=== PATIENT | female | born 1980 | race Caucasian/White ===

== ENCOUNTER 2016-07-28 14:25 | Emergency (ER) | payer OTHER ==
[2016-07-28 14:48] VITALS: BP 120/75; PULSE 76; RESP 16; TEMP 98
--- NOTE | 2016-07-28 15:33 | ED ---
General Adult HPI - General Chief complaint: Skin/Abscess/Foreign Body Stated complaint: ingrown toenail follow up/Pain Time Seen by Provider: 07/28/16 15:14 Source: patient, RN notes reviewed Mode of arrival: ambulatory Limitations: no limitations - History of Present Illness Initial comments: This is a 36-year-old female presents with left great toe pain after having her nail removed yesterday by a multiple launch [employer] crewmember. Patient states every 2-3 years her left great toenail falls off and grows back for no apparent reason. Patient states this is never painful but last week her left great toenail was painful. Patient states the multiple launch rocket [employer] crewmember told her she would not be in any pain after he removed the toenail. Patient is in pain today after getting her toenail removed yesterday. Patient has been taking Tylenol and Motrin for the pain with no relief. Patient is not on any antibiotics. Patient has not noticed any drainage or increased swelling to the area. Patient had x-rays done when she first had the pain one week ago and there is no evidence for fracture. Patient denies any past medical history. Patient denies any recent fever, chills, shortness breath, chest pain, abdominal pain, nausea/vomiting/diarrhea, back pain, numbness, tingling, hematuria, headache, or visual changes, or any other complaints. - Related Data Previous Rx's Medication Instructions Recorded Hydrocodone/Acetaminophen [[place] 1 each PO Q6HR PRN #20 tab 03/27/16 5-325] Cephalexin [Keflex] 500 mg PO Q12HR 7 Days 07/28/16 HYDROcodone/APAP 5-325MG [[place] 1 tab PO Q6HR #12 tab 07/28/16 5-325] Allergies Allergy/AdvReac Type Severity Reaction Status Date / Time codeine Allergy Rash/Hives Verified 07/28/16 14:48 morphine Allergy Nausea & Verified 07/28/16 14:48 Vomiting Review of Systems ROS Statement: Those systems with pertinent positive or pertinent negative responses have been documented in the HPI. ROS Other: All systems not noted in ROS Statement are negative. Past Medical History Additional Past Medical History / Comment(s): common variable immune deficiency , crohns, History of Any Multi-Drug Resistant Organisms: None Reported Additional Past Surgical History / Comment(s): port placement and removal, port replacement left side Past Psychological History: Bipolar Smoking Status: Former smoker Past Alcohol Use History: None Reported Past Drug Use History: None Reported General Exam - General Exam Comments Initial Comments: General: The patient is awake and alert, in no distress, and does not appear acutely ill. Neck: The neck is supple, there is no tenderness or JVD. Cardiovascular: There is a regular rate and rhythm. No murmur, rub or gallop is appreciated. Respiratory: Lungs are clear to auscultation, respirations are non-labored, breath sounds are equal. No wheezes, stridor, rales, or rhonchi. Musculoskeletal: There is tenderness to palpation to the nailbed of the left great toe. There is mild erythema to the nailbed and the nail has been removed. There is no swelling of the left great toe. Patient has no pain to the MTP joint of the left great toe. Patient has full range of motion, strength 5/5 and Sensation intact. Posterior tibial and dorsalis pedis pulses are 2+ bilaterally. Neurological: A&O x 3. CN II-XII intact, There are no obvious motor or sensory deficits. Coordination appears grossly intact. Speech is normal. Skin: See musculoskeletal. Skin is warm and dry and no rashes or lesions are noted. Psychiatric: Normal mood and affect. Limitations: no limitations Course Vital Signs 07/28/16 14:46 Temperature 98.0 F Pulse Rate 76 Respiratory 16 Rate Blood Pressure 120/75 O2 Sat by Pulse 98 Oximetry Medical Decision Making - Medical Decision Making This is a 28-year-old female presents with tenderness after having her left great toenail removed yesterday. On physical exam patient is afebrile in the EC. There is tenderness to palpation to the nailbed of the left great toe. There is mild erythema to the nailbed and the nail has been removed. There is no swelling of the left great toe. Patient has no pain to the MTP joint of the left great toe. Patient has full range of motion, strength 5/5 and Sensation intact. Posterior tibial and dorsalis pedis pulses are 2+ bilaterally. I discussed that patient was put on a course of Keflex and given Ulysses for breakthrough pain. I discussed continuation of Motrin as needed. I discussed the patient can continue to rest, ice, elevate and use Neosporin to the toe keeping it covered. I discussed return parameters. I discussed the patient should follow-up with her primary care physician in one to 2 days or return to the EC for any worsening symptoms or for any further concerns. Patient was receptive to this plan and patient will be discharged home. Disposition Clinical Impression: Pain of left great toe Disposition: HOME SELF-CARE Condition: Good Instructions: Nail Removal (ED) Additional Instructions: Please finish entire course of antibiotics. Please continue Motrin for pain please use Ulysses for breakthrough pain. Please follow-up with her primary care provider in one to 2 days or return to the EC for any worsening symptoms or for any further concerns. Prescriptions: Cephalexin [Keflex] 500 mg PO Q12HR 7 Days HYDROcodone/APAP 5-325MG [[place] 5-325] 1 tab PO Q6HR #12 tab Referrals: Carlos Gipson DO [Primary Care Provider] - 1-2 days Time of Disposition: 15:36
== END 2016-07-28 15:55 | disposition home or self-care (01) ==
LOC: EC 14:25
DX: M79.675 Pain in left toe(s) (principal); L53.9 Erythematous condition, unspecified; Z87.891 Personal history of nicotine dependence; Z88.5 Allergy status to narcotic agent; Z98.890 Other specified postprocedural states
CPT/HCPCS: 99283

== ENCOUNTER 2016-10-16 23:38 | Emergency (ER) | payer OTHER ==
[2016-10-17] MEDS ORDERED: HYDROcodone/APAP 5-325MG 1 EACH TAB PO STA (00:09)
[2016-10-17] MEDS ORDERED: KETOROLAC 60 MG/2 ML VIAL IM STA (00:10)
--- NOTE | 2016-10-17 00:13 | ED ---
Upper Extremity HPI - General Chief Complaint: Extremity Injury, Upper Stated Complaint: hand pain Time Seen by Provider: 10/16/16 23:56 Source: patient, RN notes reviewed Mode of arrival: ambulatory Limitations: no limitations - History of Present Illness Initial Comments: This is a pleasant, [id number] female presents emergency department complaining of left hand pain. Patient states that she is having problems with carpal tunnel syndrome for about the past year in both hands. She states that she had an EMG done about 1-1/2 weeks ago. She states that she had a needle put in her left thenar eminence area. She states that since then she's had increased pain to that area. She states she was using a grasping device at work tonight and basically had a locking sensation of her left thumb she states she is having discomfort in the area which is exacerbated by movement and palpation. She denies any distal paresthesias at this time. She denies any proximal injuries. There was no direct trauma. She denies any chest pain or shortness of breath. No fever or chills. 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 Patient denies any other orthopedic complaints at this time. No skin manifestations. No rashes or lesions.. MD Complaint: Injury to:: left, right, hand - Related Data Previous Rx's Medication Instructions Recorded Hydrocodone/Acetaminophen [[place] 1 each PO Q6HR PRN #20 tab 03/27/16 5-325] Cephalexin [Keflex] 500 mg PO Q12HR 7 Days 07/28/16 HYDROcodone/APAP 5-325MG [[place] 1 tab PO Q6HR #12 tab 07/28/16 5-325] HYDROcodone/APAP 5-325MG [[place] 5] 1 each PO Q4HR PRN #10 tab 10/17/16 Naproxen [Naprosyn] 500 mg PO Q12HR #24 tab 10/17/16 Allergies Allergy/AdvReac Type Severity Reaction Status Date / Time codeine Allergy Rash/Hives Verified 07/28/16 14:48 morphine Allergy Nausea & Verified 07/28/16 14:48 Vomiting Review of Systems ROS Statement: Those systems with pertinent positive or pertinent negative responses have been documented in the HPI. ROS Other: All systems not noted in ROS Statement are negative. Past Medical History Additional Past Medical History / Comment(s): common variable immune deficiency , crohns, History of Any Multi-Drug Resistant Organisms: None Reported Additional Past Surgical History / Comment(s): port placement and removal, port replacement left side Past Psychological History: Bipolar Smoking Status: Former smoker Past Alcohol Use History: None Reported Past Drug Use History: None Reported General Exam Limitations: no limitations General appearance: alert, in no apparent distress Head exam: Present: atraumatic, normocephalic, normal inspection Eye exam: Present: normal appearance, EOMI ENT exam: Present: normal exam Neck exam: Present: normal inspection, full ROM. Absent: tenderness, meningismus, lymphadenopathy Respiratory exam: Present: normal lung sounds bilaterally. Absent: respiratory distress, wheezes, rales, rhonchi, stridor Cardiovascular Exam: Present: regular rate, normal rhythm, normal heart sounds. Absent: systolic murmur, diastolic murmur, rubs, gallop, clicks Extremities exam: Present: normal inspection, tenderness, other (Patient has tenderness to the area of the thenar eminence on the left hand. There is no evidence of erythema or infection. Radial pulses 2+. Distal sensation intact. Capillary refill less than 2 seconds. Range of motion is limited secondary to pain. Patient is able to oppose with a thumb, however, only slightly.). Absent: full ROM Back exam: Present: normal inspection Neurological exam: Present: alert, oriented X3, CN II-XII intact Psychiatric exam: Present: normal affect, normal mood Skin exam: Present: warm, dry, intact, normal color, rash Course Vital Signs 10/16/16 23:48 Temperature 98.2 F Pulse Rate 83 Respiratory 16 Rate Blood Pressure 136/87 O2 Sat by Pulse 100 Oximetry Procedures - Procedures Initial comment: Short arm thumb spica splint applied on the left. Distal neurovascular status intact post-application. OCL splint Medical Decision Making - Medical Decision Making Patient be treated with immobilization. We'll have the patient follow-up with orthopedics. I'm unsure what the patient has this point. It seems like she has some form of neuropathy. X-rays were negative for fracture or any acute pathology. There does not appear to be any type of infection involved. Patient 's sensation is intact. Capillary refill less than 2 seconds. Patient told to follow-up without fail. Patient placed in a thumb spica splint. Disposition Clinical Impression: Neuropathic pain of left hand Disposition: HOME SELF-CARE Condition: Good Instructions: Paresthesia (ED), Splint Care (ED) Additional Instructions: Ensure that you follow-up with the orthopedic physician as directed. Return to the ER at once if the symptoms worsen or problems or difficulties arise. Wear the splint as directed and to follow-up with the orthopedic physician. Prescriptions: HYDROcodone/APAP 5-325MG [[place] 5] 1 each PO Q4HR PRN #10 tab PRN Reason: Pain Naproxen [Naprosyn] 500 mg PO Q12HR #24 tab Referrals: Carlos Gipson DO [Primary Care Provider] - 1-2 days Time of Disposition: 00:24
--- NOTE | 2016-10-17 00:33 | XR ---
EXAM: XR Left Hand Complete, 3 or More Views CLINICAL HISTORY: Reason: Pain TECHNIQUE: Frontal, lateral and oblique views of the left hand. COMPARISON: No relevant prior studies available. FINDINGS: Bones/joints: No evidence of fracture, dislocation or bony erosion. No significant arthritic changes. Soft tissues: No radiopaque foreign bodies identified. IMPRESSION: No significant bone or joint abnormalities.
[2016-10-17 01:02] VITALS: BP 112/54; PULSE 72; RESP 18; TEMP 99.1
== END 2016-10-17 01:03 | disposition home or self-care (01) ==
LOC: EC 23:38
DX: M79.642 Pain in left hand (principal); Z88.5 Allergy status to narcotic agent; Z87.891 Personal history of nicotine dependence
CPT/HCPCS: 99283; 29125; 96372; 73130; J1885

== ENCOUNTER 2016-12-02 22:44 | Emergency (ER) | payer MEDICARE, OTHER ==
[2016-12-02 22:59] VITALS: BP 123/79; PULSE 72; RESP 20; TEMP 99
[2016-12-02] MEDS ORDERED: CEPHALEXIN 500MG STARTER PACK 4 CAP BTL PO STA (23:15)
--- NOTE | 2016-12-02 23:21 | ED ---
General Adult HPI - General Chief complaint: ENT Stated complaint: Neck pain Time Seen by Provider: 12/02/16 23:04 Source: patient, RN notes reviewed Mode of arrival: ambulatory Limitations: no limitations - History of Present Illness Initial comments: Patient is a pleasant 36-year-old female presenting to the emergency department complaining of right-sided neck pain. Onset of symptoms was a few hours ago. Patient recently started hydrochlorothiazide and then increased the dose. Patient questions if this could be related to that. Patient has only been on this for a couple of days. Patient denies swelling of the back of her throat. No swelling. No facial swelling. No difficulty in breathing. No fevers. Patient did notice swollen lymph gland and states it is tender. - Related Data Home Medications Medication Instructions Recorded Confirmed ARIPiprazole [Abilify] 5 mg PO DAILY 12/02/16 12/02/16 Aspirin EC [Ecotrin Low Dose] 81 mg PO DAILY 12/02/16 12/02/16 Calcium Carb/Vitamin D3/Vit K1 1 tab PO DAILY 12/02/16 12/02/16 [Viactiv Soft Chew Tablet] Cyanocobalamin (Vitamin B-12) 1,000 mcg PO DAILY 12/02/16 12/02/16 [Vitamin B-12] Divalproex [Depakote] 250 mg PO BID 12/02/16 12/02/16 FLUoxetine HCL [PROzac] 40 mg PO DAILY 12/02/16 12/02/16 Hydrochlorothiazide [Hydrodiuril] 12.5 mg PO DAILY 12/02/16 12/02/16 Pyridoxine [Vitamin B-6] 50 mg PO DAILY 12/02/16 12/02/16 Previous Rx's Medication Instructions Recorded Cephalexin [Keflex] 500 mg PO QID #40 cap 12/02/16 Allergies Allergy/AdvReac Type Severity Reaction Status Date / Time codeine Allergy Rash/Hives Verified 12/02/16 22:59 morphine Allergy Rash/Hives Verified 12/02/16 23:15 Review of Systems ROS Statement: Those systems with pertinent positive or pertinent negative responses have been documented in the HPI. ROS Other: All systems not noted in ROS Statement are negative. Constitutional: Denies: fever Eyes: Denies: eye pain ENT: Denies: ear pain, throat pain Respiratory: Denies: cough Cardiovascular: Denies: chest pain Endocrine: Denies: fatigue Gastrointestinal: Denies: abdominal pain Genitourinary: Denies: urgency Musculoskeletal: Denies: back pain Skin: Denies: rash Neurological: Denies: headache Past Medical History Additional Past Medical History / Comment(s): common variable immune deficiency , crohns, History of Any Multi-Drug Resistant Organisms: None Reported Additional Past Surgical History / Comment(s): port placement and removal, port replacement left side Past Psychological History: Bipolar Smoking Status: Former smoker Past Alcohol Use History: None Reported Past Drug Use History: None Reported General Exam Limitations: no limitations General appearance: alert, in no apparent distress Head exam: Present: atraumatic Eye exam: Present: normal appearance, PERRL ENT exam: Present: normal oropharynx, other (No swelling of the posterior pharynx or tongue or lips. No swelling in the submandibular region.) Neck exam: Present: lymphadenopathy (Right-sided with tenderness) Respiratory exam: Present: normal lung sounds bilaterally Cardiovascular Exam: Present: regular rate, normal rhythm GI/Abdominal exam: Present: soft. Absent: tenderness Extremities exam: Absent: tenderness Neurological exam: Present: alert Psychiatric exam: Present: normal affect, normal mood Skin exam: Present: normal color Course Vital Signs 12/02/16 22:55 Temperature 99 F Pulse Rate 72 Respiratory 20 Rate Blood Pressure 123/79 O2 Sat by Pulse 98 Oximetry Medical Decision Making - Medical Decision Making Patient states Keflex is normally what works best for her and requests this with her history of common variable immune deficiency. Disposition Clinical Impression: Acute cervical adenitis Disposition: HOME SELF-CARE Condition: Stable Instructions: Adenitis (ED) Additional Instructions: Please follow-up with your doctor this week. Return for difficulty breathing, increased swelling, throat swelling, rash, worsening symptoms or other concerns. Prescriptions: Cephalexin [Keflex] 500 mg PO QID #40 cap Referrals: Carlos Gipson DO [Primary Care Provider] - 1-2 days Time of Disposition: 23:21
== END 2016-12-02 23:26 | disposition home or self-care (01) ==
LOC: EC 22:44
DX: L04.0 Acute lymphadenitis of face, head and neck (principal); F31.9 Bipolar disorder, unspecified; Z87.891 Personal history of nicotine dependence; Z79.899 Other long term (current) drug therapy; Z79.82 Long term (current) use of aspirin; Z88.5 Allergy status to narcotic agent
CPT/HCPCS: 99283

== ENCOUNTER → 2017-12-08 | Outpatient (CLI) | payer MEDICARE, OTHER ==
[2017-12-08 15:03] LABS: HGB 13.5 gm/dL (11.4-16.0); MCH 30.1 pg (25.0-35.0); MCHC 34.5 g/dL (31.0-37.0); MCV 87.1 fL (80.0-100.0); Mean Platelet Volume 7.4; Platelet Count 218 k/uL (150-450); RBC 4.48 m/uL (3.80-5.40); RDW 12.5 % (11.5-15.5); WBC 6.9 k/uL (3.8-10.6)
[2017-12-08 15:11] LABS: ALT 22 U/L (9-52); AST 21 U/L (14-36); Albumin 4.3 g/dL (3.5-5.0); Alkaline Phosphatase 57 U/L (38-126); Anion Gap 9 mmol/L; Blood Urea Nitrogen 11 mg/dL (7-17); Calcium 9.3 mg/dL (8.4-10.2); Carbon Dioxide 28 mmol/L (22-30); Chloride 102 mmol/L (98-107); Glucose 125 mg/dL (74-99); Potassium 4.7 mmol/L (3.5-5.1); Sodium 139 mmol/L (137-145); Total Bilirubin 0.3 mg/dL (0.2-1.3); Total Protein 6.7 g/dL (6.3-8.2)
[2017-12-08 15:27] LABS: T4, Free (Free Thyroxine) 0.73 ng/dL (0.78-2.19)
[2017-12-08 19:24] LABS: Thyroid Peroxidase Antibodies 189.4 U/mL (0.0-60.0)
[2017-12-08 21:01] LABS: ACTH 11.4 pg/mL (0.00-45.99)
== END | disposition home or self-care (01) ==
LOC: LABWHC1 14:40
PROVIDERS: ATTEND Internal Medicine Endocrinology, Diabetes & Metabolism
DX: R53.83 Other fatigue (principal)
CPT/HCPCS: 36415; 80053; 82024; 82533; 82607; 83001; 83002; 84146; 84439; 84443; 84481; 85027; 86376

== ENCOUNTER → 2018-01-03 | Outpatient (CLI) | payer MEDICARE, OTHER | END | disposition home or self-care (01) | LOC: LABWHC1 14:11 | PROVIDERS: ATTEND Internal Medicine Endocrinology, Diabetes & Metabolism | DX: R53.83 Other fatigue (principal) | CPT/HCPCS: 36415; 84443; 86376 ==

== ENCOUNTER 2018-01-08 19:02 | Emergency (ER) | payer MEDICARE, OTHER ==
[2018-01-08 19:12] VITALS: BP 113/67; PULSE 61; RESP 18; TEMP 98.7
[2018-01-08] MEDS ORDERED: CLINDAMYCIN 150 MG CAP PO STA (19:47)
--- NOTE | 2018-01-08 19:47 | ED ---
ENT HPI - General Chief complaint: Dental/Oral Stated complaint: DENTAL PAIN Time Seen by Provider: 01/08/18 19:18 Source: patient, RN notes reviewed, old records reviewed Mode of arrival: ambulatory Limitations: no limitations - History of Present Illness Initial comments: This Patient is a 37-year-old female presents emergency department today she complains of dental pain. Patient reports that she had a tooth removal by oral surgeon 3 days ago. Patient states that she was then started on amoxicillin after the surgery. She reports she has a history of immune insufficiency. She is concerned with amoxicillin was not working for infection prevention. She reports is having worsening pain. She states that she has worsening swelling over the side of her face and jaw line. She reports the pain seems to be spreading. She reports that they were initially going to close the wound tooth removal of sutures however thethat her tooth had was too large for them to put sutures. Patient has been taking Motrin Tylenol and pain medication with little relief. - Related Data Home Medications Medication Instructions Recorded Confirmed ARIPiprazole [Abilify] 5 mg PO HS 12/02/16 12/02/16 Aspirin EC [Ecotrin Low Dose] 81 mg PO DAILY 12/02/16 12/02/16 Calcium Carb/Vitamin D3/Vit K1 1 tab PO DAILY 12/02/16 12/02/16 [Viactiv Soft Chew Tablet] Cyanocobalamin (Vitamin B-12) 1,000 mcg PO DAILY 12/02/16 12/02/16 [Vitamin B-12] Divalproex [Depakote] 250 mg PO BID 12/02/16 12/02/16 FLUoxetine HCL [PROzac] 40 mg PO DAILY 12/02/16 12/02/16 Hydrochlorothiazide [Hydrodiuril] 12.5 mg PO BID 12/02/16 12/02/16 Pyridoxine [Vitamin B-6] 50 mg PO DAILY 12/02/16 12/02/16 Previous Rx's Medication Instructions Recorded Cephalexin [Keflex] 500 mg PO QID #40 cap 12/02/16 Clindamycin [Cleocin] 450 mg PO TID 7 Days capsule 01/08/18 HYDROcodone/APAP 5-325MG [[place] 1 tab PO Q6HR PRN #10 tab 01/08/18 5-325] Allergies Allergy/AdvReac Type Severity Reaction Status Date / Time codeine Allergy Rash/Hives Verified 01/08/18 19:11 morphine Allergy Rash/Hives Verified 01/08/18 19:11 Review of Systems ROS Statement: Those systems with pertinent positive or pertinent negative responses have been documented in the HPI. ROS Other: All systems not noted in ROS Statement are negative. Past Medical History Past Medical History: No Reported History Additional Past Medical History / Comment(s): common variable immune deficiency , crohns, History of Any Multi-Drug Resistant Organisms: None Reported Additional Past Surgical History / Comment(s): port placement and removal, port replacement left side Past Psychological History: Bipolar Smoking Status: Former smoker Past Alcohol Use History: None Reported Past Drug Use History: None Reported General Exam - General Exam Comments Initial Comments: 37-year-old female. Alert and oriented. No significant distress. Limitations: no limitations General appearance: alert, in no apparent distress Head exam: Present: atraumatic, normocephalic, normal inspection Eye exam: Present: normal appearance, PERRL, EOMI. Absent: scleral icterus, conjunctival injection, periorbital swelling ENT exam: Present: normal exam, mucous membranes moist. Absent: normal oropharynx (Patient has evidence of removed . Evidence would appears to be a dry socket in the area. No large open area. She is very tender to palpation. Swelling noted. Concern for possibility of infection.) Neck exam: Present: normal inspection. Absent: tenderness, meningismus, lymphadenopathy Respiratory exam: Present: normal lung sounds bilaterally. Absent: respiratory distress, wheezes, rales, rhonchi, stridor Cardiovascular Exam: Present: regular rate, normal rhythm, normal heart sounds. Absent: systolic murmur, diastolic murmur, rubs, gallop, clicks Extremities exam: Present: normal inspection, full ROM, normal capillary refill. Absent: tenderness, pedal edema, joint swelling, calf tenderness Back exam: Present: normal inspection Neurological exam: Present: alert Psychiatric exam: Present: normal affect, normal mood Course Vital Signs 01/08/18 19:08 Temperature 98.7 F Pulse Rate 61 Respiratory 18 Rate Blood Pressure 113/67 O2 Sat by Pulse 96 Oximetry Medical Decision Making - Medical Decision Making Patient is a 37-year-old female with significant pain and swelling over her right molars after is removal. Patient has evidence of swelling over the lower jaw. She has what appears to be a dry socket with associated infection around the gum and this time. We'll change the Patient to clindamycin antibiotic. I discussed using Motrin Tylenol. We'll write the Patient for short course of pain medication as well. Discussed return parameters. Patient understands treatment plan plan will comply. Return is stressed that she needs follow-up with her oral surgeon on Wednesday. Disposition Clinical Impression: Dental infection Disposition: HOME SELF-CARE Condition: Good Instructions: Dental Abscess (ED) Additional Instructions: Patient advised follow-up with primary care physician and oral surgeon. Take antibiotics as prescribed. Return to emergency department if any alarming signs or symptoms occur. Prescriptions: Clindamycin [Cleocin] 450 mg PO TID 7 Days capsule HYDROcodone/APAP 5-325MG [[place] 5-325] 1 tab PO Q6HR PRN #10 tab PRN Reason: Pain Is patient prescribed a controlled substance at d/c from ED?: No Referrals: Carlos Gipson DO [Primary Care Provider] - 1-2 days Time of Disposition: 19:42
== END 2018-01-08 20:01 | disposition home or self-care (01) ==
LOC: EC 19:02
DX: K04.7 Periapical abscess without sinus (principal); K08.409 Partial loss of teeth, unspecified cause, unspecified class; F31.9 Bipolar disorder, unspecified; Z87.891 Personal history of nicotine dependence; Z79.82 Long term (current) use of aspirin; Z79.899 Other long term (current) drug therapy; Z88.5 Allergy status to narcotic agent
CPT/HCPCS: 99283

== ENCOUNTER 2018-03-31 17:06 | Inpatient (IN) | payer MEDICARE, OTHER ==
[2018-03-31] MEDS ORDERED: HYDROmorphone 1 MG/ML 1 ML SYRINGE IVP STA (18:18)
[2018-03-31] MEDS ORDERED: SODIUM CHLORIDE 0.9% 1,000 ML IV STA (18:18)
[2018-03-31] MEDS ORDERED: ONDANSETRON 4 MG/2 ML VIAL IVP STA (18:33)
[2018-03-31 18:44] LABS: Basophils % (A) 0 %; Eosinophils # (A) 0.2 k/uL (0-0.7); Eosinophils % (A) 2 %; HCT 39.2 % (34.0-46.0); HGB 13.2 gm/dL (11.4-16.0); Lymphocytes # (A) 1.4 k/uL (1.0-4.8); Lymphocytes % (A) 15 %; MCH 29.2 pg (25.0-35.0); MCHC 33.6 g/dL (31.0-37.0); Mean Platelet Volume 7.1; Monocytes # (A) 0.4 k/uL (0-1.0); Monocytes % (A) 4 %; Neutrophils # (A) 7.3 k/uL (1.3-7.7); Neutrophils % (A) 77 %; Platelet Count 221 k/uL (150-450); RBC 4.51 m/uL (3.80-5.40); RDW 12.4 % (11.5-15.5); WBC 9.5 k/uL (3.8-10.6)
[2018-03-31 18:53] LABS: ALT 14 U/L (9-52); AST 21 U/L (14-36); Albumin 4.1 g/dL (3.5-5.0); Alkaline Phosphatase 60 U/L (38-126); Anion Gap 7 mmol/L; Blood Urea Nitrogen 11 mg/dL (7-17); Calcium 9.5 mg/dL (8.4-10.2); Carbon Dioxide 26 mmol/L (22-30); Chloride 104 mmol/L (98-107); Glucose 115 mg/dL (74-99); Potassium 4.4 mmol/L (3.5-5.1); Sodium 137 mmol/L (137-145); Total Bilirubin 0.3 mg/dL (0.2-1.3); Total Protein 6.6 g/dL (6.3-8.2)
[2018-03-31] MEDS ORDERED: NALOXONE 0.4 MG/ML 1 ML VIAL IV PRN (19:02)
[2018-03-31] MEDS ORDERED: KETOROLAC 30 MG/ML 1 ML VIAL IVP PRN (19:02)
--- NOTE | 2018-03-31 19:02 | ED ---
General Adult HPI <Faustino Marrero - Last Filed: 03/31/18 19:10> - General Source: patient, RN notes reviewed Mode of arrival: ambulatory Limitations: no limitations <Guillermo Anaya - Last Filed: 03/31/18 19:58> - General Chief complaint: Abdominal Pain Stated complaint: Gallbladder issues Time Seen by Provider: 03/31/18 17:22 - History of Present Illness Initial comments: 37-year-old female with a PMH of variable immunodeficiency, Crohn's presents to the emergency department for a chief complaint of upper abdominal pain 3.5 weeks. Patient states she was evaluated by her primary care physician who ordered a CAT scan and gallbladder study. Patient states she got a call from her primary care provider who told her to present to the emergency department immediately. Patient states she is having loose bowel movements which is normal for her as she has Crohn's disease. She denies noticing any blood in the stool. Patient admits to mild nausea but denies vomiting. She states she is passing gas. She states she is eating and drinking without difficulty. Patient has no other complaints at this time including shortness of breath, chest pain, headache, or visual changes. (Guillermo Anaya) - Related Data Home Medications Medication Instructions Recorded Confirmed FLUoxetine HCL [PROzac] 40 mg PO DAILY 12/02/16 03/31/18 Hizentra 10gm 10 gm SQ TH 03/31/18 03/31/18 Levothyroxine Sodium 25 mcg PO DAILY 03/31/18 03/31/18 Multivitamins, Thera [Multivitamin 1 tab PO DAILY 03/31/18 03/31/18 (formulary)] Allergies Allergy/AdvReac Type Severity Reaction Status Date / Time codeine AdvReac Nausea & Verified 03/31/18 17:42 Vomiting morphine AdvReac Nausea & Verified 03/31/18 17:42 Vomiting Review of Systems ROS Other: All systems not noted in ROS Statement are negative. <Faustino Marrero - Last Filed: 03/31/18 19:10> ROS Other: All systems not noted in ROS Statement are negative. <Guillermo Anaya - Last Filed: 03/31/18 19:58> ROS Statement: Those systems with pertinent positive or pertinent negative responses have been documented in the HPI. Past Medical History Past Medical History: No Reported History Additional Past Medical History / Comment(s): common variable immune deficiency , crohns, History of Any Multi-Drug Resistant Organisms: None Reported Additional Past Surgical History / Comment(s): port placement and removal, port replacement B side Past Psychological History: Bipolar Smoking Status: Former smoker Past Alcohol Use History: None Reported Past Drug Use History: None Reported <Guillermo Anaya - Last Filed: 03/31/18 19:58> General Exam Limitations: no limitations General appearance: alert, in no apparent distress Head exam: Present: atraumatic, normocephalic, normal inspection Eye exam: Present: normal appearance, PERRL, EOMI. Absent: scleral icterus, conjunctival injection, periorbital swelling ENT exam: Present: normal exam, mucous membranes moist Neck exam: Present: normal inspection, full ROM. Absent: tenderness, meningismus, lymphadenopathy Respiratory exam: Present: normal lung sounds bilaterally. Absent: respiratory distress, wheezes, rales, rhonchi, stridor Cardiovascular Exam: Present: regular rate, normal rhythm, normal heart sounds. Absent: systolic murmur, diastolic murmur, rubs, gallop, clicks GI/Abdominal exam: Present: soft, tenderness (Tenderness in the left upper and left lower quadrants), rebound (Rebound tenderness noted in the left upper quadrant), normal bowel sounds. Absent: distended, guarding, rigid Neurological exam: Present: alert, oriented X3, CN II-XII intact Psychiatric exam: Present: normal affect, normal mood <Guillermo Anaya P - Last Filed: 03/31/18 19:58> Vital Signs 03/31/18 03/31/18 17:14 19:28 Temperature 98.2 F 98.3 F Pulse Rate 92 75 Respiratory 18 16 Rate Blood Pressure 116/82 116/67 O2 Sat by Pulse 97 97 Oximetry Medical Decision Making - Lab Data Result diagrams: 03/31/18 18:25 03/31/18 18:25 <Faustino Marrero - Last Filed: 03/31/18 19:10> - Lab Data Result diagrams: 03/31/18 18:25 03/31/18 18:25 <Guillermo Anaya - Last Filed: 03/31/18 19:58> - Medical Decision Making Patient was reevaluated by myself, Dr. Marrero. CT report reviewed. Abdomen with moderate tenderness left upper abdomen. Patient updated on results and plan. Case was discussed in detail with Dr. Hurtado, who will admit with IV fluids and IV antibiotics. (Faustino Marrero) 89-year-old female presents to the emergency department after receiving results from a CAT scan outpatient study. Patient states she has been having upper abdominal pain for about 3.5 weeks and thought this was related to gallbladder. CT of the abdomen ordered by primary care shows intussusception of the small bowel in the left upper quadrant with bowel wall thickening that may represent active Crohn's disease or enteritis. There is also adjacent mesenteric edema. Findings are compatible with a small bowel intussusception and surrounding edema. Less than tried as or panniculitis in the differential diagnosis as well according to radiologist. On exam patient does have left upper quadrant rebound tenderness as well as left lower quadrant tenderness. CBC, CMP unremarkable. Lactate 1.4. Dr. Marrero spoke with Dr. Guerrero, surgery who will admit patient. Patient given IV fluids and nothing by mouth. Blood cultures drawn and patient started on Zosyn. (Guillermo Anaya) - Lab Data Lab Results 03/31/18 03/31/18 03/31/18 Range/Units 18:25 18:25 18:25 WBC 9.5 (3.8-10.6) k/uL RBC 4.51 (3.80-5.40) m/uL Hgb 13.2 (11.4-16.0) gm/dL Hct 39.2 (34.0-46.0) % MCV 87.0 (80.0-100.0) fL MCH 29.2 (25.0-35.0) pg MCHC 33.6 (31.0-37.0) g/dL RDW 12.4 (11.5-15.5) % Plt Count 221 (150-450) k/uL Neutrophils % 77 % Lymphocytes % 15 % Monocytes % 4 % Eosinophils % 2 % Basophils % 0 % Neutrophils # 7.3 (1.3-7.7) k/uL Lymphocytes # 1.4 (1.0-4.8) k/uL Monocytes # 0.4 (0-1.0) k/uL Eosinophils # 0.2 (0-0.7) k/uL Basophils # 0.0 (0-0.2) k/uL Sodium 137 (137-145) mmol/L Potassium 4.4 (3.5-5.1) mmol/L Chloride 104 (98-107) mmol/L Carbon Dioxide 26 (22-30) mmol/L Anion Gap 7 mmol/L BUN 11 (7-17) mg/dL Creatinine 0.61 (0.52-1.04) mg/dL Est GFR (CKD-EPI)AfAm >90 (>60 ml/min/1.73 sqM) Est GFR (CKD-EPI)NonAf >90 (>60 ml/min/1.73 sqM) Glucose 115 H (74-99) mg/dL Plasma Lactic Acid Keith 1.4 (0.7-2.0) mmol/L Calcium 9.5 (8.4-10.2) mg/dL Total Bilirubin 0.3 (0.2-1.3) mg/dL AST 21 (14-36) U/L ALT 14 (9-52) U/L Alkaline Phosphatase 60 (38-126) U/L Total Protein 6.6 (6.3-8.2) g/dL Albumin 4.1 (3.5-5.0) g/dL Urine Color Urine Appearance (Clear) Urine pH (5.0-8.0) Ur Specific Benedict (1.001-1.035) Urine Protein (Negative) Urine Glucose (UA) (Negative) Urine Ketones (Negative) Urine Blood (Negative) Urine Nitrite (Negative) Urine Bilirubin (Negative) Urine Urobilinogen (<2.0) mg/dL Ur Leukocyte Esterase (Negative) Urine HCG, Qual (Not Detectd) 03/31/18 03/31/18 Range/Units 18:25 18:25 WBC (3.8-10.6) k/uL RBC (3.80-5.40) m/uL Hgb (11.4-16.0) gm/dL Hct (34.0-46.0) % MCV (80.0-100.0) fL MCH (25.0-35.0) pg MCHC (31.0-37.0) g/dL RDW (11.5-15.5) % Plt Count (150-450) k/uL Neutrophils % % Lymphocytes % % Monocytes % % Eosinophils % % Basophils % % Neutrophils # (1.3-7.7) k/uL Lymphocytes # (1.0-4.8) k/uL Monocytes # (0-1.0) k/uL Eosinophils # (0-0.7) k/uL Basophils # (0-0.2) k/uL Sodium (137-145) mmol/L Potassium (3.5-5.1) mmol/L Chloride (98-107) mmol/L Carbon Dioxide (22-30) mmol/L Anion Gap mmol/L BUN (7-17) mg/dL Creatinine (0.52-1.04) mg/dL Est GFR (CKD-EPI)AfAm (>60 ml/min/1.73 sqM) Est GFR (CKD-EPI)NonAf (>60 ml/min/1.73 sqM) Glucose (74-99) mg/dL Plasma Lactic Acid Keith (0.7-2.0) mmol/L Calcium (8.4-10.2) mg/dL Total Bilirubin (0.2-1.3) mg/dL AST (14-36) U/L ALT (9-52) U/L Alkaline Phosphatase (38-126) U/L Total Protein (6.3-8.2) g/dL Albumin (3.5-5.0) g/dL Urine Color Colorless Urine Appearance Clear (Clear) Urine pH 6.5 (5.0-8.0) Ur Specific Benedict 1.006 (1.001-1.035) Urine Protein Negative (Negative) Urine Glucose (UA) Negative (Negative) Urine Ketones Negative (Negative) Urine Blood Negative (Negative) Urine Nitrite Negative (Negative) Urine Bilirubin Negative (Negative) Urine Urobilinogen <2.0 (<2.0) mg/dL Ur Leukocyte Esterase Negative (Negative) Urine HCG, Qual Not Detected (Not Detectd) Disposition <Faustino Marrero - Last Filed: 03/31/18 19:10> Is patient prescribed a controlled substance at d/c from ED?: No Time of Disposition: 19:02 <Guillermo Anaya - Last Filed: 03/31/18 19:58> Clinical Impression: Intussusception Disposition: ADMITTED IP TO THIS [facility] Condition: Good
[2018-03-31 19:20] LABS: Appearance,Urine Clear (Clear); Bilirubin,Urine Negative (Negative); Blood,Urine Negative (Negative); Color,Urine Colorless; Glucose,Urine (UA) Negative (Negative); Ketones,Urine Negative (Negative); Leukocyte Esterase,Urine Negative (Negative); Nitrite,Urine Negative (Negative); PH, Urine 6.5 (5.0-8.0); Protein,Urine Negative (Negative); Specific Gravity,Urine 1.006 (1.001-1.035); Urobilinogen,Urine <2.0 mg/dL (<2.0)
[2018-03-31] MEDS: PIPERACILLIN-TAZOBACTAM 3.375 GM in SODIUM CHLORIDE 0.9% 100 ML IVPB SCH (20:01)
[2018-03-31] MEDS: SODIUM CHLORIDE 0.9% 1,000 ML IV SCH (20:01)
[2018-03-31] MEDS: HYDROmorphone 1 MG/ML 1 ML SYRINGE IVP PRN (21:27)
[2018-04-01] MEDS: HYDROmorphone 1 MG/ML 1 ML SYRINGE IVP PRN ×8 (00:59→22:56)
[2018-04-01] MEDS: PIPERACILLIN-TAZOBACTAM 3.375 GM in SODIUM CHLORIDE 0.9% 100 ML IVPB SCH ×3 (04:27→20:57)
[2018-04-01] MEDS: SODIUM CHLORIDE 0.9% 1,000 ML IV SCH ×3 (05:27→20:30)
[2018-04-01] MEDS ORDERED: SODIUM CHLORIDE 0.9% 1,000 ML IV ONE (11:41)
[2018-04-01] MEDS: PANTOPRAZOLE 40 MG/10 ML VIAL IVP SCH ×2 (11:52→20:26)
--- NOTE | 2018-04-01 12:02 | P.GSCN ---
History of Present Illness Consult date: 04/01/18 Reason for Consult: Left upper quadrant pain History of present illness: 37-year-old female who presented to be evaluated in the emergency room for left upper quadrant abdominal pain with a nausea sensation poor appetite patient stated it started 3 weeks prior became more symptomatic did notify her PCP who did order a CAT scan of the abdomen with contrast. Reviewing the report appeared to be intussusception of the small bowel in the left upper quadrant. Bowel wall thickening may represent active Crohn's disease in which the patient does have a history of. The PCP review the report and advised the patient given the clinical findings on the CAT scan to come into the emergency room to be evaluated patient continues to report having left upper quadrant abdominal discomfort. Additionally patient did undergo HIDA scan on March 31 reviewing that report hyper contractive state suggested EF percent AST and ALT were not elevated urinalysis negative electrolytes within normal limits white count was 9 Currently patient continues to report having discomfort in the left upper quadrant states has Crohn's disease so has frequent loose stools abdomen currently is soft with positive tenderness in the left upper quadrant Review of Systems Essentially unremarkable except as mentioned in the present illness Past Medical History Past Medical History: No Reported History Additional Past Medical History / Comment(s): common variable immune deficiency , crohns, History of Any Multi-Drug Resistant Organisms: None Reported Additional Past Surgical History / Comment(s): port placement and removal, port replacement B side Past Anesthesia/Blood Transfusion Reactions: No Reported Reaction Past Psychological History: Bipolar Smoking Status: Former smoker Past Alcohol Use History: None Reported Past Drug Use History: None Reported - Past Family History Mother Family Medical History: AFIB, Diabetes Mellitus, Hyperlipidemia, Hypertension, Osteoarthritis (OA) Additional Family Medical History / Comment(s): skin cancer Father Family Medical History: Cancer, Congestive Heart Failure (CHF), Coronary Artery Disease (CAD), Hypertension Additional Family Medical History / Comment(s): lung cancer Medications and Allergies Home Medications Medication Instructions Recorded Confirmed Type FLUoxetine HCL [PROzac] 40 mg PO DAILY 12/02/16 03/31/18 History Hizentra 10gm 10 gm SQ TH 03/31/18 03/31/18 History Levothyroxine Sodium 25 mcg PO DAILY 03/31/18 03/31/18 History Multivitamins, Thera [Multivitamin 1 tab PO DAILY 03/31/18 03/31/18 History (formulary)] Allergies Allergy/AdvReac Type Severity Reaction Status Date / Time codeine AdvReac Nausea & Verified 03/31/18 17:42 Vomiting morphine AdvReac Nausea & Verified 03/31/18 17:42 Vomiting Surgical - Exam Vital Signs Temp Pulse Resp BP Pulse Ox 98.2 F 92 18 116/82 97 03/31/18 17:14 03/31/18 17:14 03/31/18 17:14 03/31/18 17:14 03/31/18 17:14 GENERAL APPEARANCE: 37-year-old female patient is alert, oriented, in no acute distress. Reports pain medication has not been effective for pain control continues to have left upper quadrant abdominal pain VITAL SIGNS: Reviewed HEENT: Head is normocephalic and atraumatic. Pupils are equal and reactive. The nares are patent. Oropharynx is clear without lesions. NECK: Supple without lymphadenopathy. Traches midline. HEART: S1, S2. Regular rate and rhythm. Denying chest pain LUNGS: No crackles or wheezes are heard. On room air no shortness of breath ABDOMEN: Soft, tenderness left upper quadrant and left lower quadrant with positive rebound nondistended few bowel sounds. No peritoneal signs. No palpable organomegaly or masses. EXTREMITIES: Normal skin color and turgor. No cyanosis, rash, ulceration, clubbing or edema. Radial pedal pulses are 2/4 bilaterally. NEUROLOGICAL: No focal deficits. Strength and sensation are grossly intact. Results - Labs 03/31/18 18:25 03/31/18 18:25 Abnormal Lab Results - Last 24 Hours (Table) 03/31/18 Range/Units 18:25 Glucose 115 H (74-99) mg/dL Diabetes panel 03/31/18 Range/Units 18:25 Sodium 137 (137-145) mmol/L Potassium 4.4 (3.5-5.1) mmol/L Chloride 104 (98-107) mmol/L Carbon Dioxide 26 (22-30) mmol/L BUN 11 (7-17) mg/dL Creatinine 0.61 (0.52-1.04) mg/dL Glucose 115 H (74-99) mg/dL Calcium 9.5 (8.4-10.2) mg/dL AST 21 (14-36) U/L ALT 14 (9-52) U/L Alkaline Phosphatase 60 (38-126) U/L Total Protein 6.6 (6.3-8.2) g/dL Albumin 4.1 (3.5-5.0) g/dL Calcium panel 03/31/18 Range/Units 18:25 Calcium 9.5 (8.4-10.2) mg/dL Albumin 4.1 (3.5-5.0) g/dL Pituitary panel 03/31/18 Range/Units 18:25 Sodium 137 (137-145) mmol/L Potassium 4.4 (3.5-5.1) mmol/L Chloride 104 (98-107) mmol/L Carbon Dioxide 26 (22-30) mmol/L BUN 11 (7-17) mg/dL Creatinine 0.61 (0.52-1.04) mg/dL Glucose 115 H (74-99) mg/dL Calcium 9.5 (8.4-10.2) mg/dL Adrenal panel 03/31/18 Range/Units 18:25 Sodium 137 (137-145) mmol/L Potassium 4.4 (3.5-5.1) mmol/L Chloride 104 (98-107) mmol/L Carbon Dioxide 26 (22-30) mmol/L BUN 11 (7-17) mg/dL Creatinine 0.61 (0.52-1.04) mg/dL Glucose 115 H (74-99) mg/dL Calcium 9.5 (8.4-10.2) mg/dL Total Bilirubin 0.3 (0.2-1.3) mg/dL AST 21 (14-36) U/L ALT 14 (9-52) U/L Alkaline Phosphatase 60 (38-126) U/L Total Protein 6.6 (6.3-8.2) g/dL Albumin 4.1 (3.5-5.0) g/dL Assessment and Plan Assessment: Impression Present on admission left upper and lower quadrant abdominal pain suspect due to intuaausception of the small bowel in the left upper quadrant with bowel wall thickening may represent active Crohn's disease History of Crohn's disease HIDA scan showed hyper contractility EF 96% Present on admission a history of poor oral intake due to persistent nausea with dry heaves clinical dehydration Plan IV fluid bolus as ordered Pain control IV Zosyn as ordered DVT and GI prophylaxis Further surgical recommendations pending clinical course IV fluid for hydration The above impression and plan of care have been discussed and directed by signing physician. Marta Parker nurse practitioner acting as scribe for signing physician.
[2018-04-01] MEDS: ONDANSETRON 4 MG/2 ML VIAL IVP PRN ×2 (12:59→20:26)
--- NOTE | 2018-04-01 13:28 | P.CONS ---
History of Present Illness - Reason for Consult Consult date: 04/01/18 Medical management - Chief Complaint Abdominal pain - History of Present Illness Patient is a 37-year-old female with a PMH of variable immunodeficiency, Crohn' s disease, hypothyroidism and bipolar disorder presents to the emergency department for a chief complaint of upper abdominal pain 3.5 weeks. Patient states she was evaluated by her primary care physician who ordered a CAT scan and gallbladder study. Patient states she got a call from her primary care provider who told her to present to the emergency department immediately. Patient states she is having loose bowel movements which is normal for her as she has Crohn's disease. Patient is not on any maintenance medications for Crohn's disease. Patient did have prior exacerbation and was given steroids. Patient does take immunoglobulins subcutaneously every week at home. She denies noticing any blood in the stool. Patient admits to nausea but denies vomiting. She states she is passing gas. She states she is eating and drinking without difficulty. Patient has no other complaints at this time including shortness of breath, chest pain, headache, or visual changes. Hepatobiliary scan showed hypercontractile state suggested. CT of the abdominal pelvis showed a paced to be intussusception of small bowel in the left upper quadrant. Bowel wall thickening may represent active Crohn's disease or enteritis. There is adjacent mesenteric edema. Findings compatible with small bowel intussusception and surrounding edema. Mrs. enteritis are pancolitis in the differential diagnosis. No leukocytosis. Lites within normal limits. Review of Systems Constitutional: Patient denies any fever or chills . No generalized weakness or weight loss. Abdomen: A maher does have nausea. No vomiting. Patient does have abdominal pain. No change in diarrhea. Cardiovascular: Patient denies any chest pain or short of breath no palpitations. Respiratory: patient denied any cough is from production. No shortness of breath Neurologic: Patient denied any numbness or tingling headache. Musculoskeletal: Patient denies any complaints of joint swelling or deformity. Skin: Negative Psychiatric: Negative Endocrine: No heat or cold intolerance. No recent weight gain. Genitourinary: No dysuria or hematuria. All other 14 point ROS negative except the above Past Medical History Past Medical History: No Reported History Additional Past Medical History / Comment(s): common variable immune deficiency , crohns, History of Any Multi-Drug Resistant Organisms: None Reported Additional Past Surgical History / Comment(s): port placement and removal, port replacement B side Past Anesthesia/Blood Transfusion Reactions: No Reported Reaction Past Psychological History: Bipolar Smoking Status: Former smoker Past Alcohol Use History: None Reported Past Drug Use History: None Reported - Past Family History Mother Family Medical History: AFIB, Diabetes Mellitus, Hyperlipidemia, Hypertension, Osteoarthritis (OA) Additional Family Medical History / Comment(s): skin cancer Father Family Medical History: Cancer, Congestive Heart Failure (CHF), Coronary Artery Disease (CAD), Hypertension Additional Family Medical History / Comment(s): lung cancer Medications and Allergies Home Medications Medication Instructions Recorded Confirmed Type FLUoxetine HCL [PROzac] 40 mg PO DAILY 12/02/16 03/31/18 History Hizentra 10gm 10 gm SQ TH 03/31/18 03/31/18 History Levothyroxine Sodium 25 mcg PO DAILY 03/31/18 03/31/18 History Multivitamins, Thera [Multivitamin 1 tab PO DAILY 03/31/18 03/31/18 History (formulary)] Allergies Allergy/AdvReac Type Severity Reaction Status Date / Time codeine AdvReac Nausea & Verified 03/31/18 17:42 Vomiting morphine AdvReac Nausea & Verified 03/31/18 17:42 Vomiting Physical Exam Vitals: Vital Signs Temp Pulse Pulse Resp BP BP Pulse Ox 04/01/18 07:00 97.4 F L 68 16 111/64 95 04/01/18 02:32 98.4 F 59 L 16 90/48 99 03/31/18 19:28 98.3 F 75 16 116/67 97 03/31/18 17:14 98.2 F 92 18 116/82 97 Intake and Output 03/31/18 04/01/18 04/01/18 22:59 06:59 14:59 Intake Total 100 Balance 100 Intake: Intake, IV Titration 100 Amount Piperacillin-Tazobactam 3 100 .375 gm In Sodium Chloride 0.9% 100 ml @ 25 mls/hr IVPB Q8H [facility] Rx#: [id number] Other: Voiding Method Toilet # Voids 2 1 Weight 113.398 kg PHYSICAL EXAMINATION: Patient is lying in the bed comfortably, no acute distress, awake alert and oriented.. HEENT: Normocephalic. Neck is supple. Pupils reactive. Nostrils clear. Oral cavity is moist. Ears reveal no drainage. Neck reveals no JVD, carotid bruits, or thyromegaly. CHEST EXAMINATION: Trachea is central. Symmetrical expansion. Lung romero clear to auscultation and percussion. CARDIAC: Normal S1, S2 with no gallops. No murmurs ABDOMEN: Soft. Upper abdominal tenderness with palpation. No guarding or rigidity. Bowel sounds normal. No organomegaly. No abdominal bruits. Extremities: reveal no edema. No clubbing or cyanosis Neurologically awake, alert, oriented x3 with well-coordinated movements. No focal deficits noted Skin: No rash or skin lesions. Psychiatric: Coperative. Nonsuicidal Musculoskeletal: No joint swelling or deformity. Normal range of motion. Results CBC & Chem 7: 03/31/18 18:25 03/31/18 18:25 Labs: Abnormal Lab Results - Last 24 Hours (Table) 03/31/18 Range/Units 18:25 Glucose 115 H (74-99) mg/dL Assessment and Plan Assessment: Left upper small bowel intussusception Possible enteritis versus acute Crohn's disease exacerbation Crohn's disease Hypothyroidism Common Variable immunodeficiency Obesity DVT prophylaxis Plan: Patient will be kept nothing by mouth. Continue with IV fluids and symptomatic management for pain and nausea. Continue with empiric antibiotics. Continue the current management. Will follow closely and further recommendations based on the clinical course. Thank you for your consult. Time with Patient: Greater than 30
--- NOTE | 2018-04-01 14:30 | P.GSHP ---
History of Present Illness H&P Date: 04/01/18 Chief Complaint: Left upper quadrant pain 37-year-old female who presented to be evaluated in the emergency room for left upper quadrant abdominal pain with a nausea sensation poor appetite patient stated it started 3 weeks prior became more symptomatic did notify her PCP who did order a CAT scan of the abdomen with contrast. Reviewing the report appeared to be intussusception of the small bowel in the left upper quadrant. Bowel wall thickening may represent active Crohn's disease in which the patient does have a history of. The PCP review the report and advised the patient given the clinical findings on the CAT scan to come into the emergency room to be evaluated patient continues to report having left upper quadrant abdominal discomfort. Additionally patient did undergo HIDA scan on March 31 reviewing that report hyper contractive state suggested EF percent AST and ALT were not elevated urinalysis negative electrolytes within normal limits white count was 9 Currently patient continues to report having discomfort in the left upper quadrant states has Crohn's disease so has frequent loose stools abdomen currently is soft with positive tenderness in the left upper quadrant - Review of Systems Comment: Essentially unremarkable except as mentioned in the present illness Past Medical History Past Medical History: No Reported History Additional Past Medical History / Comment(s): common variable immune deficiency , crohns, History of Any Multi-Drug Resistant Organisms: None Reported Additional Past Surgical History / Comment(s): port placement and removal, port replacement B side Past Anesthesia/Blood Transfusion Reactions: No Reported Reaction Past Psychological History: Bipolar Smoking Status: Former smoker Past Alcohol Use History: None Reported Past Drug Use History: None Reported - Past Family History Mother Family Medical History: AFIB, Diabetes Mellitus, Hyperlipidemia, Hypertension, Osteoarthritis (OA) Additional Family Medical History / Comment(s): skin cancer Father Family Medical History: Cancer, Congestive Heart Failure (CHF), Coronary Artery Disease (CAD), Hypertension Additional Family Medical History / Comment(s): lung cancer Medications and Allergies Home Medications Medication Instructions Recorded Confirmed Type FLUoxetine HCL [PROzac] 40 mg PO DAILY 12/02/16 03/31/18 History Hizentra 10gm 10 gm SQ TH 03/31/18 03/31/18 History Levothyroxine Sodium 25 mcg PO DAILY 03/31/18 03/31/18 History Multivitamins, Thera [Multivitamin 1 tab PO DAILY 11/15/18 11/15/18 History (formulary)] Allergies Allergy/AdvReac Type Severity Reaction Status Date / Time codeine AdvReac Nausea & Verified 03/31/18 17:42 Vomiting morphine AdvReac Nausea & Verified 03/31/18 17:42 Vomiting Surgical - Exam Vital Signs Temp Pulse Resp BP Pulse Ox 98.2 F 92 18 116/82 97 03/31/18 17:14 03/31/18 17:14 03/31/18 17:14 03/31/18 17:14 03/31/18 17:14 Surgical exam GENERAL APPEARANCE: 37-year-old female patient is alert, oriented, in no acute distress. Reports pain medication has not been effective for pain control continues to have left upper quadrant abdominal pain VITAL SIGNS: Reviewed HEENT: Head is normocephalic and atraumatic. Pupils are equal and reactive. The nares are patent. Oropharynx is clear without lesions. NECK: Supple without lymphadenopathy. Traches midline. HEART: S1, S2. Regular rate and rhythm. Denying chest pain LUNGS: No crackles or wheezes are heard. On room air no shortness of breath ABDOMEN: Soft, tenderness left upper quadrant and left lower quadrant with positive rebound nondistended few bowel sounds. No peritoneal signs. No palpable organomegaly or masses. EXTREMITIES: Normal skin color and turgor. No cyanosis, rash, ulceration, clubbing or edema. Radial pedal pulses are 2/4 bilaterally. NEUROLOGICAL: No focal deficits. Strength and sensation are grossly intact. Results - Labs 03/31/18 18:25 03/31/18 18:25 Abnormal Lab Results - Last 24 Hours (Table) 03/31/18 Range/Units 18:25 Glucose 115 H (74-99) mg/dL Diabetes panel 03/31/18 Range/Units 18:25 Sodium 137 (137-145) mmol/L Potassium 4.4 (3.5-5.1) mmol/L Chloride 104 (98-107) mmol/L Carbon Dioxide 26 (22-30) mmol/L BUN 11 (7-17) mg/dL Creatinine 0.61 (0.52-1.04) mg/dL Glucose 115 H (74-99) mg/dL Calcium 9.5 (8.4-10.2) mg/dL AST 21 (14-36) U/L ALT 14 (9-52) U/L Alkaline Phosphatase 60 (38-126) U/L Total Protein 6.6 (6.3-8.2) g/dL Albumin 4.1 (3.5-5.0) g/dL Calcium panel 03/31/18 Range/Units 18:25 Calcium 9.5 (8.4-10.2) mg/dL Albumin 4.1 (3.5-5.0) g/dL Pituitary panel 03/31/18 Range/Units 18:25 Sodium 137 (137-145) mmol/L Potassium 4.4 (3.5-5.1) mmol/L Chloride 104 (98-107) mmol/L Carbon Dioxide 26 (22-30) mmol/L BUN 11 (7-17) mg/dL Creatinine 0.61 (0.52-1.04) mg/dL Glucose 115 H (74-99) mg/dL Calcium 9.5 (8.4-10.2) mg/dL Adrenal panel 03/31/18 Range/Units 18:25 Sodium 137 (137-145) mmol/L Potassium 4.4 (3.5-5.1) mmol/L Chloride 104 (98-107) mmol/L Carbon Dioxide 26 (22-30) mmol/L BUN 11 (7-17) mg/dL Creatinine 0.61 (0.52-1.04) mg/dL Glucose 115 H (74-99) mg/dL Calcium 9.5 (8.4-10.2) mg/dL Total Bilirubin 0.3 (0.2-1.3) mg/dL AST 21 (14-36) U/L ALT 14 (9-52) U/L Alkaline Phosphatase 60 (38-126) U/L Total Protein 6.6 (6.3-8.2) g/dL Albumin 4.1 (3.5-5.0) g/dL Assessment and Plan Assessment: Impression Present on admission left upper and lower quadrant abdominal pain suspect due to intuaausception of the small bowel in the left upper quadrant with bowel wall thickening may represent active Crohn's disease History of Crohn's disease HIDA scan showed hyper contractility EF 96% Present on admission a history of poor oral intake due to persistent nausea with dry heaves clinical dehydration Plan IV fluid bolus as ordered Pain control IV Zosyn as ordered DVT and GI prophylaxis Further surgical recommendations pending clinical course IV fluid for hydration The above impression and plan of care have been discussed and directed by signing physician. Marta Parker nurse practitioner acting as scribe for signing physician.
[2018-04-01] MEDS: IOPAMIDOL-300 CONTRAST 30 ML VIAL (ORAL USE) PO PRN ×2 (15:16→16:13)
--- NOTE | 2018-04-01 18:21 | CT ---
EXAMINATION TYPE: CT abdomen pelvis w con DATE OF EXAM: 04/01/2018 COMPARISON: Yesterday HISTORY: hx crohns/ab pain CT DLP: 1577 mGycm Automated exposure control for dose reduction was used. TECHNIQUE: Helical acquisition of images was performed from the lung bases through the pelvis. CONTRAST: Performed without Oral Contrast and with IV Contrast, patient injected with 100 mL of Isovue 300. FINDINGS: Multiple axial sections were obtained from the diaphragm to the floor the pelvis with oral and intrav enous contrast. Lung bases show some minimal subpleural nodular infiltrate posteriorly. There is no pleural effusion. There is no pericardial effusion. Liver spleen pancreas gallbladder appear normal. Bile ducts are not dilated. Gallbladder is upper hess it of normal size and measures 4.7 cm. There is no adrenal mass. Kidneys show satisfactory contrast opacification. There is no hydronephrosi s. Ureters are not dilated. There is small amount of free fluid in the pelvis. Bladder distends milagros hly. There is no inguinal hernia. There is mild small bowel mesenteric edema. There is no evidence of a bowel obstruction. Appendix emily ears normal. I see no evidence of a abscess or free air. There is borderline mild thickening of the p roximal jejunum wall. I see no sign of intussusception. IMPRESSION: THERE IS EVIDENCE OF A SMALL JEJUNAL INTUSSUSCEPTION IN THE LEFT UPPER QUADRANT ON EXAM YESTERDAY CHAIM T IS NOT PRESENT ON TODAY'S EXAM. THERE IS MILD SMALL BOWEL MESENTERIC EDEMA. THIS IS CONSISTENT WITH SOME NONSPECIFIC INFLAMMATORY PROCESS OF THE SMALL BOWEL. I SEE NO EVIDENCE OF A BOWEL OBSTRUCTION. NORMAL APPENDIX. MINIMAL THICKENING OF THE WALL OF THE PROXIMAL JEJUNUM.
[2018-04-01 23:13] LABS: Glucose,Whole Blood 75 mg/dL (75-99)
[2018-04-02] MEDS: HYDROmorphone 1 MG/ML 1 ML SYRINGE IVP PRN ×4 (03:29→13:14)
[2018-04-02] MEDS: ONDANSETRON 4 MG/2 ML VIAL IVP PRN ×2 (04:45→14:42)
[2018-04-02] MEDS: PIPERACILLIN-TAZOBACTAM 3.375 GM in SODIUM CHLORIDE 0.9% 100 ML IVPB SCH ×3 (04:45→21:44)
[2018-04-02] MEDS: PANTOPRAZOLE 40 MG/10 ML VIAL IVP SCH ×2 (07:35→21:44)
[2018-04-02 11:28] LABS: Glucose,Whole Blood 77 mg/dL (75-99)
[2018-04-02 14:13] LABS: Basophils % (A) 0 %; Eosinophils # (A) 0.1 k/uL (0-0.7); Eosinophils % (A) 2 %; HGB 11.6 gm/dL (11.4-16.0); Lymphocytes # (A) 1.3 k/uL (1.0-4.8); Lymphocytes % (A) 23 %; MCH 29.8 pg (25.0-35.0); MCHC 34.2 g/dL (31.0-37.0); MCV 87.2 fL (80.0-100.0); Mean Platelet Volume 6.8; Monocytes # (A) 0.2 k/uL (0-1.0); Monocytes % (A) 4 %; Neutrophils % (A) 69 %; Platelet Count 183 k/uL (150-450); RDW 12.3 % (11.5-15.5); WBC 5.8 k/uL (3.8-10.6)
[2018-04-02 14:28] LABS: Anion Gap 5 mmol/L; Blood Urea Nitrogen 8 mg/dL (7-17); Calcium 8.7 mg/dL (8.4-10.2); Carbon Dioxide 25 mmol/L (22-30); Chloride 108 mmol/L (98-107); Glucose 77 mg/dL (74-99); Potassium 4.1 mmol/L (3.5-5.1); Sodium 138 mmol/L (137-145)
[2018-04-02] MEDS: SODIUM CHLORIDE 0.9% 1,000 ML IV SCH ×2 (15:38→21:45)
[2018-04-02] MEDS ORDERED: ACETAMINOPHEN TAB 325 MG TAB PO PRN (17:01)
[2018-04-02] MEDS ORDERED: MD COMMUNICATION TO PHARMACY 1 EACH MISC PO PRN (17:03)
--- NOTE | 2018-04-02 17:13 | P.PN ---
Subjective Progress Note Date: 04/02/18 CHIEF COMPLAINT: Intussusception HISTORY OF PRESENT ILLNESS: The patient is a 37-year-old female who reports severe epigastric including periumbilical abdominal pain. She was admitted yesterday after developing intussusception as identified on computed tomography scan. She reports chronic illness over 3 weeks where she had underlying gallbladder disorder. She has history of common variable immune deficiency where all of her care is at [facility]. She reports as a result of an abnormal computed tomography scan at [facility], she was advised to go to the emergency room immediately for an abnormal finding. She is overall discontent with her hospital care. 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 She reports hunger. She is thirsty. She is concerned about her immunodeficiency as she receives regular IV therapy and treatment at [facility]. Her family is at bedside. PHYSICAL EXAM: GENERAL: Well-developed in mild distress. HEENT: No sclera icterus. Extraocular movements grossly intact. Moist buccal mucosa. Head is atraumatic, normocephalic. Hears conversational speech. No nasal drainage. NECK: Supple without lymphadenopathy. CHEST: Non-labored respirations and equal bilateral excursions. CARDIOVASCULAR: Regular rate with regular rhythm. ABDOMEN: Obese, soft, mild distention. Moderate tenderness along the epigastrium and left lower quadrant. MUSCULOSKELETAL: No clubbing, cyanosis or edema. NEUROLOGIC: No focal or lateralizing signs. Cranial nerves II through XII grossly intact. PSYCH: Alert and oriented to person, place and time. SKIN: Well perfused. Good skin turgor. LABS: Reviewed ASSESSMENT: 1. Intussusception 2. Immunodeficiency 3. Gallbladder disorder PLAN: 1. For further concerns of her immunodeficiency, infectious disease consultation is obtained for management. 2. IV fluid hydration. 3. Results of her repeat computed tomography scan demonstrates resolution of intussusception however with bowel edema 4. May start liquid diet. 5. For the severity of her abdominal pain, recommend continued hospitalization. 6. Adjustment of pain medications from Dilaudid to anti-inflammatories advised Objective - Vital Signs Vital signs: Vital Signs Temp 98 F 04/02/18 14:19 Pulse 57 L 04/02/18 14:19 Resp 16 04/02/18 14:19 BP 113/67 04/02/18 14:19 Pulse Ox 97 04/02/18 14:19 Intake & Output 04/01/18 04/02/18 04/02/18 18:59 06:59 18:59 Intake Total 1125 1600 Balance 1125 1600 Intake: Intake, IV Titration 1125 1100 Amount Piperacillin-Tazobactam 3 100 .375 gm In Sodium Chloride 0.9% 100 ml @ 25 mls/hr IVPB Q8H [facility] Rx#: [id number] Sodium Chloride 0.9% 1, 1125 1000 000 ml @ 125 mls/hr IV . Q8H [facility] Rx#:[id number] Oral 500 Other: Voiding Method Toilet # Voids 1 1 - Labs CBC & Chem 7: 04/02/18 13:59 04/02/18 13:59 Labs: Abnormal Lab Results - Last 24 Hours (Table) 04/02/18 Range/Units 13:59 Chloride 108 H (98-107) mmol/L Microbiology - Last 24 Hours (Table) 03/31/18 19:00 Blood Culture - Preliminary Blood No Growth after 24 hours - Imaging and Cardiology CT scan - abdomen: report reviewed, image reviewed CT scan - pelvis: report reviewed, image reviewed (No evidence of free air or pneumoperitoneum or free fluid. Intussusception resolved ) Assessment and Plan (1) Gallbladder disorder Current Visit: Yes Status: Acute Code(s): K82.9 - DISEASE OF GALLBLADDER, UNSPECIFIED SNOMED Code(s): 37744468 (2) Common variable immunodeficiency Current Visit: Yes Status: Acute Code(s): D83.9 - COMMON VARIABLE IMMUNODEFICIENCY, UNSPECIFIED SNOMED Code(s): 46827913 (3) Morbid obesity due to excess calories Current Visit: Yes Status: Acute Code(s): E66.01 - MORBID (SEVERE) OBESITY DUE TO EXCESS CALORIES SNOMED Code(s): 585853648 (4) BMI 35.0-35.9,adult Current Visit: Yes Status: Acute Code(s): Z68.35 - BODY MASS INDEX (BMI) 35.0-35.9, ADULT SNOMED Code(s): 558235041 (5) Intussusception Current Visit: Yes Status: Acute Code(s): K56.1 - INTUSSUSCEPTION SNOMED Code(s): 62875983 (6) Depressive disorder Current Visit: Yes Status: Acute Code(s): F32.9 - MAJOR DEPRESSIVE DISORDER , SINGLE EPISODE, UNSPECIFIED SNOMED Code(s): 92139740 (7) Hypothyroidism Current Visit: Yes Status: Acute Code(s): E03.9 - HYPOTHYROIDISM, UNSPECIFIED SNOMED Code(s): 69119241
[2018-04-02] MEDS: DEXAMETHASONE SOD PHOSPHATE 10 MG/ML 1 ML VIAL IV SCH ×2 (17:40→23:32)
[2018-04-02] MEDS: KETOROLAC 30 MG/ML 1 ML VIAL IVP SCH ×2 (17:41→23:32)
[2018-04-02] MEDS: ACETAMINOPHEN TAB 325 MG TAB PO SCH ×3 (17:41→23:32)
--- NOTE | 2018-04-02 22:50 | P.CONS ---
History of Present Illness - Reason for Consult Consult date: 04/02/18 - Chief Complaint Abdominal pain - History of Present Illness 57-year-old female presents to Hospital from home with a several week history of progressive abdominal pain and not feeling well overall. She is extremely complex past medical history is also positive for common variable immune deficiency and follows with immunology at [facility]. She receives subcutaneous in a globulin biweekly basis. She relates that she's been on this therapy there is no improvement of her status and is not having as many infections as she used to. 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 Does have a history of Crohn's disease and has been somewhat quiet as of late until the significant onset of her worsening abdominal pain and in the absence of nausea and emesis. His as occurred she stopped having her frequent loose stools but had increasing abdominal pain. Imaging studies were performed revealing evidence of the intersusseption which is now improving bilateral follow-up computed tomography scan. Infectious diseases consultation regarding plan of her immunoglobulin therapy. Review of Systems Patient feeling better but still has abdominal pain, denies fevers or chills. Was having chills at admission HEENT:Denies headache or acute visual change. Denies sinus or mouth discomforts. Denies neck stiffness or pain. Denies significant oral cavity pain. Denies difficulty on swallowing. Lungs: Denies significant shortness of breath, cough, sputum production, or hemoptysis. Cardiovascular: Denies significant shortness of breath, chest pain, chest wall pain, orthopnea, dyspnea on exertion, syncope Gastrointestinal: Admission had nausea with emesis does have ongoing abdominal pain. Stools are not occurring at this time with the acute abdominal process. No hematemesis melena or hematochezia have occurred. Musculoskeletal: denies significant myalgias or arthralgias. No new joint swelling. Denies new back pain. Skin: Denies new rash or lesions. No new ulcers or wounds are related.. Neuro: Denies headache or visual change. Denies any new onset weakness or difficulty with ambulation. Denies falls or seizures. Psychiatric:Denies anxiety or depression. Endocrine: Chronic fatigue weight fluctuates Past Medical History Past Medical History: No Reported History Additional Past Medical History / Comment(s): common variable immune deficiency , crohns, History of Any Multi-Drug Resistant Organisms: None Reported Additional Past Surgical History / Comment(s): port placement and removal, port replacement B side Past Anesthesia/Blood Transfusion Reactions: No Reported Reaction Past Psychological History: Bipolar Additional Psychological History / Comment(s): . Disabled. History of tobacco use. No experience. No recent international travel. Stepchild present on a visiting basis. No animals related in the home Smoking Status: Former smoker Past Alcohol Use History: None Reported Past Drug Use History: None Reported - Past Family History Mother Family Medical History: AFIB, Diabetes Mellitus, Hyperlipidemia, Hypertension, Osteoarthritis (OA) Additional Family Medical History / Comment(s): skin cancer Father Family Medical History: Cancer, Congestive Heart Failure (CHF), Coronary Artery Disease (CAD), Hypertension Additional Family Medical History / Comment(s): lung cancer Medications and Allergies Home Medications and Allergies Comment(s): Current Medications Acetaminophen (Tylenol Tab) 650 mg PO Q6HR [facility] Last Admin: 04/02/18 18:38 Dose: 650 mg Dexamethasone Sodium Phosphate (Decadron) 4 mg IV Q6HR [facility] Last Admin: 04/02/18 17:40 Dose: 4 mg Fluoxetine HCl (Prozac) 40 mg PO DAILY [facility] Hydromorphone HCl (Dilaudid) 0.5 mg IVP Q4H PRN PRN Reason: Moderate Pain Last Admin: 04/01/18 08:31 Dose: 0.5 mg Hydromorphone HCl (Dilaudid) 1 mg IVP Q2H PRN PRN Reason: Severe Pain Last Admin: 04/02/18 13:14 Dose: 1 mg Piperacillin Sod/Tazobactam (Sod 3.375 gm/ Sodium Chloride) 100 mls @ 25 mls/ hr IVPB Q8H [facility] Last Admin: 04/02/18 21:44 Dose: 25 mls/hr Sodium Chloride (Saline 0.9%) 1,000 mls @ 125 mls/hr IV .Q8H [facility] Last Admin: 04/02/18 21:45 Dose: 125 mls/hr Ketorolac Tromethamine (Toradol) 30 mg IVP Q6HR [facility] Stop: 04/07/18 18:01 Last Admin: 04/02/18 17:41 Dose: 30 mg Levothyroxine Sodium (Synthroid) 25 mcg PO DAILY@0630 [facility] Naloxone HCl (Narcan) 0.2 mg IV Q2M PRN PRN Reason: Opioid Reversal Non-Formulary Medication (Hizentra 10gm) 10 gm SQ TH [facility] Ondansetron HCl (Zofran) 4 mg IVP Q8HR PRN PRN Reason: Nausea And Vomiting Last Admin: 04/02/18 14:42 Dose: 4 mg Pantoprazole Sodium (Protonix) 40 mg IVP BID [facility] Last Admin: 04/02/18 21:44 Dose: 40 mg Home Medications Medication Instructions Recorded Confirmed Type FLUoxetine HCL [PROzac] 40 mg PO DAILY 12/02/16 03/31/18 History Hizentra 10gm 10 gm SQ TH 03/31/18 03/31/18 History Levothyroxine Sodium 25 mcg PO DAILY 03/31/18 03/31/18 History Multivitamins, Thera [Multivitamin 1 tab PO DAILY 03/31/18 03/31/18 History (formulary)] Allergies Allergy/AdvReac Type Severity Reaction Status Date / Time codeine AdvReac Nausea & Verified 03/31/18 17:42 Vomiting morphine AdvReac Nausea & Verified 03/31/18 17:42 Vomiting Physical Exam Vitals: Vital Signs Temp Pulse Pulse Resp BP Pulse Ox 04/02/18 14:19 98 F 57 L 16 113/67 97 04/02/18 07:00 98.3 F 68 16 106/68 94 L 04/02/18 01:13 98.0 F 94 72 16 123/75 Intake and Output 04/02/18 04/02/18 04/02/18 06:59 14:59 22:59 Intake Total 750 1600 Balance 750 1600 Intake: Intake, IV Titration 750 1100 Amount Piperacillin-Tazobactam 3 100 .375 gm In Sodium Chloride 0.9% 100 ml @ 25 mls/hr IVPB Q8H [facility] Rx#: [id number] Sodium Chloride 0.9% 1, 750 1000 000 ml @ 125 mls/hr IV . Q8H [facility] Rx#:[id number] Oral 500 Other: # Voids 1 37-year-old woman who suffers from obesity and appears somewhat chronically ill HEENT: Anicteric conjunctiva are pink and moist nasal mucosa grossly intact without significant lesions, there is no thrush. Neck: The neck is supple without significant lymphadenopathy or thyromegaly. Lungs: Symmetrical air entry is noted. Expiratory wheezes are heard. No bronchial sounds with dullness or egophony Heart: Regular rate and rhythm with an audible S1-S2, no S3 no S4. There is no significant murmur click or rub, PMI was nondisplaced. Abdomen: Mildly distended. Diffuse tenderness is noted but is most severe in the left lower quadrant. There is no guarding or rebound. No palpable organomegaly is noted. Extremities: The upper extremities have excellent pulses they are symmetric, no significant petechiae or telangiectasia. No splinter hemorrhages were noted. Lower extremities reveal evidence of the bilateral lower extremity edema there is also edema of her hands. No open ulcerations are seen Neuro: Awake alert oriented to person place and time. There are no acute new gross focal sensory motor deficits. Patient has difficulties with chronic anxiety. Results CBC & Chem 7: 04/02/18 13:59 04/02/18 13:59 Labs: Abnormal Lab Results - Last 24 Hours (Table) 04/02/18 Range/Units 13:59 Chloride 108 H (98-107) mmol/L Microbiology - Last 24 Hours (Table) 03/31/18 19:00 Blood Culture - Preliminary Blood No Growth after 48 hours Laboratory Results WBC 5.8 k/uL (3.8-10.6) 04/02/18 13:59 RBC 3.90 m/uL (3.80-5.40) 04/02/18 13:59 Hgb 11.6 gm/dL (11.4-16.0) 04/02/18 13:59 Hct 34.0 % (34.0-46.0) 04/02/18 13:59 MCV 87.2 fL (80.0-100.0) 04/02/18 13:59 MCH 29.8 pg (25.0-35.0) 04/02/18 13:59 MCHC 34.2 g/dL (31.0-37.0) 04/02/18 13:59 RDW 12.3 % (11.5-15.5) 04/02/18 13:59 Plt Count 183 k/uL (150-450) 04/02/18 13:59 Neutrophils % 69 % 04/02/18 13:59 Lymphocytes % 23 % 04/02/18 13:59 Monocytes % 4 % 04/02/18 13:59 Eosinophils % 2 % 04/02/18 13:59 Basophils % 0 % 04/02/18 13:59 Neutrophils # 4.0 k/uL (1.3-7.7) 04/02/18 13:59 Lymphocytes # 1.3 k/uL (1.0-4.8) 04/02/18 13:59 Monocytes # 0.2 k/uL (0-1.0) 04/02/18 13:59 Eosinophils # 0.1 k/uL (0-0.7) 04/02/18 13:59 Basophils # 0.0 k/uL (0-0.2) 04/02/18 13:59 Sodium 138 mmol/L (137-145) 04/02/18 13:59 Potassium 4.1 mmol/L (3.5-5.1) 04/02/18 13:59 Chloride 108 mmol/L (98-107) H 04/02/18 13:59 Carbon Dioxide 25 mmol/L (22-30) 04/02/18 13:59 Anion Gap 5 mmol/L 04/02/18 13:59 BUN 8 mg/dL (7-17) 04/02/18 13:59 Creatinine 0.69 mg/dL (0.52-1.04) 04/02/18 13:59 Est GFR (CKD-EPI)AfAm >90 (>60 ml/min/1.73 sqM) 04/02/18 13:59 Est GFR (CKD-EPI)NonAf >90 (>60 ml/min/1.73 sqM) 04/02/18 13:59 Glucose 77 mg/dL (74-99) 04/02/18 13:59 POC Glucose (mg/dL) 77 mg/dL (75-99) 04/02/18 11:16 POC Glu Shot Peen Operator ID 04/02/18 11:16 Plasma Lactic Acid Keith 1.4 mmol/L (0.7-2.0) 03/31/18 18:25 Calcium 8.7 mg/dL (8.4-10.2) 04/02/18 13:59 Total Bilirubin 0.3 mg/dL (0.2-1.3) 03/31/18 18:25 AST 21 U/L (14-36) 03/31/18 18:25 ALT 14 U/L (9-52) 03/31/18 18: Alkaline Phosphatase 60 U/L (38-126) 03/31/18 18: Total Protein 6.6 g/dL (6.3-8.2) 03/31/18 18: Albumin 4.1 g/dL (3.5-5.0) 03/31/18: Urine Color Colorless 03/31/18: Urine Appearance Clear (Clear) 03/31/18: Urine pH 6.5 (5.0-8.0) 03/31/18 18: Ur Specific [place] 1.006 (1.001-1.035) 03/31/18 18: Urine Protein Negative (Negative) 03/31/18: Urine Glucose (UA) Negative (Negative) 03/31/18 Urine Ketones Negative (Negative) 03/31/18 Urine Blood Negative (Negative) 03/31/18: Urine Nitrite Negative (Negative) 03/31/18: Urine Bilirubin Negative (Negative) 03/31/18: Urine Urobilinogen <2.0 mg/dL (<2.0) 03/31/18: Ur Leukocyte Esterase Negative (Negative) 03/31/18: Urine HCG, Qual Not Detected (Not Detectd) 03/31/18: Microbiology 03/31/18 19:00 Blood Blood Culture - Preliminary No Growth after 48 hours Assessment and Plan (1) Common variable immunodeficiency Narrative/Plan: 37-year-old female who has multiple medical troubles including Crohn' s disease and common variable immunodeficiency presents to Hospital with a several week history of progressive abdominal symptoms. Eventually her abdominal pain increases she's having nausea and emesis in counseling presents to hospital with evidence of dehydration and worsening abdominal pain. Computed tomography scan performed shows evidence of the introsusception and she 's been on bowel rest and is showing marked improvement. Follow-up computed tomography scan shows evidence of resolution of the acute difficulty and cath which she's been allowed to . Anti-inflammatories will be added to help with the swelling of the bowel into improve her symptoms. Nausea control as per the general surgeon. She has been initiated antibiotic therapy with Zosyn which is appropriate this point in time pending any culture results. The patient utilizes subcutaneous immunoglobulin on a weekly basis. Her will bring in the medication from home. Pharmacy will verify it. She will bring her kit for the infusion of the 3 sites. And hopefuuly this can be given tomorrow. Current Visit: Yes Status: Acute Code(s): D83.9 - COMMON VARIABLE IMMUNODEFICIENCY, UNSPECIFIED SNOMED Code(s): 45180119 (2) Obesity (BMI 30.0-34.9) Current Visit: Yes Status: Acute Code(s): E66.9 - OBESITY, UNSPECIFIED SNOMED Code(s): 157482391723245 (3) Intussusception Current Visit: Yes Status: Acute Code(s): K56.1 - INTUSSUSCEPTION SNOMED Code(s): 29952402
[2018-04-03] MEDS: ACETAMINOPHEN TAB 325 MG TAB PO SCH ×4 (05:55→23:21)
[2018-04-03] MEDS: PIPERACILLIN-TAZOBACTAM 3.375 GM in SODIUM CHLORIDE 0.9% 100 ML IVPB SCH ×3 (05:55→20:48)
[2018-04-03] MEDS: LEVOTHYROXINE 25 MCG TAB PO SCH (05:55)
[2018-04-03] MEDS: DEXAMETHASONE SOD PHOSPHATE 10 MG/ML 1 ML VIAL IV SCH ×4 (05:57→23:22)
[2018-04-03] MEDS: KETOROLAC 30 MG/ML 1 ML VIAL IVP SCH ×4 (05:57→23:22)
[2018-04-03] MEDS: PANTOPRAZOLE 40 MG/10 ML VIAL IVP SCH ×2 (09:00→20:45)
[2018-04-03] MEDS: FLUoxetine HCL 20 MG CAP PO SCH (09:00)
[2018-04-03] MEDS: HYDROmorphone 1 MG/ML 1 ML SYRINGE IVP PRN ×4 (09:57→20:46)
--- NOTE | 2018-04-03 13:35 | P.PN ---
Subjective Progress Note Date: 04/03/18 CHIEF COMPLAINT: Intussusception HISTORY OF PRESENT ILLNESS: The patient is a 37-year-old female who reports severe epigastric including periumbilical abdominal pain at the time of her admission. She was admitted for intussusception as identified on computed tomography scan. She reports chronic illness over 3 weeks where she has underlying gallbladder disorder. She has history of common variable immune deficiency where all of her care is at [facility]. Yesterday she had moderate generalized pain including multiple complaints. Consultation to infectious disease with Dr. Jackson was obtained. Her medications including for her chronic immunodeficiency was reviewed and resumed. She is feeling much better today. Her pain is better controlled with regards to the abdomen. "I feel so much better." She is tolerating diet. She still reports chronic gallbladder symptoms which is pre-existing prior to admission. PHYSICAL EXAM: GENERAL: Well-developed in no acute distress HEENT: No sclera icterus. Extraocular movements grossly intact. Moist buccal mucosa. Head is atraumatic, normocephalic. Hears conversational speech. No nasal drainage. NECK: Supple without lymphadenopathy. CHEST: Non-labored respirations and equal bilateral excursions. CARDIOVASCULAR: Regular rate with regular rhythm. ABDOMEN: Obese, soft, no peritonitis. Minimal epigastric tenderness. Abdominal tenderness moderately improved from yesterday. MUSCULOSKELETAL: No clubbing, cyanosis or edema. NEUROLOGIC: No focal or lateralizing signs. Cranial nerves II through XII grossly intact. PSYCH: Alert and oriented to person, place and time. SKIN: Well perfused. Good skin turgor. LABS: Reviewed ASSESSMENT: 1. Intussusception 2. Immunodeficiency 3. Gallbladder disorder PLAN: 1. Clinically she is doing much better. 2. IV infusions for her common variable immune deficiency 3. No surgical intervention needed for intussusception 4. Continue IV fluid hydration 5. Continue liquid diet Objective - Vital Signs Vital signs: Vital Signs Temp 98.3 F 04/03/18 00:48 Pulse 67 04/03/18 07:00 Resp 20 04/03/18 07:00 BP 112/70 04/03/18 07:00 Pulse Ox 99 04/03/18 07:00 Intake & Output 04/02/18 04/03/18 04/03/18 18:59 06:59 18:59 Intake Total 1600 2820 650 Balance 1600 2820 650 Intake: Intake, IV Titration 1100 1300 Amount Piperacillin-Tazobactam 3 100 100 .375 gm In Sodium Chloride 0.9% 100 ml @ 25 mls/hr IVPB Q8H [facility] Rx#: [id number] Sodium Chloride 0.9% 1, 1000 1200 000 ml @ 125 mls/hr IV . Q8H [facility] Rx#:[id number] Oral 500 1520 650 Other: Voiding Method Toilet # Voids 1 2 - Labs CBC & Chem 7: 04/02/18 13:59 04/02/18 13:59 Labs: Abnormal Lab Results - Last 24 Hours (Table) 04/02/18 Range/Units 13:59 Chloride 108 H (98-107) mmol/L Microbiology - Last 24 Hours (Table) 03/31/18 19:00 Blood Culture - Preliminary Blood No Growth after 48 hours - Imaging and Cardiology CT scan - abdomen: report reviewed, image reviewed CT scan - pelvis: report reviewed, image reviewed (Result intussusception with bowel edema) Assessment and Plan (1) Gallbladder disorder Current Visit: Yes Status: Acute Code(s): K82.9 - DISEASE OF GALLBLADDER, UNSPECIFIED SNOMED Code(s): 61125950 (2) Common variable immunodeficiency Current Visit: Yes Status: Acute Code(s): D83.9 - COMMON VARIABLE IMMUNODEFICIENCY, UNSPECIFIED SNOMED Code(s): 16192769 (3) Morbid obesity due to excess calories Current Visit: Yes Status: Acute Code(s): E66.01 - MORBID (SEVERE) OBESITY DUE TO EXCESS CALORIES SNOMED Code(s): 827056674 (4) BMI 35.0-35.9,adult Current Visit: Yes Status: Acute Code(s): Z68.35 - BODY MASS INDEX (BMI) 35.0-35.9, ADULT SNOMED Code(s): 111087862 (5) Intussusception Current Visit: Yes Status: Acute Code(s): K56.1 - INTUSSUSCEPTION SNOMED Code(s): 75559967 (6) Depressive disorder Current Visit: Yes Status: Acute Code(s): F32.9 - MAJOR DEPRESSIVE DISORDER , SINGLE EPISODE, UNSPECIFIED SNOMED Code(s): 06931438 (7) Hypothyroidism Current Visit: Yes Status: Acute Code(s): E03.9 - HYPOTHYROIDISM, UNSPECIFIED SNOMED Code(s): 41106245
--- NOTE | 2018-04-03 13:36 | P.PN ---
Subjective Progress Note Date: 04/03/18 57-year-old female presents to Hospital from home with a several week history of progressive abdominal pain and not feeling well overall. She is extremely complex past medical history is also positive for common variable immune deficiency and follows with immunology at [facility]. She receives subcutaneous in a globulin biweekly basis. She relates that she's been on this therapy there is no improvement of her status and is not having as many infections as she used to. 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 Does have a history of Crohn's disease and has been somewhat quiet as of late until the significant onset of her worsening abdominal pain and in the absence of nausea and emesis. His as occurred she stopped having her frequent loose stools but had increasing abdominal pain. Imaging studies were performed revealing evidence of the intersusseption which is now improving bilateral follow-up computed tomography scan. Infectious diseases consultation regarding plan of her immunoglobulin therapy. 04/03/2018 patient is feeling somewhat better today. Abdominal pain has improved is not localized just to the left upper quadrant lateral area. She is tolerating clear liquids without difficulty. Objective - Vital Signs Vital signs: Vital Signs Temp 98.3 F 04/03/18 00:48 Pulse 67 04/03/18 07:00 Resp 20 04/03/18 07:00 BP 112/70 04/03/18 07:00 Pulse Ox 99 04/03/18 07:00 Intake & Output 04/02/18 04/03/18 04/03/18 18:59 06:59 18:59 Intake Total 1600 2820 650 Balance 1600 2820 650 Intake: Intake, IV Titration 1100 1300 Amount Piperacillin-Tazobactam 3 100 100 .375 gm In Sodium Chloride 0.9% 100 ml @ 25 mls/hr IVPB Q8H [facility] Rx#: [id number] Sodium Chloride 0.9% 1, 1000 1200 000 ml @ 125 mls/hr IV . Q8H [facility] Rx#:[id number] Oral 500 1520 650 Other: Voiding Method Toilet # Voids 1 2 - Exam 37-year-old woman who suffers from obesity and appears somewhat chronically ill HEENT: Anicteric conjunctiva are pink and moist nasal mucosa grossly intact without significant lesions, there is no thrush. Neck: The neck is supple without significant lymphadenopathy or thyromegaly. Lungs: Symmetrical air entry is noted. Expiratory wheezes are heard. No bronchial sounds with dullness or egophony Heart: Regular rate and rhythm with an audible S1-S2, no S3 no S4. There is no significant murmur click or rub, PMI was nondisplaced. Abdomen: Mildly distended. Abdominal tenderness is improved is now localized to just the left lateral upper quadrant. There is no guarding or rebound. No palpable organomegaly is noted. Extremities: The upper extremities have excellent pulses they are symmetric, no significant petechiae or telangiectasia. No splinter hemorrhages were noted. Lower extremities reveal evidence of the bilateral lower extremity edema there is also edema of her hands. No open ulcerations are seen Neuro: Awake alert oriented to person place and time. There are no acute new gross focal sensory motor deficits. Patient has difficulties with chronic anxiety. - Labs CBC & Chem 7: 04/02/18 13:59 04/02/18 13:59 Labs: Abnormal Lab Results - Last 24 Hours (Table) 04/02/18 Range/Units 13:59 Chloride 108 H (98-107) mmol/L Microbiology - Last 24 Hours (Table) 03/31/18 19:00 Blood Culture - Preliminary Blood No Growth after 48 hours Laboratory Results WBC 5.8 k/uL (3.8-10.6) 04/02/18 13:59 RBC 3.90 m/uL (3.80-5.40) 04/02/18 13:59 Hgb 11.6 gm/dL (11.4-16.0) 04/02/18 13:59 Hct 34.0 % (34.0-46.0) 04/02/18 13:59 MCV 87.2 fL (80.0-100.0) 04/02/18 13:59 MCH 29.8 pg (25.0-35.0) 04/02/18 13:59 MCHC 34.2 g/dL (31.0-37.0) 04/02/18 13:59 RDW 12.3 % (11.5-15.5) 04/02/18 13:59 Plt Count 183 k/uL (150-450) 04/02/18 13:59 Neutrophils % 69 % 04/02/18 13:59 Lymphocytes % 23 % 04/02/18 13:59 Monocytes % 4 % 04/02/18 13:59 Eosinophils % 2 % 04/02/18 13:59 Basophils % 0 % 04/02/18 13:59 Neutrophils # 4.0 k/uL (1.3-7.7) 04/02/18 13:59 Lymphocytes # 1.3 k/uL (1.0-4.8) 04/02/18 13:59 Monocytes # 0.2 k/uL (0-1.0) 04/02/18 13:59 Eosinophils # 0.1 k/uL (0-0.7) 04/02/18 13:59 Basophils # 0.0 k/uL (0-0.2) 04/02/18 13:59 Sodium 138 mmol/L (137-145) 04/02/18 13:59 Potassium 4.1 mmol/L (3.5-5.1) 04/02/18 13:59 Chloride 108 mmol/L (98-107) H 04/02/18 13:59 Carbon Dioxide 25 mmol/L (22-30) 04/02/18 13:59 Anion Gap 5 mmol/L 04/02/18 13:59 BUN 8 mg/dL (7-17) 04/02/18 13:59 Creatinine 0.69 mg/dL (0.52-1.04) 04/02/18 13:59 Est GFR (CKD-EPI)AfAm >90 (>60 ml/min/1.73 sqM) 04/02/18 13:59 Est GFR (CKD-EPI)NonAf >90 (>60 ml/min/1.73 sqM) 04/02/18 13:59 Glucose 77 mg/dL (74-99) 04/02/18 13:59 POC Glucose (mg/dL) 77 mg/dL (75-99) 04/02/18 11:16 POC Glu Health Care Manager ID 04/02/18 11:16 Plasma Lactic Acid Keith 1.4 mmol/L (0.7-2.0) 03/31/18 18:25 Calcium 8.7 mg/dL (8.4-10.2) 04/02/18 13:59 Total Bilirubin 0.3 mg/dL (0.2-1.3) 03/31/18 18:25 AST 21 U/L (14-36) 03/31/18 18:25 ALT 14 U/L (9-52) 03/31/18 18:25 Alkaline Phosphatase 60 U/L (38-126) 03/31/18 18: Total Protein 6.6 g/dL (6.3-8.2) 03/31/18 18: Albumin 4.1 g/dL (3.5-5.0) 03/31/18 18: Urine Color Colorless 03/31/18: Urine Appearance Clear (Clear) 03/31/18: Urine pH 6.5 (5.0-8.0) 03/31/18: Ur Specific [place] 1.006 (1.001-1.035) 03/31/18: Urine Protein Negative (Negative) 03/31/18 Urine Glucose (UA) Negative (Negative) 03/31/18 Urine Ketones Negative (Negative) 03/31/18: Urine Blood Negative (Negative) 03/31/18 Urine Nitrite Negative (Negative) 03/31/18 Urine Bilirubin Negative (Negative) 03/31/18: Urine Urobilinogen <2.0 mg/dL (<2.0) 03/31/18 18: Ur Leukocyte Esterase Negative (Negative) 03/31/18 Urine HCG, Qual Not Detected (Not Detectd) 03/31/18: Microbiology 03/31/18 19:00 Blood Blood Culture - Preliminary No Growth after 48 hours Assessment and Plan (1) Common variable immunodeficiency Narrative/Plan: 37-year-old female who has multiple medical troubles including Crohn' s disease and common variable immunodeficiency presents to Hospital with a several week history of progressive abdominal symptoms. Eventually her abdominal pain increases she's having nausea and emesis in counseling presents to hospital with evidence of dehydration and worsening abdominal pain. Computed tomography scan performed shows evidence of the introsusception and she 's been on bowel rest and is showing marked improvement. Follow-up computed tomography scan shows evidence of resolution of the acute intersusepction. Anti -inflammatories will be added to help with the swelling of the bowel into improve her symptoms. Nausea control as per the general surgeon. She has been initiated antibiotic therapy with Zosyn which is appropriate this point in time pending any culture results. The patient utilizes subcutaneous immunoglobulin on a weekly basis. Her will bring in the medication from home. Pharmacy will verify it. She will bring her kit for the infusion of the 3 sites. And hopefuuly this can be given tomorrow. 04/03/2018 patient is improving today. The patient's is bringing her subcutaneous immunoglobulin in which there are still some the pharmacy so was verified and then they can be given through the 3 injection sites per her protocol. Her nausea is definitely improved. She has no other new acute complaints. Current Visit: Yes Status: Acute Code(s): D83.9 - COMMON VARIABLE IMMUNODEFICIENCY, UNSPECIFIED SNOMED Code(s): 51134649 (2) Obesity (BMI 30.0-34.9) Current Visit: Yes Status: Acute Code(s): E66.9 - OBESITY, UNSPECIFIED SNOMED Code(s): 288948878961835 (3) Intussusception Current Visit: Yes Status: Acute Code(s): K56.1 - INTUSSUSCEPTION SNOMED Code(s): 87869914
[2018-04-03] MEDS: SODIUM CHLORIDE 0.9% 1,000 ML IV SCH ×3 (14:17→20:52)
[2018-04-03] MEDS ORDERED: HIZENTRA SQ SCH (15:00)
[2018-04-03] MEDS: ONDANSETRON 4 MG/2 ML VIAL IVP PRN (20:46)
--- NOTE | 2018-04-04 00:54 | P.PN ---
Subjective Progress Note Date: 04/02/18 Principal diagnosis: Intussusception resolved now Patient is a 37-year-old female with a PMH of variable immunodeficiency, Crohn' s disease, hypothyroidism and bipolar disorder presents to the emergency department for a chief complaint of upper abdominal pain 3.5 weeks. Patient states she was evaluated by her primary care physician who ordered a CAT scan and gallbladder study. Patient states she got a call from her primary care provider who told her to present to the emergency department immediately. Patient states she is having loose bowel movements which is normal for her as she has Crohn's disease. Patient is not on any maintenance medications for Crohn's disease. Patient did have prior exacerbation and was given steroids. Patient does take immunoglobulins subcutaneously every week at home. She denies noticing any blood in the stool. Patient admits to nausea but denies vomiting. She states she is passing gas. She states she is eating and drinking without difficulty. Patient has no other complaints at this time including shortness of breath, chest pain, headache, or visual changes. Hepatobiliary scan showed hypercontractile state suggested. CT of the abdominal pelvis showed a paced to be intussusception of small bowel in the left upper quadrant. Bowel wall thickening may represent active Crohn's disease or enteritis. There is adjacent mesenteric edema. Findings compatible with small bowel intussusception and surrounding edema. Mrs. enteritis are pancolitis in the differential diagnosis. No leukocytosis. Lites within normal limits. 04/02/2018 Patient says that her abdominal pain is better. Repeat CT abdomen pelvis showed resolved intussusception. A maher was started on clear liquid diet and advance as tolerated. Otherwise patient is being continued on antibiotics in the form of Zosyn for enteritis. ID is following. Next line current medications reviewed. Objective - Vital Signs Vital signs: Vital Signs Temp 98 F 04/02/18 14:19 Pulse 57 L 04/02/18 14:19 Resp 16 04/02/18 14:19 BP 113/67 04/02/18 14:19 Pulse Ox 97 04/02/18 14:19 Intake & Output 04/01/18 04/02/18 04/02/18 18:59 06:59 18:59 Intake Total 1125 1600 Balance 1125 1600 Intake: Intake, IV Titration 1125 1100 Amount Piperacillin-Tazobactam 3 100 .375 gm In Sodium Chloride 0.9% 100 ml @ 25 mls/hr IVPB Q8H [facility] Rx#: [id number] Sodium Chloride 0.9% 1, 1125 1000 000 ml @ 125 mls/hr IV . Q8H [facility] Rx#:[id number] Oral 500 Other: Voiding Method Toilet # Voids 1 1 - Exam PHYSICAL EXAMINATION: Patient is lying in the bed comfortably, no acute distress, awake alert and oriented.. HEENT: Normocephalic. Neck is supple. Pupils reactive. Nostrils clear. Oral cavity is moist. Ears reveal no drainage. Neck reveals no JVD, carotid bruits, or thyromegaly. CHEST EXAMINATION: Trachea is central. Symmetrical expansion. Lung romero clear to auscultation and percussion. CARDIAC: Normal S1, S2 with no gallops. No murmurs ABDOMEN: Soft. Bowel sounds normal. No organomegaly. No abdominal bruits. Extremities: reveal no edema. No clubbing or cyanosis Neurologically awake, alert, oriented x3 with well-coordinated movements. No focal deficits noted Skin: No rash or skin lesions. Psychiatric: Coperative. Nonsuicidal Musculoskeletal: No joint swelling or deformity. Normal range of motion. - Labs CBC & Chem 7: 04/02/18 13:59 04/02/18 13:59 Labs: Abnormal Lab Results - Last 24 Hours (Table) 04/02/18 Range/Units 13:59 Chloride 108 H (98-107) mmol/L Microbiology - Last 24 Hours (Table) 03/31/18 19:00 Blood Culture - Preliminary Blood No Growth after 24 hours Assessment and Plan Assessment: Left upper small bowel intussusception. Resolved Possible enteritis versus acute Crohn's disease exacerbation Crohn's disease Hypothyroidism Common Variable immunodeficiency Obesity DVT prophylaxis Plan: Patient will be started on clear liquid diet and advance as tolerated.. Continue with IV fluids and symptomatic management for pain and nausea. Continue with empiric antibiotics. IV immunoglobulin subcutaneous weekly. Continue the current management. Will follow closely and further recommendations based on the clinical course. Thank you for your consult. Time with Patient: Greater than 30
--- NOTE | 2018-04-04 00:56 | P.PN ---
Subjective Progress Note Date: 04/03/18 Principal diagnosis: Intussusception resolved now Patient is a 37-year-old female with a PMH of variable immunodeficiency, Crohn' s disease, hypothyroidism and bipolar disorder presents to the emergency department for a chief complaint of upper abdominal pain 3.5 weeks. Patient states she was evaluated by her primary care physician who ordered a CAT scan and gallbladder study. Patient states she got a call from her primary care provider who told her to present to the emergency department immediately. Patient states she is having loose bowel movements which is normal for her as she has Crohn's disease. Patient is not on any maintenance medications for Crohn's disease. Patient did have prior exacerbation and was given steroids. Patient does take immunoglobulins subcutaneously every week at home. She denies noticing any blood in the stool. Patient admits to nausea but denies vomiting. She states she is passing gas. She states she is eating and drinking without difficulty. Patient has no other complaints at this time including shortness of breath, chest pain, headache, or visual changes. Hepatobiliary scan showed hypercontractile state suggested. CT of the abdominal pelvis showed a paced to be intussusception of small bowel in the left upper quadrant. Bowel wall thickening may represent active Crohn's disease or enteritis. There is adjacent mesenteric edema. Findings compatible with small bowel intussusception and surrounding edema. Mrs. enteritis are pancolitis in the differential diagnosis. No leukocytosis. Lites within normal limits. 04/02/2018 Patient says that her abdominal pain is better. Repeat CT abdomen pelvis showed resolved intussusception. Patient was started on clear liquid diet and advance as tolerated. Otherwise patient is being continued on antibiotics in the form of Zosyn for enteritis. ID is following. 04/03/2018 Patient denied any complaints of chest pain or shortness of breath. Complains of on and off right upper quadrant pain and patient does have chronic gallbladder symptoms. Gen. surgery to assess tomorrow regarding cholecystectomy. Otherwise abdominal pain is much better. Patient is getting infusion immunoglobin subcutaneous today. ID is following. Continued on antibiotics in the form of Zosyn. No fever no chills. No nausea vomiting or diarrhea. current medications reviewed. Objective - Vital Signs Vital signs: Vital Signs Temp 97.8 F 04/03/18 14:43 Pulse 68 04/03/18 14:43 Resp 16 04/03/18 14:43 BP 136/74 04/03/18 14:43 Pulse Ox 96 04/03/18 14:43 Intake & Output 04/02/18 04/03/18 04/03/18 18:59 06:59 18:59 Intake Total 1600 2820 1775 Balance 1600 2820 1775 Intake: Intake, IV Titration 1100 1300 1125 Amount Piperacillin-Tazobactam 3 100 100 .375 gm In Sodium Chloride 0.9% 100 ml @ 25 mls/hr IVPB Q8H [facility] Rx#: [id number] Sodium Chloride 0.9% 1, 1000 1200 1125 000 ml @ 125 mls/hr IV . Q8H [facility] Rx#:[id number] Oral 500 1520 650 Other: Voiding Method Toilet # Voids 1 2 2 - Exam PHYSICAL EXAMINATION: Patient is lying in the bed comfortably, no acute distress, awake alert and oriented.. HEENT: Normocephalic. Neck is supple. Pupils reactive. Nostrils clear. Oral cavity is moist. Ears reveal no drainage. Neck reveals no JVD, carotid bruits, or thyromegaly. CHEST EXAMINATION: Trachea is central. Symmetrical expansion. Lung romero clear to auscultation and percussion. CARDIAC: Normal S1, S2 with no gallops. No murmurs ABDOMEN: Soft. Bowel sounds normal. No organomegaly. No abdominal bruits. Extremities: reveal no edema. No clubbing or cyanosis Neurologically awake, alert, oriented x3 with well-coordinated movements. No focal deficits noted Skin: No rash or skin lesions. Psychiatric: Coperative. Nonsuicidal Musculoskeletal: No joint swelling or deformity. Normal range of motion. - Labs CBC & Chem 7: 04/02/18 13:59 04/02/18 13:59 Labs: Microbiology - Last 24 Hours (Table) 03/31/18 19:00 Blood Culture - Preliminary Blood No Growth after 48 hours Assessment and Plan Assessment: Left upper small bowel intussusception. Resolved Possible enteritis versus acute Crohn's disease exacerbation Crohn's disease Hypothyroidism Common Variable immunodeficiency Obesity DVT prophylaxis Plan: Patient will be started on clear liquid diet and advance as tolerated.. Continue with IV fluids and symptomatic management for pain and nausea. Continue with empiric antibiotics. IV immunoglobulin subcutaneous weekly. Continue the current management. Will follow closely and further recommendations based on the clinical course. Thank you for your consult. Time with Patient: Greater than 30
--- NOTE | 2018-04-04 01:59 | P.CONS ---
History of Present Illness - Reason for Consult Consult date: 04/02/18 IBD. - History of Present Illness The patient is a 37-year-old female with a PMH of variable immunodeficiency, Crohn's disease, hypothyroidism and bipolar disorder presents to the emergency department for a chief complaint of upper abdominal pain 3.5 weeks. Patient states she was evaluated by her primary care physician who ordered a CAT scan and gallbladder study. Patient states she got a call from her primary care provider who told her to present to the emergency department immediately. Apparently, CT of the abdomen showed intussusception of small bowel. Patient states she is having loose bowel movements which is normal for her as she has Crohn's disease. Patient is not on any maintenance medications for Crohn's disease. Patient did have prior exacerbation and was given steroids. Patient receives immunoglobulin subcutaneously every week at home. She denies noticing any blood in the stool. Patient admits to nausea but denies vomiting. She states she is passing gas. She states she is eating and drinking without difficulty. Patient has no other complaints at this time including shortness of breath, chest pain, headache, or visual changes. Hepatobiliary scan showed hypercontractile GB. CT of the abdominal pelvis showed intussusception of small bowel in the left upper quadrant. Bowel wall thickening may represent active Crohn's disease or enteritis. There is adjacent mesenteric edema. Findings compatible with small bowel intussusception and surrounding edema. Enteritis or pancolitis in the differential diagnosis. No leukocytosis. Lites within normal limits. Today, she reports her abdominal pain to be better. Repeat CT abdomen pelvis showed resolved intussusception. Patient is still nothing by mouth awaiting surgical repeat evaluation. Patient is being continued on antibiotics in the form of Zosyn for enteritis. Review of Systems Constitutional: Denies fever, chills, sweats, weight gain, or loss. HEENT: Negative for migraines, blurred vision or loss, earaches, drainage, tinnitus, oral mucosal lesions, dysphagia, or odynophagia. CARDIAC: Negative for chest pain, arrhythmias, or palpitation. RESPIRATORY: Denies hemoptysis, cough, or sputum production. GI: See HPI for pertinent findings. : Negative for hematuria, urgency, frequency, polyuria, or dysuria. MUSCULOSKELETAL: Negative for muscle aches, swelling, arthritis, and arthralgias. NEUROLOGIC: Negative for stroke or TIA. ENDOCRINE: Negative for polyuria or polydypsia. SKIN: Negative for rash or itching. PSYCHIATRIC: No history for depression and anxiety. Past Medical History Past Medical History: No Reported History Additional Past Medical History / Comment(s): common variable immune deficiency , crohns, History of Any Multi-Drug Resistant Organisms: None Reported Additional Past Surgical History / Comment(s): port placement and removal, port replacement B side Past Anesthesia/Blood Transfusion Reactions: No Reported Reaction Past Psychological History: Bipolar Smoking Status: Former smoker Past Alcohol Use History: None Reported Past Drug Use History: None Reported - Past Family History Mother Family Medical History: AFIB, Diabetes Mellitus, Hyperlipidemia, Hypertension, Osteoarthritis (OA) Additional Family Medical History / Comment(s): skin cancer Father Family Medical History: Cancer, Congestive Heart Failure (CHF), Coronary Artery Disease (CAD), Hypertension Additional Family Medical History / Comment(s): lung cancer Medications and Allergies Home Medications Medication Instructions Recorded Confirmed Type FLUoxetine HCL [PROzac] 40 mg PO DAILY 12/02/16 03/31/18 History Hizentra 10gm 10 gm SQ TH 03/31/18 03/31/18 History Levothyroxine Sodium 25 mcg PO DAILY 03/31/18 03/31/18 History Multivitamins, Thera [Multivitamin 1 tab PO DAILY 03/31/18 03/31/18 History (formulary)] Allergies Allergy/AdvReac Type Severity Reaction Status Date / Time codeine AdvReac Nausea & Verified 03/31/18 17:42 Vomiting morphine AdvReac Nausea & Verified 03/31/18 17:42 Vomiting Physical Exam Vitals: Vital Signs Temp Pulse Pulse Resp BP Pulse Ox 04/02/18 14:19 98 F 57 L 16 113/67 97 04/02/18 07:00 98.3 F 68 16 106/68 94 L 04/02/18 01:13 98.0 F 94 72 16 123/75 Intake and Output 04/02/18 04/02/18 04/02/18 06:59 14:59 22:59 Intake Total 750 Balance 750 Intake: Intake, IV Titration 750 Amount Sodium Chloride 0.9% 1, 750 000 ml @ 125 mls/hr IV . Q8H [facility] Rx#:[id number] General Appearance: The patient is alert, oriented, in no acute distress. HENT: Head is normocephalic and atraumatic. Pupils are equal and reactive. Oropharynx is clear without lesions. Neck: Supple without lymphadenopathy. Trachea midline. Heart: S1 S2. Regular rate and rhythm. Lungs: No crackles or wheezes are heard. Clear to auscultation. Abdomen: Soft, nontender, nondistended with bowel sounds present. No peritoneal signs. No palpable organomegaly or masses. Extremities: No clubbing, cyanosis or edema. Radial and pedal pulses are 2/4 bilaterally. Neurological: No focal deficits. Strength and sensation are grossly intact. Results CBC & Chem 7: 04/02/18 13:59 04/02/18 13:59 Labs: Abnormal Lab Results - Last 24 Hours (Table) 04/02/18 Range/Units 13:59 Chloride 108 H (98-107) mmol/L Microbiology - Last 24 Hours (Table) 03/31/18 19:00 Blood Culture - Preliminary Blood No Growth after 24 hours Assessment and Plan Assessment: Abdominal pain and history of Crohn's disease that has not required ongoing medical therapy with finding of intussusception on CT of the abdomen, now resolved. Patient expressed interest in having further evaluation is at [facility] where she was treated in the past. Plan: Agree with your current management. Patient can be started on clear liquid diet if okay with surgery. Consideration can be given for endoscopic evaluation to assess the activity of her Crohn's disease and to guide therapy. I will discuss with you and follow with you with interest.
[2018-04-04] MEDS: PIPERACILLIN-TAZOBACTAM 3.375 GM in SODIUM CHLORIDE 0.9% 100 ML IVPB SCH ×3 (03:49→19:57)
[2018-04-04] MEDS: ONDANSETRON 4 MG/2 ML VIAL IVP PRN (04:58)
[2018-04-04] MEDS: HYDROmorphone 1 MG/ML 1 ML SYRINGE IVP PRN ×4 (05:05→19:59)
[2018-04-04] MEDS: ACETAMINOPHEN TAB 325 MG TAB PO SCH ×4 (06:01→23:25)
[2018-04-04] MEDS: LEVOTHYROXINE 25 MCG TAB PO SCH (06:01)
[2018-04-04] MEDS: KETOROLAC 30 MG/ML 1 ML VIAL IVP SCH ×4 (06:02→23:26)
[2018-04-04] MEDS: DEXAMETHASONE SOD PHOSPHATE 10 MG/ML 1 ML VIAL IV SCH ×4 (06:04→23:26)
[2018-04-04] MEDS: PANTOPRAZOLE 40 MG/10 ML VIAL IVP SCH ×2 (09:00→19:56)
[2018-04-04] MEDS: FLUoxetine HCL 20 MG CAP PO SCH (09:01)
--- NOTE | 2018-04-04 11:13 | P.PN ---
Subjective Progress Note Date: 04/04/18 37-year-old female sitting up in bed states had a good day yesterday but woke up at 4 AM having same type pain she was experiencing prior to admission to the hospital. Patient states the pain was severe in the epigastric area radiating to the left anterior abdominal wall felt nauseated. No emesis. States pain medication does help. Patient does have a history of a common variable immune deficiency followed by physician at [facility] also reports having history of Crohn's disease. Which the patient is not on any maintenance medication for Crohn's disease does receiving immunoglobulin injections subcutaneous weekly at home . Patient reports chronic illness and has an underlying gallbladder disorder. Reportedly tolerating clear liquid diet no nausea no vomiting Patient has been seen by GI service reviewed the recommendations start patient on clear liquid diet consider endoscopic eval to assess the activity of the Crohn's disease and to guide therapy Objective - Vital Signs Vital signs: Vital Signs Temp 98.7 F 04/04/18 07:25 Pulse 50 L 04/04/18 07:25 Resp 17 04/04/18 07:25 BP 98/61 04/04/18 07:25 Pulse Ox 98 04/04/18 07:25 Intake & Output 04/03/18 04/04/18 04/04/18 18:59 06:59 18:59 Intake Total 1775 3160 630 Balance 1775 3160 630 Intake: Intake, IV Titration 1125 1700 Amount Piperacillin-Tazobactam 3 200 .375 gm In Sodium Chloride 0.9% 100 ml @ 25 mls/hr IVPB Q8H [facility] Rx#: [id number] Sodium Chloride 0.9% 1, 1125 1500 000 ml @ 125 mls/hr IV . Q8H [facility] Rx#:[id number] Oral 650 1460 630 Other: # Voids 2 2 # Bowel Movements 1 - Exam Physical exam 37-year-old female appears in no acute distress resting in bed Lungs adequate air movement bilaterally no shortness of breath Heart S1-S2 audible regular Abdomen soft reports having an episode of foreign the morning of left anterior quadrant abdominal pain radiating across diffuse tenderness nausea sensation no active emesis no stool Extremities no edema noted Skin posterior thoracic area nonraised dry skin lesions noted denies pain stated the skin lesions developed yesterday afternoon - Labs CBC & Chem 7: 04/02/18 13:59 04/02/18 13:59 Labs: Abnormal Lab Results - Last 24 Hours (Table) 04/02/18 Range/Units 13:59 IgG 533.0 L (700.0-1600.0) mg/dL Microbiology - Last 24 Hours (Table) 03/31/18 19:00 Blood Culture - Preliminary Blood No Growth after 72 hours Assessment and Plan Assessment: Impression Chronic gallbladder symptoms pre-existing prior to admission History of common bearable immune deficiency History of Crohn's disease treated medical management Present on admission left upper and lower quadrant abdominal pain suspect due to intuaausception of the small bowel in the left upper quadrant with bowel wall thickening may represent active Crohn's disease HIDA scan shows hyper contractility EF 96 Repeat CAT scan abdomen and pelvis demonstrates resolution of intussusception done on April 01 Plan: Pain control Continue recommendations by infectious disease Continue recommendations by GI may need endoscopic eval to assess the activity of Crohn's disease and to guide therapy DVT and GI prophylaxis IV Zosyn as ordered per infectious disease recommendations IV fluid for hydration Further surgical recommendations pending The above impression and plan of care have been discussed and directed by signing physician. Marta Parker nurse practitioner acting as scribe for signing physician.
[2018-04-04 14:03] VITALS: BMI 34.8
--- NOTE | 2018-04-04 17:46 | P.PN ---
Subjective Progress Note Date: 04/04/18 Progress note being dictated for Dr. Garcia. Interval history:Patient is a 37-year-old female with a PMH of variable immunodeficiency, Crohn's disease, hypothyroidism and bipolar disorder presents to the emergency department for a chief complaint of upper abdominal pain 3.5 weeks. Patient states she was evaluated by her primary care physician who ordered a CAT scan and gallbladder study. Patient states she got a call from her primary care provider who told her to present to the emergency department immediately. Patient states she is having loose bowel movements which is normal for her as she has Crohn's disease. Patient is not on any maintenance medications for Crohn's disease. Patient did have prior exacerbation and was given steroids. Patient does take immunoglobulins subcutaneously every week at home. She denies noticing any blood in the stool. Patient admits to nausea but denies vomiting. She states she is passing gas. She states she is eating and drinking without difficulty. Patient has no other complaints at this time including shortness of breath, chest pain, headache, or visual changes. Hepatobiliary scan showed hypercontractile state suggested. CT of the abdominal pelvis showed a paced to be intussusception of small bowel in the left upper quadrant. Bowel wall thickening may represent active Crohn's disease or enteritis. There is adjacent mesenteric edema. Findings compatible with small bowel intussusception and surrounding edema. Mrs. enteritis are pancolitis in the differential diagnosis. No leukocytosis. Lites within normal limits. 04/02/2018 Patient says that her abdominal pain is better. Repeat CT abdomen pelvis showed resolved intussusception. Patient was started on clear liquid diet and advance as tolerated. Otherwise patient is being continued on antibiotics in the form of Zosyn for enteritis. ID is following. 04/03/2018 Patient denied any complaints of chest pain or shortness of breath. Complains of on and off right upper quadrant pain and patient does have chronic gallbladder symptoms. Gen. surgery to assess tomorrow regarding cholecystectomy. Otherwise abdominal pain is much better. Patient is getting infusion immunoglobin subcutaneous today. ID is following. Continued on antibiotics in the form of Zosyn. No fever no chills. No nausea vomiting or diarrhea. current medications reviewed. 04/04/2018 maintained on Zosyn. Complains of itchiness on back, few nonpainful reddened, nonraised, nondraining circular areas noted. Complains of abdominal pain bilateral upper quadrant and left lower quadrant. Nausea and vomiting persists, continues on IV fluid hydration. Recent immunoglobulins subcu prior to admission, IgG levels still low, 533. Maintained on IV antibiotics as per infectious disease. Clear liquid diet recommended as per GI. Review of Systems Constitutional: Patient denies any fever or chills . No generalized weakness or weight loss. Abdomen: Positive nausea/ no vomiting. Bilateral upper quadrant and left lower quadrant abdominal pain. No bowel movement Cardiovascular: Patient denies any chest pain or short of breath no palpitations. Respiratory: patient denied any cough is from production. No shortness of breath Neurologic: Patient denied any numbness or tingling headache. Musculoskeletal: Patient denies any complaints of joint swelling or deformity. Skin: Negative Psychiatric: Negative Endocrine: No heat or cold intolerance. No recent weight gain. Genitourinary: No dysuria or hematuria. All other 14 point ROS negative except the above Active Medications Acetaminophen (Tylenol Tab) 650 mg PO Q6HR [facility] Last Admin: 04/04/18 11:31 Dose: 650 mg Dexamethasone Sodium Phosphate (Decadron) 4 mg IV Q6HR [facility] Last Admin: 04/04/18 11:31 Dose: 4 mg Diphenhydramine HCl (Benadryl) 25 mg PO Q6H PRN PRN Reason: Itching Fluoxetine HCl (Prozac) 40 mg PO DAILY [facility] Last Admin: 04/04/18 09:01 Dose: 40 mg Hydromorphone HCl (Dilaudid) 0.5 mg IVP Q4H PRN PRN Reason: Moderate Pain Last Admin: 04/04/18 13:43 Dose: 0.5 mg Hydromorphone HCl (Dilaudid) 1 mg IVP Q2H PRN PRN Reason: Severe Pain Last Admin: 04/04/18 09:00 Dose: 1 mg Piperacillin Sod/Tazobactam (Sod 3.375 gm/ Sodium Chloride) 100 mls @ 25 mls/ hr IVPB Q8H [facility] Last Admin: 04/04/18 11:31 Dose: 25 mls/hr Sodium Chloride (Saline 0.9%) 1,000 mls @ 125 mls/hr IV .Q8H [facility] Last Admin: 04/03/18 20:52 Dose: 125 mls/hr Ketorolac Tromethamine (Toradol) 30 mg IVP Q6HR [facility] Stop: 04/07/18 18:01 Last Admin: 04/04/18 11:30 Dose: 30 mg Levothyroxine Sodium (Synthroid) 25 mcg PO DAILY@0630 [facility] Last Admin: 04/04/18 06:01 Dose: 25 mcg Naloxone HCl (Narcan) 0.2 mg IV Q2M PRN PRN Reason: Opioid Reversal Non-Formulary Drug ( (Hizentra 10gm)) 10 gm SQ TH [facility] Last Admin: 04/03/18 14:16 Dose: 10 gm Ondansetron HCl (Zofran) 4 mg IVP Q8HR PRN PRN Reason: Nausea And Vomiting Last Admin: 04/04/18 04:58 Dose: 4 mg Pantoprazole Sodium (Protonix) 40 mg IVP BID [facility] Last Admin: 04/04/18 09:00 Dose: 40 mg Objective - Vital Signs Vital signs: Vital Signs Temp 98.7 F 04/04/18 07:25 Pulse 50 L 04/04/18 07:25 Resp 17 04/04/18 07:25 BP 98/61 04/04/18 07:25 Pulse Ox 98 04/04/18 07:25 Intake & Output 04/03/18 04/04/18 04/04/18 18:59 06:59 18:59 Intake Total 1775 3160 1480 Balance 1775 3160 1480 Weight 113.398 kg Intake: Intake, IV Titration 1125 1700 Amount Piperacillin-Tazobactam 3 200 .375 gm In Sodium Chloride 0.9% 100 ml @ 25 mls/hr IVPB Q8H [facility] Rx#: [id number] Sodium Chloride 0.9% 1, 1125 1500 000 ml @ 125 mls/hr IV . Q8H [facility] Rx#:[id number] Oral 650 1460 1480 Other: # Voids 2 2 # Bowel Movements 1 - Exam Patient is sitting up in in the bed comfortably, no acute distress, awake alert and oriented.. HEENT: Normocephalic. Neck is supple. Pupils reactive. Nostrils clear. Oral cavity is moist. Neck reveals no JVD, carotid bruits, or thyromegaly. CHEST EXAMINATION: Trachea is central. Symmetrical expansion. Lung romero clear to auscultation and percussion. CARDIAC: Normal S1, S2 with no gallops. No murmurs ABDOMEN: Soft. Distended, diffuse abdominal pain ,Bowel sounds normal. No organomegaly. No abdominal bruits. Extremities: reveal no edema. No clubbing or cyanosis Neurologically awake, alert, oriented x3 with well-coordinated movements. No focal deficits noted Skin: Mild, nonpainful nonraised dry skin lesions noted on posterior thoracic area Musculoskeletal: No joint swelling or deformity. Normal range of motion. - Labs CBC & Chem 7: 04/02/18 13:59 04/02/18 13:59 Labs: Abnormal Lab Results - Last 24 Hours (Table) 04/02/18 Range/Units 13:59 IgG 533.0 L (700.0-1600.0) mg/dL Microbiology - Last 24 Hours (Table) 04/04/18 08:40 Urine Culture - Preliminary Urine,Clean Catch 03/31/18 19:00 Blood Culture - Preliminary Blood No Growth after 72 hours Assessment and Plan Assessment: Left upper small bowel intussusception. Resolved -reported per repeat CT Possible enteritis versus acute Crohn's disease exacerbation Crohn's disease Hypothyroidism Common Variable immunodeficiency Obesity DVT prophylaxis Plan: Continue on current medication regime ,monitoring and symptomatic treatment. Maintain gentle IV fluid hydration, empiric antibiotics. Follow with surgery closely. GI discussing potential endoscopy evaluation of Crohn's disease as patient currently not on Crohn's maintenance medications. Patient follows with public speaking teacher Hortensia Whitaker for immunoglobulin deficiency. Antibiotics as per infectious disease. Pain management. Benadryl added to med regime. The impression and plan of care has been dictated as directed. : I performed a history and examination of this patient, discussed the same with the dictator. I agree with the dictator's note ,documented as a scribe. Any additional findings or plans will be noted.
[2018-04-04] MEDS: SODIUM CHLORIDE 0.9% 1,000 ML IV SCH ×3 (18:49→19:57)
[2018-04-04] MEDS: diphenhydrAMINE 25 MG CAP PO PRN (18:51)
--- NOTE | 2018-04-04 19:44 | XR ---
EXAMINATION TYPE: XR chest 1V portable DATE OF EXAM: 04/04/2018 COMPARISON: NONE HISTORY: Abdominal pain TECHNIQUE: Single frontal view of the chest is obtained. FINDINGS: There is no heart failure nor confluent pneumonic infiltrate. Costophrenic angles are lavern r. Heart size is normal. Bony thorax is intact. IMPRESSION: No active cardiopulmonary disease. Normal heart.
[2018-04-04 21:04] LABS: Basophils % (A) 0 %; Eosinophils % (A) 0 %; HCT 35.9 % (34.0-46.0); HGB 11.7 gm/dL (11.4-16.0); Lymphocytes % (A) 10 %; MCH 28.8 pg (25.0-35.0); MCHC 32.5 g/dL (31.0-37.0); MCV 88.8 fL (80.0-100.0); Mean Platelet Volume 7.5; Monocytes # (A) 0.5 k/uL (0-1.0); Monocytes % (A) 6 %; Neutrophils # (A) 7.8 k/uL (1.3-7.7); Neutrophils % (A) 82 %; Platelet Count 201 k/uL (150-450); RBC 4.04 m/uL (3.80-5.40); RDW 12.4 % (11.5-15.5); WBC 9.4 k/uL (3.8-10.6)
[2018-04-04 21:09] LABS: ALT 33 U/L (9-52); AST 31 U/L (14-36); Albumin 3.3 g/dL (3.5-5.0); Alkaline Phosphatase 50 U/L (38-126); Anion Gap 6 mmol/L; Blood Urea Nitrogen 5 mg/dL (7-17); Calcium 8.4 mg/dL (8.4-10.2); Carbon Dioxide 26 mmol/L (22-30); Chloride 108 mmol/L (98-107); Glucose 202 mg/dL (74-99); Potassium 4.5 mmol/L (3.5-5.1); Sodium 140 mmol/L (137-145); Total Bilirubin 0.2 mg/dL (0.2-1.3); Total Protein 5.7 g/dL (6.3-8.2)
--- NOTE | 2018-04-04 21:23 | P.PN ---
Subjective Progress Note Date: 04/04/18 57-year-old female presents to Hospital from home with a several week history of progressive abdominal pain and not feeling well overall. She is extremely complex past medical history is also positive for common variable immune deficiency and follows with immunology at [facility]. She receives subcutaneous in a globulin biweekly basis. She relates that she's been on this therapy there is no improvement of her status and is not having as many infections as she used to. 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 Does have a history of Crohn's disease and has been somewhat quiet as of late until the significant onset of her worsening abdominal pain and in the absence of nausea and emesis. His as occurred she stopped having her frequent loose stools but had increasing abdominal pain. Imaging studies were performed revealing evidence of the intersusseption which is now improving bilateral follow-up computed tomography scan. Infectious diseases consultation regarding plan of her immunoglobulin therapy. 04/03/2018 patient is feeling somewhat better today. Abdominal pain has improved is not localized just to the left upper quadrant lateral area. She is tolerating clear liquids without difficulty. 04/04/2018 patient is feeling more poorly today than yesterday. Since evaluation yesterday she relates that she's had over the last 12 hours increasing abdominal pain to the left lower quadrant. She had a bout of nausea and emesis and this is not resolved. Her pain is responding to the current mixture of pain medications. She is not having fevers or chills. He subcutaneous in the globulin was given without any difficulties. Objective - Vital Signs Vital signs: Vital Signs Temp 98.7 F 04/04/18 07:25 Pulse 72 04/04/18 15:00 Resp 17 04/04/18 15:30 BP 121/67 04/04/18 15:00 Pulse Ox 99 04/04/18 15:00 Intake & Output 04/04/18 04/04/18 04/05/18 06:59 18:59 06:59 Intake Total 3160 2680 Balance 3160 2680 Weight 113.398 kg Intake: Intake, IV Titration 1700 Amount Piperacillin-Tazobactam 3 200 .375 gm In Sodium Chloride 0.9% 100 ml @ 25 mls/hr IVPB [facility] Rx#: [id number] Sodium Chloride 0.9% 1, 1500 000 ml @ 125 mls/hr IV . [facility] Rx#:[id number] Oral 1460 2680 Other: # Voids 2 2 # Bowel Movements 1 - Exam 37-year-old woman who suffers from obesity and appears somewhat chronically ill HEENT: Anicteric conjunctiva are pink and moist nasal mucosa grossly intact without significant lesions, there is no thrush. Neck: The neck is supple without significant lymphadenopathy or thyromegaly. Lungs: Symmetrical air entry is noted. Expiratory wheezes are heard. No bronchial sounds with dullness or egophony Heart: Regular rate and rhythm with an audible S1-S2, no S3 no S4. There is no significant murmur click or rub, PMI was nondisplaced. Abdomen: Mildly distended. Abdominal tenderness is worsened today and is localized to just the left lateral lower quadrant. There is no guarding or rebound. No palpable organomegaly is noted. Extremities: The upper extremities have excellent pulses they are symmetric, no significant petechiae or telangiectasia. No splinter hemorrhages were noted. Lower extremities reveal evidence of the bilateral lower extremity edema there is also edema of her hands. No open ulcerations are seen Neuro: Awake alert oriented to person place and time. There are no acute new gross focal sensory motor deficits. Patient has difficulties with chronic anxiety. - Labs CBC & Chem 7: 04/04/18 20:29 04/04/18 20:29 Labs: Abnormal Lab Results - Last 24 Hours (Table) 04/02/18 04/04/18 04/04/18 Range/Units 13:59 20:29 20:29 Neutrophils # 7.8 H (1.3-7.7) k/uL Chloride 108 H (98-107) mmol/L BUN 5 L (7-17) mg/dL Glucose 202 H (74-99) mg/dL Total Protein 5.7 L (6.3-8.2) g/dL Albumin 3.3 L (3.5-5.0) g/dL IgG 533.0 L (700.0-1600.0) mg/dL Microbiology - Last 24 Hours (Table) 03/31/18 19:00 Blood Culture - Preliminary Blood No Growth after 96 hours 04/04/18 08:40 Urine Culture - Preliminary Urine,Clean Catch Laboratory Results WBC 9.4 k/uL (3.8-10.6) 04/04/18 20: RBC 4.04 m/uL (3.80-5.40) 04/04/18 20: Hgb 11.7 gm/dL (11.4-16.0) 04/04/18 20: Hct 35.9 % (34.0-46.0) 04/04/18 20: MCV 88.8 fL (80.0-100.0) 04/04/18 20: MCH 28.8 pg (25.0-35.0) 04/04/18 20: MCHC 32.5 g/dL (31.0-37.0) 04/04/18 20: RDW 12.4 % (11.5-15.5) 04/04/18 20: Plt Count 201 k/uL (150-450) 04/04/18 20: Neutrophils % 82 % 04/04/18 20: Lymphocytes % 10 % 04/04/18 20: Monocytes % 6 % 04/04/18 20: Eosinophils % 0 % 04/04/18 20: Basophils % 0 % 04/04/18 20: Neutrophils # 7.8 k/uL (1.3-7.7) H 04/04/18 20: Lymphocytes # 1.0 k/uL (1.0-4.8) 04/04/18 20: Monocytes # 0.5 k/uL (0-1.0) 04/04/18 20: Eosinophils # 0.0 k/uL (0-0.7) 04/04/18 20: Basophils # 0.0 k/uL (0-0.2) 04/04/18 20: Sodium 140 mmol/L (137-145) 04/04/18 20: Potassium 4.5 mmol/L (3.5-5.1) 04/04/18 20: Chloride 108 mmol/L (98-107) H 04/04/18 20: Carbon Dioxide 26 mmol/L (22-30) 04/04/18 20: Anion Gap 6 mmol/L 04/04/18 20: BUN 5 mg/dL (7-17) L 04/04/18 20: Creatinine 0.66 mg/dL (0.52-1.04) 04/04/18 20:29 Est GFR (CKD-EPI)AfAm >90 (>60 ml/min/1.73 sqM) 04/04/18 20:29 Est GFR (CKD-EPI)NonAf >90 (>60 ml/min/1.73 sqM) 04/04/18 20:29 Glucose 202 mg/dL (74-99) H 04/04/18 20:29 POC Glucose (mg/dL) 77 mg/dL (75-99) 04/02/18 11:16 POC Glu Bread Room Hand ID 04/02/18 11:16 Plasma Lactic Acid Keith 1.4 mmol/L (0.7-2.0) 03/31/18 18: Calcium 8.4 mg/dL (8.4-10.2) 04/04/18 20: Total Bilirubin 0.2 mg/dL (0.2-1.3) 04/04/18 20:29 AST 31 U/L (14-36) 04/04/18 20:29 ALT 33 U/L (9-52) 04/04/18 20:29 Alkaline Phosphatase 50 U/L (38-126) 04/04/18 20:29 Total Protein 5.7 g/dL (6.3-8.2) L 04/04/18 20:29 Albumin 3.3 g/dL (3.5-5.0) L 04/04/18 20:29 Urine Color Colorless 03/31/18 18:25 Urine Appearance Clear (Clear) 03/31/18 18: Urine pH 6.5 (5.0-8.0) 03/31/18 18: Ur Specific Rogers 1.006 (1.001-1.035) 03/31/18 18:25 Urine Protein Negative (Negative) 03/31/18 18: Urine Glucose (UA) Negative (Negative) 03/31/18 18: Urine Ketones Negative (Negative) 03/31/18 18: Urine Blood Negative (Negative) 03/31/18 18: Urine Nitrite Negative (Negative) 03/31/18 18: Urine Bilirubin Negative (Negative) 03/31/18 18: Urine Urobilinogen <2.0 mg/dL (<2.0) 03/31/18 18:25 Ur Leukocyte Esterase Negative (Negative) 03/31/18 18:25 Urine HCG, Qual Not Detected (Not Detectd) 03/31/18 18:25 IgG 533.0 mg/dL (700.0-1600.0) L 04/02/18 13:59 Microbiology 03/31/18 19:00 Blood Blood Culture - Preliminary No Growth after 96 hours 04/04/18 08:40 Urine,Clean Catch Urine Culture - Preliminary Assessment and Plan (1) Common variable immunodeficiency Narrative/Plan: 37-year-old female who has multiple medical troubles including Crohn' s disease and common variable immunodeficiency presents to Hospital with a several week history of progressive abdominal symptoms. Eventually her abdominal pain increases she's having nausea and emesis in counseling presents to hospital with evidence of dehydration and worsening abdominal pain. Computed tomography scan performed shows evidence of the introsusception and she 's been on bowel rest and is showing marked improvement. Follow-up computed tomography scan shows evidence of resolution of the acute intersusepction. Anti -inflammatories will be added to help with the swelling of the bowel into improve her symptoms. Nausea control as per the general surgeon. She has been initiated antibiotic therapy with Zosyn which is appropriate this point in time pending any culture results. The patient utilizes subcutaneous immunoglobulin on a weekly basis. Her will bring in the medication from home. Pharmacy will verify it. She will bring her kit for the infusion of the 3 sites. And hopefuuly this can be given tomorrow. 04/03/2018 patient is improving today. The patient's is bringing her subcutaneous immunoglobulin in which there are still some the pharmacy so was verified and then they can be given through the 3 injection sites per her protocol. Her nausea is definitely improved. She has no other new acute complaints. 04/04/2018 patient was feeling better now swelling slowly worse. The patient is evaluated surgeon is present. If she is not improved tomorrow another CAT scan will be performed to further evaluate the concerns of the introsusception. She tolerated the subcutaneous immunoglobulin without difficulties. Of note her level was low despite her ongoing therapy. Current Visit: Yes Status: Acute Code(s): D83.9 - COMMON VARIABLE IMMUNODEFICIENCY, UNSPECIFIED SNOMED Code(s): 93910128 (2) Obesity (BMI 30.0-34.9) Current Visit: Yes Status: Acute Code(s): E66.9 - OBESITY, UNSPECIFIED SNOMED Code(s): 599265215137421 (3) Intussusception Current Visit: Yes Status: Acute Code(s): K56.1 - INTUSSUSCEPTION SNOMED Code(s): 64629496
--- NOTE | 2018-04-04 23:15 | P.PN ---
Subjective Progress Note Date: 04/04/18 Principal diagnosis: Intussusception, history of Crohn's disease Patient seen lying in bed, reporting that her abdominal pain is worse since yesterday. She reports that she was doing well until approximately mid day yesterday with the pain worsened. She reports having a bowel movement yesterday and only passing a small amount of stool today with gas. Objective - Vital Signs Vital signs: Vital Signs Temp 98.7 F 04/04/18 07:25 Pulse 72 04/04/18 15:00 Resp 17 04/04/18 15:30 BP 121/67 04/04/18 15:00 Pulse Ox 99 04/04/18 15:00 Intake & Output 04/04/18 04/04/18 04/05/18 06:59 18:59 06:59 Intake Total 3160 2680 Balance 3160 2680 Weight 113.398 kg Intake: Intake, IV Titration 1700 Amount Piperacillin-Tazobactam 3 200 .375 gm In Sodium Chloride 0.9% 100 ml @ 25 mls/hr IVPB Q8H [facility] Rx#: [id number] Sodium Chloride 0.9% 1, 1500 000 ml @ 125 mls/hr IV . Q8H [facility] Rx#:[id number] Oral 1460 2680 Other: # Voids 2 2 # Bowel Movements 1 - Exam On physical examination, patient appears comfortable in no apparent distress. HEAD: Normocephalic, atraumatic. EYES: No scleral icterus. No conjunctival injection. MOUTH: No lesions, tongue midline. NECK: Trachea midline, no gross abnormalities. CHEST: Clear to auscultation with no wheezing or rhonchi appreciated. HEART: Regular rate and rhythm. ABDOMEN: Soft, obese diffusely tender to palpation. Bowel sounds are positive. No organomegaly. No guarding or rigidity. EXTREMITIES: No pedal edema. SKIN: No rashes, no jaundice. NEUROLOGIC: Alert and oriented x3. No focal deficits. - Labs CBC & Chem 7: 04/04/18 20:29 04/04/18 20:29 Labs: Abnormal Lab Results - Last 24 Hours (Table) 04/02/18 04/04/18 04/04/18 Range/Units 13:59 20:29 20:29 Neutrophils # 7.8 H (1.3-7.7) k/uL Chloride 108 H (98-107) mmol/L BUN 5 L (7-17) mg/dL Glucose 202 H (74-99) mg/dL Total Protein 5.7 L (6.3-8.2) g/dL Albumin 3.3 L (3.5-5.0) g/dL IgG 533.0 L (700.0-1600.0) mg/dL Microbiology - Last 24 Hours (Table) 03/31/18 19:00 Blood Culture - Preliminary Blood No Growth after 96 hours 04/04/18 08:40 Urine Culture - Preliminary Urine,Clean Catch Assessment and Plan (1) Intussusception Narrative/Plan: Presenting with abdominal pain with findings of intussusception on computed tomography scan which were subsequently resolved on follow-up CT. The patient is now complaining of worsening abdominal pain. She is being seen by the surgical service. Plan is for possible repeat CT tomorrow if pain is not improved. Current Visit: Yes Status: Acute Code(s): K56.1 - INTUSSUSCEPTION SNOMED Code(s): 80666108 (2) History of Crohn's disease Narrative/Plan: Patient reports an approximate four-year history of Crohn's disease. She is unsure if this is restricted to the small bowel or if there is large bowel involvement. She denies any long-term medical therapy for her Crohn's disease, she does report dry oral therapy which she was unable to tolerate a now has only been on as needed steroid therapy intermittently and she reports her disease flares. She denies any prior surgeries for her Crohn's disease. Current Visit: Yes Status: Acute Code(s): Z87.19 - PERSONAL HISTORY OF OTHER DISEASES OF THE DIGESTIVE SYSTEM SNOMED Code(s): 031216196664714 Plan: Supportive care Diet per surgery Appreciate surgical recommendations, per reviewed progress Notes, the plan is for possible repeat imaging with computed tomography scan if the patient's pain is not improved. Last computed tomography scan did show resolution of intussusception. Continue antibiotic therapy No plan for endoscopic evaluation at this time We will continue to follow Thank you for allowing us to participate in the care of this patient
[2018-04-05] MEDS: HYDROmorphone 1 MG/ML 1 ML SYRINGE IVP PRN ×5 (01:47→20:32)
[2018-04-05] MEDS: PIPERACILLIN-TAZOBACTAM 3.375 GM in SODIUM CHLORIDE 0.9% 100 ML IVPB SCH ×3 (04:39→20:31)
[2018-04-05] MEDS: ACETAMINOPHEN TAB 325 MG TAB PO SCH ×3 (07:34→19:27)
[2018-04-05] MEDS: KETOROLAC 30 MG/ML 1 ML VIAL IVP SCH ×3 (07:35→19:27)
[2018-04-05] MEDS: LEVOTHYROXINE 25 MCG TAB PO SCH (07:35)
[2018-04-05] MEDS: DEXAMETHASONE SOD PHOSPHATE 10 MG/ML 1 ML VIAL IV SCH (07:37)
[2018-04-05 07:52] LABS: ALT 29 U/L (9-52); AST 25 U/L (14-36); Albumin 3.2 g/dL (3.5-5.0); Alkaline Phosphatase 45 U/L (38-126); Anion Gap 7 mmol/L; Blood Urea Nitrogen 5 mg/dL (7-17); Carbon Dioxide 26 mmol/L (22-30); Chloride 109 mmol/L (98-107); Glucose 165 mg/dL (74-99); Potassium 4.8 mmol/L (3.5-5.1); Sodium 142 mmol/L (137-145); Total Bilirubin 0.2 mg/dL (0.2-1.3); Total Protein 5.6 g/dL (6.3-8.2)
--- NOTE | 2018-04-05 08:33 | P.PN ---
Progress Note - Text Progress Note Date: 04/05/18 Patient still has complaints of left lower quadrant pain. It is slightly improved from last night. However the pain is still significant. On exam vital signs are stable. Her abdomen soft there is marked tenderness left lower quadrant. Patient undergo computed tomography scan of the abdomen and pelvis today.
[2018-04-05] MEDS ORDERED: IOPAMIDOL-300 CONTRAST 30 ML VIAL (ORAL USE) PO PRN (08:34)
[2018-04-05] MEDS: FLUoxetine HCL 20 MG CAP PO SCH (08:58)
[2018-04-05] MEDS: PANTOPRAZOLE 40 MG/10 ML VIAL IVP SCH ×2 (09:00→21:47)
[2018-04-05] MEDS: ONDANSETRON 4 MG/2 ML VIAL IVP PRN (10:43)
--- NOTE | 2018-04-05 10:46 | CT ---
EXAMINATION TYPE: CT abdomen w con DATE OF EXAM: 04/05/2018 HISTORY: Upper abdominal pain rule out abscess CT DLP: 1320.7mGycm Automated Exposure Control for Dose Reduction was Utilized. CONTRAST: CT scan of the abdomen is performed with oral and with IV Contrast, patient injected with 100 mL of I sovue 300. COMPARISON: CT abdomen and pelvis 4 days earlier FINDINGS: LUNG BASES: There are new small right greater than left pleural effusions with developing bibasilar l inear atelectasis. LIVER/GB: Gallbladder is redemonstrated with distended margins, new pericholecystic fluid is seen trey ng superior aspect surrounding gallbladder. PANCREAS: No significant abnormality is seen. SPLEEN: No significant abnormality is seen. ADRENALS: No significant abnormality is seen. KIDNEYS: There is symmetric cortical medullary uptake and excretion from both kidneys without evidenc e of hydronephrosis bilaterally BOWEL: Wall contrast does not reach colonic level making evaluation bowel slightly suboptimal. There is new moderate wall thickening of visualized portion of colon from ileocecal valve to the distal lef t colon. LYMPH NODES: No new greater than 1cm abdominal lymph nodes are appreciated. There is persistent mild mesenteric fat stranding or edema involving the left midabdomen with prominent but subcentimeter lym ph nodes redemonstrated throughout the entire abdomen redemonstrated. OSSEOUS STRUCTURES: No significant abnormality is seen. OTHER: No additional significant findings seen. IMPRESSION: 1. New moderate diffuse colitis, consider pseudomembranous colitis given patient history, among possi ble etiologies. 2. New pericholecystic fluid with mild fat stranding towards the cystic duct and neck, CT findings arroyo ggest possible acute cholecystitis, correlate clinically. 3. Stable mild angel mesentery appearance could reflect mesenteric panniculitis.
[2018-04-05] MEDS: diphenhydrAMINE 25 MG CAP PO PRN ×2 (11:56→21:47)
--- NOTE | 2018-04-05 11:57 | P.PN ---
Subjective Progress Note Date: 04/05/18 Principal diagnosis: abdominal pain 37-year-old female with a history of reported Crohn's admitted with abdominal pain. CT abdomen last week reported small jejunal intussusception in the left upper quadrant repeat CT of the abdomen 4 days ago did not identify intussusception. She was still having abdominal pain yesterday into to today CT of the abdomen was ordered this morning reported new moderate diffuse colitis consider pseudomembranous colitis given patient history with pericholecystic fluid mild fat straining towards the cystic duct did not possible acute cholecystitis. afebrile. No bleeding. No bowel movements. Yesterday white count 9.4. Hemoglobin 11.7. Objective - Vital Signs Vital signs: Vital Signs Temp 97.9 F 04/05/18 07:35 Pulse 52 L 04/05/18 07:35 Resp 17 04/05/18 07:35 BP 127/74 04/05/18 07:35 Pulse Ox 97 04/05/18 07:35 Intake & Output 04/04/18 04/05/18 04/05/18 18:59 06:59 18:59 Intake Total 2680 2445 600 Balance 2680 2445 600 Weight 113.398 kg Intake: Intake, IV Titration 1325 Amount Piperacillin-Tazobactam 3 200 .375 gm In Sodium Chloride 0.9% 100 ml @ 25 mls/hr IVPB Q8H [facility] Rx#: [id number] Sodium Chloride 0.9% 1, 1125 000 ml @ 125 mls/hr IV . Q8H [facility] Rx#:[id number] Oral 2680 1120 600 Other: Voiding Method Toilet # Voids 2 2 - Exam General appearance: The patient is alert, oriented, in no acute distress. HET: Head is normocephalic and atraumatic. Pupils are equal and reactive. Oropharynx is clear without lesions. Neck: Supple without lymphadenopathy. Trachea midline. Heart: S1 S2. Regular rate and rhythm. Lungs: No crackles or wheezes are heard. Abdomen: Soft, left mid left lower quadrant tenderness no tenderness appreciated in the right upper quadrant, nondistended with bowel sounds. No peritoneal signs. No palpable organomegaly or masses. Extremities: Normal skin color and turgor. No cyanosis, rash, ulceration, clubbing, or edema. Radial and pedal pulses are 2/4 bilaterally. Neurological: No focal deficits. Strength and sensation are grossly intact. - Labs CBC & Chem 7: 04/04/18 20:29 04/05/18 06:28 Labs: Abnormal Lab Results - Last 24 Hours (Table) 04/04/18 04/04/18 04/05/18 Range/Units 20:29 20:29 06:28 Neutrophils # 7.8 H (1.3-7.7) k/uL Chloride 108 H 109 H (98-107) mmol/L BUN 5 L 5 L (7-17) mg/dL Glucose 202 H 165 H (74-99) mg/dL Calcium 8.0 L (8.4-10.2) mg/dL Total Protein 5.7 L 5.6 L (6.3-8.2) g/dL Albumin 3.3 L 3.2 L (3.5-5.0) g/dL Microbiology - Last 24 Hours (Table) 03/31/18 19:00 Blood Culture - Preliminary Blood No Growth after 96 hours 04/04/18 08:40 Urine Culture - Preliminary Urine,Clean Catch Assessment and Plan (1) Abdominal pain Narrative/Plan: 37-year-old female with a reported history of Crohn's diseaseadmitted with acute abdominal pain CT imaging reported small bowel intussusception since resolved with repeat imaging. CT of the abdomen and pelvis this morning reports a diffuse colitis possible exacerbation of inflammatory bowel disease possible pseudomembranous membranous colitis. Current Visit: Yes Status: Acute Code(s): R10.9 - UNSPECIFIED ABDOMINAL PAIN SNOMED Code(s): 16934408 (2) History of Crohn's disease Current Visit: Yes Status: Acute Code(s): Z87.19 - PERSONAL HISTORY OF OTHER DISEASES OF THE DIGESTIVE SYSTEM SNOMED Code(s): 760970922204395 Plan: 1. Sed rate CRP now and in a.m. Continue with IV antibiotics and clear liquid diet. C. difficile testing EIA requested. We'll start prednisone 40 mg daily for treatment of colitis possible exacerbation of Crohn's colitis. We'll follow closely with you. CBC in a.m. assessment and plan a care discussed with Dr. Pimentel
[2018-04-05] MEDS: predniSONE 20 MG TAB PO SCH (11:59)
--- NOTE | 2018-04-05 13:58 | P.PN ---
Subjective Progress Note Date: 04/05/18 37-year-old female sitting up in bed patient has been seen by GI service. Computed tomography scan of the abdomen done this morning report reviewed showed new moderate diffuse colitis consider pseudomembranous] given the patient 's history of pericholecystic fluid towards the cystic duct currently patient is stating the abdominal pain is improving continues to have episodes of left upper quadrant abdominal pain did note GI service has started prednisone for treatment of colitis possible exacerbation. Patient states the GI service indicated that the patient be on prednisone for another 24 hours with further steroid recommendations at that time Objective - Vital Signs Vital signs: Vital Signs Temp 97.9 F 04/05/18 07:35 Pulse 52 L 04/05/18 07:35 Resp 17 04/05/18 07:35 BP 127/74 04/05/18 07:35 Pulse Ox 97 04/05/18 07:35 Intake & Output 04/04/18 04/05/18 04/05/18 18:59 06:59 18:59 Intake Total 2680 2445 600 Balance 2680 2445 600 Weight 113.398 kg Intake: Intake, IV Titration 1325 Amount Piperacillin-Tazobactam 3 200 .375 gm In Sodium Chloride 0.9% 100 ml @ 25 mls/hr IVPB Q8H [facility] Rx#: [id number] Sodium Chloride 0.9% 1, 1125 000 ml @ 125 mls/hr IV . Q8H [facility] Rx#:[id number] Oral 2680 1120 600 Other: Voiding Method Toilet # Voids 2 2 - Exam Physical exam 37-year-old female appears in no acute distress resting in bed playing cards states no further episodes of abdominal discomfort Lungs adequate air movement bilaterally no shortness of breath Heart S1-S2 audible regular Abdomen not distended soft mild tenderness to the left lower quadrant states improving not stooling no nausea no vomiting Extremities no edema noted - Labs CBC & Chem 7: 04/04/18 20:29 04/05/18 06:28 Labs: Abnormal Lab Results - Last 24 Hours (Table) 04/04/18 04/04/18 04/05/18 Range/Units 20:29 20:29 06:28 Neutrophils # 7.8 H (1.3-7.7) k/uL Chloride 108 H 109 H (98-107) mmol/L BUN 5 L 5 L (7-17) mg/dL Glucose 202 H 165 H (74-99) mg/dL Calcium 8.0 L (8.4-10.2) mg/dL Total Protein 5.7 L 5.6 L (6.3-8.2) g/dL Albumin 3.3 L 3.2 L (3.5-5.0) g/dL Microbiology - Last 24 Hours (Table) 04/04/18 08:40 Urine Culture - Final Urine,Clean Catch 03/31/18 19:00 Blood Culture - Preliminary Blood No Growth after 96 hours Assessment and Plan Assessment: Impression Chronic gallbladder symptoms pre-existing prior to admission History of common bearable immune deficiency History of Crohn's disease treated medical management Present on admission left upper and lower quadrant abdominal pain suspect due to intuaausception of the small bowel in the left upper quadrant with bowel wall thickening may represent active Crohn's disease HIDA scan shows hyper contractility EF 96 Repeat CAT scan abdomen and pelvis demonstrates resolution of intussusception done on April 01 Plan: Follow-up on pending labs Pain control Continue recommendations by infectious disease DVT and GI prophylaxis IV Zosyn as ordered per infectious disease recommendations IV fluid for hydration Further surgical recommendations pending Per GI service prednisone steroid has been initiated The above impression and plan of care have been discussed and directed by signing physician. Marta Parker nurse practitioner acting as scribe for signing physician.
--- NOTE | 2018-04-05 18:57 | P.PN ---
Subjective Progress Note Date: 04/05/18 Progress note being dictated for Dr. Garcia. Interval history:Patient is a 37-year-old female with a PMH of variable immunodeficiency, Crohn's disease, hypothyroidism and bipolar disorder presents to the emergency department for a chief complaint of upper abdominal pain 3.5 weeks. Patient states she was evaluated by her primary care physician who ordered a CAT scan and gallbladder study. Patient states she got a call from her primary care provider who told her to present to the emergency department immediately. Patient states she is having loose bowel movements which is normal for her as she has Crohn's disease. Patient is not on any maintenance medications for Crohn's disease. Patient did have prior exacerbation and was given steroids. Patient does take immunoglobulins subcutaneously every week at home. She denies noticing any blood in the stool. Patient admits to nausea but denies vomiting. She states she is passing gas. She states she is eating and drinking without difficulty. Patient has no other complaints at this time including shortness of breath, chest pain, headache, or visual changes. Hepatobiliary scan showed hypercontractile state suggested. CT of the abdominal pelvis showed a paced to be intussusception of small bowel in the left upper quadrant. Bowel wall thickening may represent active Crohn's disease or enteritis. There is adjacent mesenteric edema. Findings compatible with small bowel intussusception and surrounding edema. Mrs. enteritis are pancolitis in the differential diagnosis. No leukocytosis. Lites within normal limits. 04/02/2018 Patient says that her abdominal pain is better. Repeat CT abdomen pelvis showed resolved intussusception. Patient was started on clear liquid diet and advance as tolerated. Otherwise patient is being continued on antibiotics in the form of Zosyn for enteritis. ID is following. 04/03/2018 Patient denied any complaints of chest pain or shortness of breath. Complains of on and off right upper quadrant pain and patient does have chronic gallbladder symptoms. Gen. surgery to assess tomorrow regarding cholecystectomy. Otherwise abdominal pain is much better. Patient is getting infusion immunoglobin subcutaneous today. ID is following. Continued on antibiotics in the form of Zosyn. No fever no chills. No nausea vomiting or diarrhea. current medications reviewed. 04/04/2018 maintained on Zosyn. Complains of itchiness on back, few nonpainful reddened, nonraised, nondraining circular areas noted. Complains of abdominal pain bilateral upper quadrant and left lower quadrant. Nausea and vomiting persists, continues on IV fluid hydration. Recent immunoglobulins subcu prior to admission, IgG levels still low, 533. Maintained on IV antibiotics as per infectious disease. Clear liquid diet recommended as per GI. Review of Systems Constitutional: Patient denies any fever or chills . No generalized weakness or weight loss. Abdomen: Positive nausea/ no vomiting. Bilateral upper quadrant and left lower quadrant abdominal pain. No bowel movement Cardiovascular: Patient denies any chest pain or short of breath no palpitations. Respiratory: patient denied any cough is from production. No shortness of breath Neurologic: Patient denied any numbness or tingling headache. Musculoskeletal: Patient denies any complaints of joint swelling or deformity. Skin: Negative Psychiatric: Negative Endocrine: No heat or cold intolerance. No recent weight gain. Genitourinary: No dysuria or hematuria. All other 14 point ROS negative except the above Active Medications Acetaminophen (Tylenol Tab) 650 mg PO Q6HR [facility] Last Admin: 04/04/18 11:31 Dose: 650 mg Dexamethasone Sodium Phosphate (Decadron) 4 mg IV Q6HR [facility] Last Admin: 04/04/18 11:31 Dose: 4 mg Diphenhydramine HCl (Benadryl) 25 mg PO Q6H PRN PRN Reason: Itching Fluoxetine HCl (Prozac) 40 mg PO DAILY [facility] Last Admin: 04/04/18 09:01 Dose: 40 mg Hydromorphone HCl (Dilaudid) 0.5 mg IVP Q4H PRN PRN Reason: Moderate Pain Last Admin: 04/04/18 13:43 Dose: 0.5 mg Hydromorphone HCl (Dilaudid) 1 mg IVP Q2H PRN PRN Reason: Severe Pain Last Admin: 04/04/18 09:00 Dose: 1 mg Piperacillin Sod/Tazobactam (Sod 3.375 gm/ Sodium Chloride) 100 mls @ 25 mls/ hr IVPB Q8H [facility] Last Admin: 04/04/18 11:31 Dose: 25 mls/hr Sodium Chloride (Saline 0.9%) 1,000 mls @ 125 mls/hr IV .Q8H [facility] Last Admin: 04/03/18 20:52 Dose: 125 mls/hr Ketorolac Tromethamine (Toradol) 30 mg IVP Q6HR [facility] Stop: 04/07/18 18:01 Last Admin: 04/04/18 11:30 Dose: 30 mg Levothyroxine Sodium (Synthroid) 25 mcg PO DAILY@0630 [facility] Last Admin: 04/04/18 06:01 Dose: 25 mcg Naloxone HCl (Narcan) 0.2 mg IV Q2M PRN PRN Reason: Opioid Reversal Non-Formulary Drug ( (Hizentra 10gm)) 10 gm SQ TH [facility] Last Admin: 04/03/18 14:16 Dose: 10 gm Ondansetron HCl (Zofran) 4 mg IVP Q8HR PRN PRN Reason: Nausea And Vomiting Last Admin: 04/04/18 04:58 Dose: 4 mg Pantoprazole Sodium (Protonix) 40 mg IVP BID [facility] Last Admin: 04/04/18 09:00 Dose: 40 mg 04/05/2018 reports improving left lower quadrant abdominal pain.CT of abdomen and pelvis performed reporting new moderate diffuse colitis, consider pseudomembranous colitis, new pericholecystic fluid with mild fat stranding, suggestive of possible acute cholecystitis, 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 Afebrile. Diarrhea tested negative for C. difficile colitis. Evaluated by GI, steroids have been initiated. Objective - Vital Signs Vital signs: Vital Signs Temp 98.3 F 04/05/18 15:40 Pulse 52 L 04/05/18 15:40 Resp 17 04/05/18 15:40 BP 129/67 04/05/18 15:40 Pulse Ox 97 04/05/18 15:40 Intake & Output 04/04/18 04/05/18 04/05/18 18:59 06:59 18:59 Intake Total 2680 2445 1423 Balance 2680 2445 1423 Weight 113.398 kg Intake: Intake, IV Titration 1325 Amount Piperacillin-Tazobactam 3 200 .375 gm In Sodium Chloride 0.9% 100 ml @ 25 mls/hr IVPB Q8H [facility] Rx#: [id number] Sodium Chloride 0.9% 1, 1125 000 ml @ 125 mls/hr IV . Q8H [facility] Rx#:[id number] Oral 2680 1120 1423 Other: Voiding Method Toilet # Voids 2 2 3 - Exam Patient is sitting up in in the bed comfortably, no acute distress, awake alert and oriented, playing cards with her at bedside. HEENT: Normocephalic. Neck is supple. Pupils reactive. Nostrils clear. Oral cavity is moist. Neck reveals no JVD, carotid bruits, or thyromegaly. CHEST EXAMINATION: Trachea is central. Symmetrical expansion. Lung romero clear to auscultation and percussion. CARDIAC: Normal S1, S2 with no gallops. No murmurs ABDOMEN: Soft, nondistended, left lower quadrant abdominal pain ,Bowel sounds normal. No organomegaly. No abdominal bruits. Extremities: reveal no edema. No clubbing or cyanosis Neurologically awake, alert, oriented x3 with well-coordinated movements. No focal deficits noted Skin: Mild, nonpainful nonraised dry skin lesions noted on posterior thoracic area Musculoskeletal: No joint swelling or deformity. Normal range of motion. - Labs CBC & Chem 7: 04/04/18 20:29 04/05/18 06:28 Labs: Abnormal Lab Results - Last 24 Hours (Table) 04/04/18 04/04/18 04/05/18 Range/Units 20:29 20:29 06:28 Neutrophils # 7.8 H (1.3-7.7) k/uL Chloride 108 H 109 H (98-107) mmol/L BUN 5 L 5 L (7-17) mg/dL Glucose 202 H 165 H (74-99) mg/dL Calcium 8.0 L (8.4-10.2) mg/dL Total Protein 5.7 L 5.6 L (6.3-8.2) g/dL Albumin 3.3 L 3.2 L (3.5-5.0) g/dL Microbiology - Last 24 Hours (Table) 04/04/18 08:40 Urine Culture - Final Urine,Clean Catch 03/31/18 19:00 Blood Culture - Preliminary Blood No Growth after 96 hours Assessment and Plan Assessment: Left upper small bowel intussusception. Resolved -reported per repeat CT. Colitis, possible Crohn's exacerbation per abdominal CT this morning Crohn's disease Hypothyroidism Common Variable immunodeficiency Obesity DVT prophylaxis Plan: Continue on current medication regime ,monitoring and symptomatic treatment. Maintain gentle IV fluid hydration, IV antibiotics. Steroids initiated by GI. The impression and plan of care has been dictated as directed. : I performed a history and examination of this patient, discussed the same with the dictator. I agree with the dictator's note ,documented as a scribe. Any additional findings or plans will be noted.
[2018-04-05] MEDS: SODIUM CHLORIDE 0.9% 1,000 ML IV SCH ×3 (20:30→21:47)
[2018-04-05] MEDS ORDERED: SODIUM CHLORIDE 0.9% 1,000 ML IV SCH (23:00)
[2018-04-06] MEDS: ACETAMINOPHEN TAB 325 MG TAB PO SCH ×3 (00:49→16:22)
[2018-04-06] MEDS: KETOROLAC 30 MG/ML 1 ML VIAL IVP SCH ×3 (00:49→16:22)
[2018-04-06 01:19] VITALS: RESP 16
[2018-04-06] MEDS: PIPERACILLIN-TAZOBACTAM 3.375 GM in SODIUM CHLORIDE 0.9% 100 ML IVPB SCH ×2 (05:36→16:21)
[2018-04-06] MEDS: FLUoxetine HCL 20 MG CAP PO SCH (08:59)
[2018-04-06] MEDS: LEVOTHYROXINE 25 MCG TAB PO SCH (08:59)
[2018-04-06] MEDS: predniSONE 20 MG TAB PO SCH (08:59)
[2018-04-06] MEDS: PANTOPRAZOLE 40 MG/10 ML VIAL IVP SCH (08:59)
--- NOTE | 2018-04-06 09:37 | P.PN ---
Subjective Progress Note Date: 04/06/18 Principal diagnosis: abdominal pain 37-year-old female with a history of reported Crohn's admitted with abdominal pain. CT abdomen last week reported small jejunal intussusception in the left upper quadrant repeat CT of the abdomen 4 days ago did not identify intussusception. She was still having abdominal pain the other day repeat CT of the abdomen was ordered yesterday reported new moderate diffuse colitis consider pseudomembranous colitis given patient history with pericholecystic fluid mild fat straining towards the cystic duct did not possible acute cholecystitis. She was started on prednisone 40 mg daily and reports an improvement in her abdominal pain. Stool testing negative for Clostridium difficile. Reports shortness of breath wheezing lower leg swelling. ESR CRP within normal limits. afebrile. No bleeding. No diarrhea. Objective - Vital Signs Vital signs: Vital Signs Temp 98.1 F 04/06/18 07:41 Pulse 55 L 04/06/18 07:41 Resp 16 04/06/18 07:41 BP 147/85 04/06/18 07:41 Pulse Ox 95 04/06/18 07:41 Intake & Output 04/05/18 04/06/18 04/06/18 18:59 06:59 18:59 Intake Total 2273 1480 Balance 2273 1480 Intake: Intake, IV Titration 1480 Amount Sodium Chloride 0.9% 1, 1000 000 ml @ 125 mls/hr IV . Q8H [facility] Rx#:[id number] Sodium Chloride 0.9% 1, 480 000 ml @ 60 mls/hr IV . [id number] [facility] Rx#:[id number] Oral 2273 Other: # Voids 3 3 - Exam General appearance: The patient is alert, oriented, in no acute distress. HET: Head is normocephalic and atraumatic. Pupils are equal and reactive. Oropharynx is clear without lesions. Neck: Supple without lymphadenopathy. Trachea midline. Heart: S1 S2. Regular rate and rhythm. Lungs: Expiratory wheezes. Abdomen: Soft, mild mid left lower quadrant tenderness no tenderness appreciated in the right upper quadrant, nondistended with bowel sounds. No peritoneal signs. No palpable organomegaly or masses. Extremities: Normal skin color and turgor. No cyanosis, rash, ulceration, clubbing, or edema. Radial and pedal pulses are 2/4 bilaterally. Neurological: No focal deficits. Strength and sensation are grossly intact. - Labs CBC & Chem 7: 04/04/18 20:29 04/05/18 06:28 Labs: Microbiology - Last 24 Hours (Table) 03/31/18 19:00 Blood Culture - Preliminary Blood No Growth after 120 hours 04/04/18 08:40 Urine Culture - Final Urine,Clean Catch Assessment and Plan (1) Abdominal pain Narrative/Plan: 37-year-old female with a reported history of Crohn's diseaseadmitted with acute abdominal pain CT imaging reported small bowel intussusception since resolved with repeat imaging. CT of the abdomen and pelvis this morning reports a diffuse colitis possible exacerbation of inflammatory bowel disease. Current Visit: Yes Status: Acute Code(s): R10.9 - UNSPECIFIED ABDOMINAL PAIN SNOMED Code(s): 42408589 (2) History of Crohn's disease Current Visit: Yes Status: Acute Code(s): Z87.19 - PERSONAL HISTORY OF OTHER DISEASES OF THE DIGESTIVE SYSTEM SNOMED Code(s): 612139458827281 Plan: 1. Prednisone 40 mg daily taper down by 5 mg every 7 days prescription provided. Return to the office in 2-3 weeks for reevaluation. assessment and plan a care discussed with Dr. Pimentel
[2018-04-06] MEDS ORDERED: ALBUTEROL NEBULIZED 2.5 MG/3 ML INHALATION STA (11:04)
[2018-04-06] MEDS ORDERED: FUROSEMIDE 10 MG/ML 2 ML VIAL IV ONE (14:39)
[2018-04-06 15:13] VITALS: BP 133/77; PULSE 68; TEMP 98.3
--- NOTE | 2018-04-06 19:50 | PN ---
PROGRESS NOTE DATE OF SERVICE: 04/06/2018 This 37-year-old woman who was admitted with intussusception is being closely monitored. The patient improved significantly. No chest pain. No palpitations. No fever. Surgery is planning discharge. PHYSICAL EXAM: Alert and oriented x3. Blood pressure 130/76, respirations 16, temperature 98.2, pulse ox 97% on room air. HEENT: Conjunctivae normal. Oral mucosa moist. Neck is no jugular venous distention. No carotid bruit. No lymph node enlargement. Cardiovascular systems: S1, S2. Respirations: Breath sounds diminished in the bases. No rhonchi. No crackles. Abdomen is soft, nontender. No mass palpable. Legs are no edema, no swelling. Central nervous system: No focal deficits. LABS: CBC within normal limits. BMP noted. ASSESSMENT: 1. Upper abdominal pain with possible intussusception improving. 2. Crohn's disease, acute exacerbation. 3. Hypothyroidism. 4. Common variable immunodeficiency. 5. Obesity. 6. Deep vein thrombosis prophylaxis. RECOMMENDATIONS AND DISCUSSION: Recommend to continue current medications, management and symptomatic treatment. I would recommend resume the home medications. Closely follow with primary physician and glass cutter hand and rest of the recommendations per Surgery. Further recommendations to follow. MMODL / IJN: [id number] /
== END 2018-04-06 16:34 | disposition home or self-care (01) | DRG 386 ==
LOC: SUPCPDRO 17:06 → EC 17:06 → 4SSUR 19:11
PROVIDERS: ADMIT Surgery; ATTEND Surgery
DX: K50.912 Crohn's disease, unspecified, with intestinal obstruction (principal); D83.9 Common variable immunodeficiency, unspecified; K56.1 Intussusception; E03.9 Hypothyroidism, unspecified; E66.01 Morbid (severe) obesity due to excess calories; E86.0 Dehydration; F31.9 Bipolar disorder, unspecified; K82.9 Disease of gallbladder, unspecified; Z68.35 Body mass index [BMI] 35.0-35.9, adult; Z79.899 Other long term (current) drug therapy; Z80.1 Family history of malignant neoplasm of trachea, bronchus and lung; Z80.8 Family history of malignant neoplasm of other organs or systems; Z82.49 Family history of ischemic heart disease and other diseases of the circulatory system; Z83.3 Family history of diabetes mellitus; Z87.891 Personal history of nicotine dependence; Z79.890 Hormone replacement therapy
CPT/HCPCS: 36415; 71045; 74160; 74177; 78227; 80048; 80053; 81003; 81025; 82784; 83605; 85025; 85652; 86140; 87040; 87086; 87324; 94640; 96361; 96374; 96375; 99285

== ENCOUNTER 2018-04-11 12:02 | Emergency (ER) | payer MEDICARE, OTHER ==
[2018-04-11 12:10] VITALS: RESP 18
[2018-04-11] MEDS ORDERED: ONDANSETRON 4 MG/2 ML VIAL IVP STA (12:14)
[2018-04-11] MEDS ORDERED: SODIUM CHLORIDE 0.9% 1,000 ML IV STA (12:14)
--- NOTE | 2018-04-11 12:45 | ED ---
GI Bleed HPI - General Chief complaint: GI Bleed Stated complaint: blood in stool Time Seen by Provider: 04/11/18 12:14 Source: patient, RN notes reviewed, old records reviewed Mode of arrival: ambulatory Limitations: no limitations - History of Present Illness Initial comments: This is a 37-year-old female the ER for eversion of bowel pain. No history of Crohn's disease with recent intussusception and colitis, patient also has underlying gallbladder disease. No recent surgeries, she does have recent inpatient hospitalization, complaint: other -: days(s) (3) Radiation: none Severity scale (1-10): 1 Consistency: constant Improves with: medication Worsens with: eating Context: history of GI bleed Associated Symptoms: abdominal pain, nausea, vomiting Treatments Prior to Arrival: none - Related Data Home Medications Medication Instructions Recorded Confirmed FLUoxetine HCL [PROzac] 40 mg PO DAILY 12/02/16 04/11/18 Hizentra 10gm 10 gm SQ TH 03/31/18 04/11/18 Levothyroxine Sodium 25 mcg PO DAILY 03/31/18 04/11/18 Multivitamins, Thera [Multivitamin 1 tab PO DAILY 03/31/18 04/11/18 (formulary)] predniSONE See Taper PO DAILY 04/11/18 04/11/18 Previous Rx's Medication Instructions Recorded Acetaminophen Tab [Tylenol] 650 mg PO Q6HR tab 04/06/18 Pantoprazole Sodium [Protonix] 40 mg PO DAILY #30 tablet. 04/06/18 Allergies Allergy/AdvReac Type Severity Reaction Status Date / Time codeine AdvReac Nausea & Verified 04/11/18 12:29 Vomiting morphine AdvReac Nausea & Verified 04/11/18 12:29 Vomiting Review of Systems ROS Statement: Those systems with pertinent positive or pertinent negative responses have been documented in the HPI. ROS Other: All systems not noted in ROS Statement are negative. Past Medical History Past Medical History: No Reported History Additional Past Medical History / Comment(s): common variable immune deficiency , crohns, colitis History of Any Multi-Drug Resistant Organisms: None Reported Additional Past Surgical History / Comment(s): port placement and removal, port replacement B side Past Anesthesia/Blood Transfusion Reactions: No Reported Reaction Past Psychological History: Bipolar Smoking Status: Former smoker Past Alcohol Use History: None Reported Past Drug Use History: None Reported - Past Family History Mother Family Medical History: AFIB, Diabetes Mellitus, Hyperlipidemia, Hypertension, Osteoarthritis (OA) Additional Family Medical History / Comment(s): skin cancer Father Family Medical History: Cancer, Congestive Heart Failure (CHF), Coronary Artery Disease (CAD), Hypertension Additional Family Medical History / Comment(s): lung cancer General Exam Limitations: no limitations General appearance: alert, in no apparent distress, obese Head exam: Present: atraumatic, normocephalic, normal inspection Eye exam: Present: normal appearance, PERRL, EOMI. Absent: scleral icterus, conjunctival injection, periorbital swelling ENT exam: Present: normal exam, mucous membranes moist Neck exam: Present: normal inspection. Absent: tenderness, meningismus, lymphadenopathy Respiratory exam: Present: normal lung sounds bilaterally. Absent: respiratory distress, wheezes, rales, rhonchi, stridor Cardiovascular Exam: Present: regular rate, normal rhythm, normal heart sounds. Absent: systolic murmur, diastolic murmur, rubs, gallop, clicks GI/Abdominal exam: Present: soft, tenderness, normal bowel sounds. Absent: distended, guarding, rebound, rigid Extremities exam: Present: normal inspection, full ROM, normal capillary refill. Absent: tenderness, pedal edema, joint swelling, calf tenderness Back exam: Present: normal inspection Neurological exam: Present: alert, oriented X3, CN II-XII intact Psychiatric exam: Present: normal affect, normal mood Skin exam: Present: warm, dry, intact, normal color. Absent: rash Course Vital Signs 04/11/18 04/11/18 04/11/18 12:07 13:00 13:30 Temperature 98.6 F Pulse Rate 60 63 59 L Respiratory 18 Rate Blood Pressure 124/82 124/69 120/67 O2 Sat by Pulse 99 95 96 Oximetry 04/11/18 14:00 Temperature Pulse Rate 61 Respiratory Rate Blood Pressure 114/66 O2 Sat by Pulse 96 Oximetry - Reevaluation(s) Reevaluation #1: 04/11/18 14:41 Medical record and prior hospitalization is reviewed, CT is 3 Reevaluation #2: 04/11/18 14:[address] Hurtado regarding patient, okay to follow up in office tomorrow Reevaluation #3: 04/11/18 14:42 Patient states her pain is adequately controlled currently Medical Decision Making - Medical Decision Making 28 female the ER for evaluation of GI bleed bright red blood per rectum, known history of Crohn's and colitis, patient's hemoglobin is improved from prior, pain is controlled and will be discharged home - Lab Data Result diagrams: 04/11/18 12:29 04/11/18 12:29 Lab Results 04/11/18 04/11/18 04/11/18 Range/Units 12:29 12:29 12:29 WBC 10.3 (3.8-10.6) k/uL RBC 4.30 (3.80-5.40) m/uL Hgb 13.1 (11.4-16.0) gm/dL Hct 37.0 (34.0-46.0) % MCV 86.1 (80.0-100.0) fL MCH 30.4 (25.0-35.0) pg MCHC 35.3 (31.0-37.0) g/dL RDW 12.8 (11.5-15.5) % Plt Count 229 (150-450) k/uL Neutrophils % 82 % Lymphocytes % 15 % Monocytes % 2 % Eosinophils % 0 % Basophils % 0 % Neutrophils # 8.4 H (1.3-7.7) k/uL Lymphocytes # 1.6 (1.0-4.8) k/uL Monocytes # 0.2 (0-1.0) k/uL Eosinophils # 0.0 (0-0.7) k/uL Basophils # 0.0 (0-0.2) k/uL PT (9.0-12.0) sec INR (<1.2) APTT (22.0-30.0) sec Sodium 140 (137-145) mmol/L Potassium 4.5 (3.5-5.1) mmol/L Chloride 104 (98-107) mmol/L Carbon Dioxide 23 (22-30) mmol/L Anion Gap 13 mmol/L BUN 13 (7-17) mg/dL Creatinine 0.67 (0.52-1.04) mg/dL Est GFR (CKD-EPI)AfAm >90 (>60 ml/min/1.73 sqM) Est GFR (CKD-EPI)NonAf >90 (>60 ml/min/1.73 sqM) Glucose 129 H (74-99) mg/dL Calcium 9.7 (8.4-10.2) mg/dL Magnesium 2.2 (1.6-2.3) mg/dL Total Bilirubin 0.4 (0.2-1.3) mg/dL AST 19 (14-36) U/L ALT 15 (9-52) U/L Alkaline Phosphatase 49 (38-126) U/L Total Creatine Kinase 30 (30-135) U/L CK-MB (CK-2) 0.2 (0.0-2.4) ng/mL CK-MB (CK-2) Rel Index 0.7 Troponin I <0.012 (0.000-0.034) ng/mL Total Protein 7.2 (6.3-8.2) g/dL Albumin 4.3 (3.5-5.0) g/dL Lipase 121 (23-300) U/L Blood Type Blood Type Recheck Antibody Screen Spec Expiration Date 04/11/18 04/11/18 Range/Units 12:29 12:29 WBC (3.8-10.6) k/uL RBC (3.80-5.40) m/uL Hgb (11.4-16.0) gm/dL Hct (34.0-46.0) % MCV (80.0-100.0) fL MCH (25.0-35.0) pg MCHC (31.0-37.0) g/dL RDW (11.5-15.5) % Plt Count (150-450) k/uL Neutrophils % % Lymphocytes % % Monocytes % % Eosinophils % % Basophils % % Neutrophils # (1.3-7.7) k/uL Lymphocytes # (1.0-4.8) k/uL Monocytes # (0-1.0) k/uL Eosinophils # (0-0.7) k/uL Basophils # (0-0.2) k/uL PT 10.1 (9.0-12.0) sec INR 1.0 (<1.2) APTT 23.3 (22.0-30.0) sec Sodium (137-145) mmol/L Potassium (3.5-5.1) mmol/L Chloride (98-107) mmol/L Carbon Dioxide (22-30) mmol/L Anion Gap mmol/L BUN (7-17) mg/dL Creatinine (0.52-1.04) mg/dL Est GFR (CKD-EPI)AfAm (>60 ml/min/1.73 sqM) Est GFR (CKD-EPI)NonAf (>60 ml/min/1.73 sqM) Glucose (74-99) mg/dL Calcium (8.4-10.2) mg/dL Magnesium (1.6-2.3) mg/dL Total Bilirubin (0.2-1.3) mg/dL AST (14-36) U/L ALT (9-52) U/L Alkaline Phosphatase (38-126) U/L Total Creatine Kinase (30-135) U/L CK-MB (CK-2) (0.0-2.4) ng/mL CK-MB (CK-2) Rel Index Troponin I (0.000-0.034) ng/mL Total Protein (6.3-8.2) g/dL Albumin (3.5-5.0) g/dL Lipase (23-300) U/L Blood Type A Negative Blood Type Recheck No Antibody Screen NEGATIVE Spec Expiration Date 04/14/2018 - 2328 Disposition Clinical Impression: Abdominal pain, Gastrointestinal hemorrhage, History of Crohn's disease Disposition: HOME SELF-CARE Condition: Good Instructions: Gastrointestinal Bleeding (ED), Abdominal Pain (ED) Is patient prescribed a controlled substance at d/c from ED?: No Referrals: Carlos Gipson DO [Primary Care Provider] - 1-2 days
[2018-04-11 12:59] LABS: Basophils % (A) 0 %; Eosinophils % (A) 0 %; HGB 13.1 gm/dL (11.4-16.0); Lymphocytes # (A) 1.6 k/uL (1.0-4.8); Lymphocytes % (A) 15 %; MCH 30.4 pg (25.0-35.0); MCHC 35.3 g/dL (31.0-37.0); MCV 86.1 fL (80.0-100.0); Mean Platelet Volume 6.9; Monocytes # (A) 0.2 k/uL (0-1.0); Monocytes % (A) 2 %; Neutrophils # (A) 8.4 k/uL (1.3-7.7); Neutrophils % (A) 82 %; Platelet Count 229 k/uL (150-450); RDW 12.8 % (11.5-15.5); WBC 10.3 k/uL (3.8-10.6)
[2018-04-11 13:07] LABS: Partial Thromboplastin Time 23.3 sec (22.0-30.0); Prothrombin Time 10.1 sec (9.0-12.0)
[2018-04-11 13:16] LABS: Creatine Kinase 30 U/L (30-135)
[2018-04-11 13:19] LABS: ALT 15 U/L (9-52); AST 19 U/L (14-36); Albumin 4.3 g/dL (3.5-5.0); Alkaline Phosphatase 49 U/L (38-126); Anion Gap 13 mmol/L; Blood Urea Nitrogen 13 mg/dL (7-17); Calcium 9.7 mg/dL (8.4-10.2); Carbon Dioxide 23 mmol/L (22-30); Chloride 104 mmol/L (98-107); Glucose 129 mg/dL (74-99); Lipase 121 U/L (23-300); Magnesium 2.2 mg/dL (1.6-2.3); Potassium 4.5 mmol/L (3.5-5.1); Sodium 140 mmol/L (137-145); Total Bilirubin 0.4 mg/dL (0.2-1.3); Total Protein 7.2 g/dL (6.3-8.2)
[2018-04-11 13:29] LABS: Creatine Kinase MB 0.2 ng/mL (0.0-2.4); Troponin I <0.012 ng/mL (0.000-0.034)
[2018-04-11] MEDS ORDERED: HYDROmorphone 1 MG/ML 1 ML SYRINGE IVP STA (13:35)
[2018-04-11] MEDS ORDERED: PANTOPRAZOLE 40 MG/10 ML VIAL IVP STA (13:35)
[2018-04-11 15:07] VITALS: BP 122/65; PULSE 56; TEMP 97.5
== END 2018-04-11 15:07 | disposition home or self-care (01) ==
LOC: EC 12:02
DX: K92.2 Gastrointestinal hemorrhage, unspecified (principal); F31.9 Bipolar disorder, unspecified; Z87.19 Personal history of other diseases of the digestive system; Z87.891 Personal history of nicotine dependence; Z79.52 Long term (current) use of systemic steroids; Z79.899 Other long term (current) drug therapy; Z88.5 Allergy status to narcotic agent
CPT/HCPCS: 99285; 96374; 96375 ×2; 96361 ×2; 36415; 86900; 86901; 80053; 82550; 82553; 83690; 83735; 84484; 85025; 85610; 85730; 86850; J2405; J1170; C9113

== ENCOUNTER 2018-04-13 11:01 | Day surgery (SDC) | payer MEDICARE, OTHER ==
[2018-04-13] MEDS ORDERED: LACTATED RINGERS 1,000 ML IV SCH (11:08)
[2018-04-13 11:19] VITALS: RESP 16; TEMP 97.6
[2018-04-13] MEDS ORDERED: LIDOCAINE 1% 20 ML VIAL (10MG/ML) FOR IV START INTRADERMA ONE (11:24)
--- NOTE | 2018-04-13 12:46 | P.GSHP ---
History of Present Illness H&P Date: 04/13/18 Chief Complaint: Abdominal pain, diarrhea, GI bleed This is a 37-year-old female who presents today for EGD colonoscopy. Patient has a history of colitis. She's had some rectal bleeding. Past Medical History Past Medical History: No Reported History Additional Past Medical History / Comment(s): common variable immune deficiency , crohns, colitis History of Any Multi-Drug Resistant Organisms: None Reported Additional Past Surgical History / Comment(s): port placement and removal, port replacement B side Past Anesthesia/Blood Transfusion Reactions: No Reported Reaction Past Psychological History: Bipolar Smoking Status: Former smoker Past Alcohol Use History: None Reported Past Drug Use History: None Reported - Past Family History Mother Family Medical History: AFIB, Diabetes Mellitus, Hyperlipidemia, Hypertension, Osteoarthritis (OA) Additional Family Medical History / Comment(s): skin cancer Father Family Medical History: Cancer, Congestive Heart Failure (CHF), Coronary Artery Disease (CAD), Hypertension Additional Family Medical History / Comment(s): lung cancer Medications and Allergies Home Medications Medication Instructions Recorded Confirmed Type FLUoxetine HCL [PROzac] 40 mg PO DAILY 12/02/16 04/13/18 History Hizentra 10gm 10 gm SQ TH 03/31/18 04/13/18 History Levothyroxine Sodium 25 mcg PO DAILY 03/31/18 04/13/18 History Multivitamins, Thera [Multivitamin 1 tab PO DAILY 03/31/18 04/13/18 History (formulary)] Acetaminophen Tab [Tylenol] 650 mg PO Q6HR tab 04/06/18 04/13/18 Rx Pantoprazole Sodium [Protonix] 40 mg PO DAILY #30 tablet. 04/06/18 04/13/18 Rx predniSONE See Taper PO DAILY 04/11/18 04/13/18 History Allergies Allergy/AdvReac Type Severity Reaction Status Date / Time codeine AdvReac Nausea & Verified 04/11/18 12:29 Vomiting morphine AdvReac Nausea & Verified 04/11/18 12:29 Vomiting Surgical - Exam Vital Signs Temp Pulse Resp BP Pulse Ox 97.6 F 75 16 109/56 97 04/13/18 11:15 04/13/18 11:15 04/13/18 11:15 04/13/18 11:15 04/13/18 11:15 - General well developed - Eyes PERRL - ENT normal pinna - Neck no masses - Respiratory normal expansion - Cardiovascular Rhythm: regular - Abdomen Abdomen: soft, non tender Assessment and Plan Assessment: History of GI bleed. EGD and colonoscopy.
[2018-04-13] MEDS ORDERED: GLUCAGON 1 MG/ML VIAL ONE (12:47)
[2018-04-13] MEDS ORDERED: GLYCOPYRROLATE 0.2 MG/ML 2 ML VIAL ONE (12:47)
[2018-04-13] MEDS ORDERED: MIDAZOLAM 2 MG/2 ML VIAL ONE (12:47)
[2018-04-13] MEDS ORDERED: KETAMINE 10 MG/ML 20 ML VIAL ONE (12:47)
[2018-04-13] MEDS ORDERED: PROPOFOL 10 MG/ML 20 ML VIAL IV ONE (12:47)
[2018-04-13] MEDS ORDERED: LIDOCAINE 1% INJ 10MG/ML (20 ML MDV) ONE (12:47)
--- NOTE | 2018-04-13 13:11 | P.OP ---
Date of Procedure: 04/13/18 Preoperative Diagnosis: GI bleed Diarrhea GERD Postoperative Diagnosis: Antral gastritis Hiatal hernia Mild esophagitis Procedure(s) Performed: EGD Colonoscopy Anesthesia: MAC Surgeon: Denis Guerrero Pathology: other (Antrum, esophagus) Condition: stable Disposition: PACU Description of Procedure: Patient's placed on the endoscopy table in the lateral position. She received IV sedation. The gastro-placed oropharynx passed in the esophagus and stomach. Scope was then placed through the pylorus. The first and second portion of the duodenum appeared normal. Scope was then brought back the antrum and this appeared mildly inflamed. A biopsies performed. The scope was then retroflexed and the remainder of the stomach appeared normal. There was a moderate size hiatal hernia. The GE junction was at 40 cm. The distal esophagus appeared minimally inflamed and a biopsies performed. The proximal esophagus appeared normal. The scope was withdrawn for patient. Next digital rectal exam was performed. There were no abnormalities noted. The flexible colonoscope was then placed patient anus and passed throughout the entire colon. The ileocecal valve was visualized. The cecum, ascending and transverse colon appeared normal. In the descending colon a random biopsies performed with the cold forcep. There is known to any significant inflammation. The scope was then brought back the sigmoid colon and a polyp was seen this is removed with the snare. The scope was brought back the rectum and this appeared normal. There is known to any inflammatory changes of the colon.
[2018-04-13 13:42] VITALS: BP 110/71; PULSE 57
== END 2018-04-13 14:23 | disposition home or self-care (01) ==
LOC: ORWHC2ENDO 11:01
PROVIDERS: ATTEND Surgery
DX: K21.0 Gastro-esophageal reflux disease with esophagitis (principal); K44.9 Diaphragmatic hernia without obstruction or gangrene; D12.5 Benign neoplasm of sigmoid colon; K63.5 Polyp of colon; K50.10 Crohn's disease of large intestine without complications; K52.9 Noninfective gastroenteritis and colitis, unspecified; F31.9 Bipolar disorder, unspecified; E07.9 Disorder of thyroid, unspecified; D83.9 Common variable immunodeficiency, unspecified; Z88.5 Allergy status to narcotic agent; Z79.891 Long term (current) use of opiate analgesic; Z87.891 Personal history of nicotine dependence; Z82.49 Family history of ischemic heart disease and other diseases of the circulatory system; Z79.52 Long term (current) use of systemic steroids; Z79.890 Hormone replacement therapy; K31.9 Disease of stomach and duodenum, unspecified
CPT/HCPCS: 81025; 88305; 45380; 45385; 43239; J2250; J1610; J2001; J2704

== ENCOUNTER 2018-04-20 19:36 | Observation (INO) | payer MEDICARE, OTHER ==
--- NOTE | 2018-04-20 20:02 | ED ---
General Adult HPI - General Source: patient, RN notes reviewed Mode of arrival: ambulatory Limitations: no limitations <Guillermo Anaya - Last Filed: 04/20/18 22:39> <Vipul Pizarro - Last Filed: 04/20/18 23:16> - General Chief complaint: Abdominal Pain Stated complaint: Abd pain Time Seen by Provider: 04/20/18 19:47 - History of Present Illness Initial comments: 37-year-old female with a past medical history of Crohn's, common variable immune deficiency, colitis, intussusception presents to the emergency department for a chief complaint of left lower quadrant pain 3 hours. Patient states the pain is a sharp pressure in the left lower quadrant. She states this woke her up from her sleep. Patient states she has been having normal bowel movements with the last bowel movement earlier this morning. She states she has been passing gas. Patient does admit to one episode of vomiting prior to arrival. Patient states she was recently admitted for 30 section and colitis. She states she has been on a steroid taper for this prescribed by Dr. Pimentel. Patient states she also has a headache that gradually came on after this pain started. She denies any neck pain or fevers. She denies being on blood thinners. Patient has no other complaints at this time including shortness of breath, chest pain, or visual changes. (Guillermo Anaya) - Related Data Home Medications Medication Instructions Recorded Confirmed FLUoxetine HCL [PROzac] 40 mg PO DAILY 12/02/16 04/20/18 Hizentra 10gm 10 gm SQ TH 03/31/18 04/20/18 Levothyroxine Sodium 25 mcg PO DAILY 03/31/18 04/20/18 Multivitamins, Thera [Multivitamin 1 tab PO DAILY 03/31/18 04/20/18 (formulary)] predniSONE See Taper PO DAILY 04/11/18 04/20/18 Dicyclomine [Bentyl] 10 mg PO BID 04/20/18 04/20/18 Ondansetron Odt [Zofran Odt] 4 mg PO Q6H PRN 04/20/18 04/20/18 Pantoprazole Sodium [Protonix] 40 mg PO BID 04/20/18 04/20/18 Previous Rx's Medication Instructions Recorded Acetaminophen Tab [Tylenol] 650 mg PO Q6HR tab 04/06/18 Allergies Allergy/AdvReac Type Severity Reaction Status Date / Time codeine AdvReac Nausea & Verified 04/20/18 20:23 Vomiting morphine AdvReac Nausea & Verified 04/20/18 20:23 Vomiting Review of Systems ROS Other: All systems not noted in ROS Statement are negative. <Guillermo Anaya - Last Filed: 04/20/18 22:39> ROS Other: All systems not noted in ROS Statement are negative. <Vipul Pizarro - Last Filed: 04/20/18 23:16> ROS Statement: Those systems with pertinent positive or pertinent negative responses have been documented in the HPI. Past Medical History Past Medical History: GERD/Reflux Additional Past Medical History / Comment(s): common variable immune deficiency , crohns, colitis History of Any Multi-Drug Resistant Organisms: None Reported Additional Past Surgical History / Comment(s): port placement and removal, port replacement B side Past Anesthesia/Blood Transfusion Reactions: No Reported Reaction Past Psychological History: Bipolar Smoking Status: Former smoker Past Alcohol Use History: None Reported Past Drug Use History: None Reported - Past Family History Mother Family Medical History: AFIB, Diabetes Mellitus, Hyperlipidemia, Hypertension, Osteoarthritis (OA) Additional Family Medical History / Comment(s): skin cancer Father Family Medical History: Cancer, Congestive Heart Failure (CHF), Coronary Artery Disease (CAD), Hypertension Additional Family Medical History / Comment(s): lung cancer <Guillermo Anaya P - Last Filed: 04/20/18 22:39> General Exam Limitations: no limitations General appearance: alert, in no apparent distress Head exam: Present: atraumatic, normocephalic, normal inspection Eye exam: Present: normal appearance, PERRL, EOMI. Absent: scleral icterus, conjunctival injection, periorbital swelling ENT exam: Present: normal exam, mucous membranes moist Neck exam: Present: normal inspection, full ROM. Absent: tenderness, meningismus, lymphadenopathy Respiratory exam: Present: normal lung sounds bilaterally. Absent: respiratory distress, wheezes, rales, rhonchi, stridor Cardiovascular Exam: Present: regular rate, normal rhythm, normal heart sounds. Absent: systolic murmur, diastolic murmur, rubs, gallop, clicks GI/Abdominal exam: Present: soft, tenderness (Tenderness noted to the left lower quadrant, rebound), rebound (Rebound tenderness noted to the left lower quadrant), normal bowel sounds. Absent: distended, guarding (No guarding), rigid Neurological exam: Present: alert, oriented X3, CN II-XII intact Psychiatric exam: Present: normal affect, normal mood <Guillermo Anaya - Last Filed: 04/20/18 22:39> Vital Signs 04/20/18 04/20/18 04/20/18 19:40 19:59 20:00 Temperature 97.9 F Pulse Rate 85 Respiratory 18 Rate Blood Pressure 142/85 140/78 O2 Sat by Pulse 99 96 96 Oximetry 04/20/18 04/20/18 04/20/18 20:40 20:50 21:00 Temperature Pulse Rate Respiratory Rate Blood Pressure 122/74 122/74 122/74 O2 Sat by Pulse 97 97 Oximetry 04/20/18 04/20/18 04/20/18 21:10 21:20 21:30 Temperature Pulse Rate Respiratory Rate Blood Pressure 122/74 122/74 122/74 O2 Sat by Pulse 97 96 Oximetry 04/20/18 04/20/18 04/20/18 21:40 21:50 22:00 Temperature Pulse Rate Respiratory Rate Blood Pressure 143/77 143/77 143/77 O2 Sat by Pulse 98 96 95 Oximetry 04/20/18 22:10 Temperature Pulse Rate Respiratory Rate Blood Pressure 106/69 O2 Sat by Pulse 96 Oximetry Medical Decision Making - Lab Data Result diagrams: 04/20/18 20:18 04/20/18 20:18 <Guillermo Anaya - Last Filed: 04/20/18 22:39> - Lab Data Result diagrams: 04/20/18 20:18 04/20/18 20:18 <Vipul Pizarro - Last Filed: 04/20/18 23:16> - Medical Decision Making 37-year-old female presents to the emergency department for a chief complaint of left lower quadrant pain 4 hours. Patient states this woke her up from her sleep. Patient has history of Crohn's, colitis, intussusception, and common variable immune deficiency. Patient receives weekly subcutaneous injections of immune globulin for this. Patient was recently admitted for intussusception and diagnosed with colitis 2 weeks ago. She has been on a steroid taper since that time. Vitals are stable, patient is afebrile. On exam patient is left lower quadrant rebound tenderness. Neurologically intact. Exam otherwise unremarkable. CBC shows a white count 11.9, lactic 2.8. No source of infection at this time. However, blood cultures were drawn. Patient was given 2 L of fluid. CBC and CMP are otherwise unremarkable. Urine does not show any evidence of infection. CT abdomen and pelvis is negative. There is clearing of the minimal large bowel inflammatory changes compared to old exam. At this time given patient's pain as well as history of Crohn's or colitis and common variable immune deficiency it is felt the patient would benefit from inpatient monitoring and treatment at this time. (Guillermo Anaya) I saw this patient in conjunction with the physician executive assistant. I performed independent history and physical exam. Agree with case management. (Vipul Pizarro) - Lab Data Lab Results 04/20/18 04/20/18 04/20/18 Range/Units 20:18 20:18 20:18 WBC 11.9 H (3.8-10.6) k/uL RBC 4.55 (3.80-5.40) m/uL Hgb 13.7 (11.4-16.0) gm/dL Hct 40.4 (34.0-46.0) % MCV 88.8 (80.0-100.0) fL MCH 30.1 (25.0-35.0) pg MCHC 33.9 (31.0-37.0) g/dL RDW 13.1 (11.5-15.5) % Plt Count 233 (150-450) k/uL Neutrophils % 73 % Lymphocytes % 21 % Monocytes % 4 % Eosinophils % 1 % Basophils % 0 % Neutrophils # 8.7 H (1.3-7.7) k/uL Lymphocytes # 2.5 (1.0-4.8) k/uL Monocytes # 0.4 (0-1.0) k/uL Eosinophils # 0.1 (0-0.7) k/uL Basophils # 0.0 (0-0.2) k/uL Sodium 139 (137-145) mmol/L Potassium 4.7 (3.5-5.1) mmol/L Chloride 101 (98-107) mmol/L Carbon Dioxide 25 (22-30) mmol/L Anion Gap 13 mmol/L BUN 19 H (7-17) mg/dL Creatinine 0.72 (0.52-1.04) mg/dL Est GFR (CKD-EPI)AfAm >90 (>60 ml/min/1.73 sqM) Est GFR (CKD-EPI)NonAf >90 (>60 ml/min/1.73 sqM) Glucose 149 H (74-99) mg/dL Plasma Lactic Acid Keith (0.7-2.0) mmol/L Calcium 9.8 (8.4-10.2) mg/dL Total Bilirubin 0.3 (0.2-1.3) mg/dL AST 26 (14-36) U/L ALT 21 (9-52) U/L Alkaline Phosphatase 47 (38-126) U/L Total Protein 7.3 (6.3-8.2) g/dL Albumin 4.4 (3.5-5.0) g/dL Amylase 37 (30-110) U/L Lipase 130 (23-300) U/L Urine Color Colorless Urine Appearance Clear (Clear) Urine pH 5.0 (5.0-8.0) Ur Specific [place] 1.005 (1.001-1.035) Urine Protein Negative (Negative) Urine Glucose (UA) Negative (Negative) Urine Ketones Negative (Negative) Urine Blood Trace H (Negative) Urine Nitrite Negative (Negative) Urine Bilirubin Negative (Negative) Urine Urobilinogen <2.0 (<2.0) mg/dL Ur Leukocyte Esterase Negative (Negative) Urine WBC 1 (0-5) /hpf Ur Squamous Epith Cells <1 (0-4) /hpf Urine HCG, Qual (Not Detectd) 04/20/18 04/20/18 Range/Units 20:19 20:19 WBC (3.8-10.6) k/uL RBC (3.80-5.40) m/uL Hgb (11.4-16.0) gm/dL Hct (34.0-46.0) % MCV (80.0-100.0) fL MCH (25.0-35.0) pg MCHC (31.0-37.0) g/dL RDW (11.5-15.5) % Plt Count (150-450) k/uL Neutrophils % % Lymphocytes % % Monocytes % % Eosinophils % % Basophils % % Neutrophils # (1.3-7.7) k/uL Lymphocytes # (1.0-4.8) k/uL Monocytes # (0-1.0) k/uL Eosinophils # (0-0.7) k/uL Basophils # (0-0.2) k/uL Sodium (137-145) mmol/L Potassium (3.5-5.1) mmol/L Chloride (98-107) mmol/L Carbon Dioxide (22-30) mmol/L Anion Gap mmol/L BUN (7-17) mg/dL Creatinine (0.52-1.04) mg/dL Est GFR (CKD-EPI)AfAm (>60 ml/min/1.73 sqM) Est GFR (CKD-EPI)NonAf (>60 ml/min/1.73 sqM) Glucose (74-99) mg/dL Plasma Lactic Acid Keith 2.8 H* (0.7-2.0) mmol/L Calcium (8.4-10.2) mg/dL Total Bilirubin (0.2-1.3) mg/dL AST (14-36) U/L ALT (9-52) U/L Alkaline Phosphatase (38-126) U/L Total Protein (6.3-8.2) g/dL Albumin (3.5-5.0) g/dL Amylase (30-110) U/L Lipase (23-300) U/L Urine Color Urine Appearance (Clear) Urine pH (5.0-8.0) Ur Specific [place] (1.001-1.035) Urine Protein (Negative) Urine Glucose (UA) (Negative) Urine Ketones (Negative) Urine Blood (Negative) Urine Nitrite (Negative) Urine Bilirubin (Negative) Urine Urobilinogen (<2.0) mg/dL Ur Leukocyte Esterase (Negative) Urine WBC (0-5) /hpf Ur Squamous Epith Cells (0-4) /hpf Urine HCG, Qual Not Detected (Not Detectd) Disposition Time of Disposition: 22:52 <Guillermo Anaya - Last Filed: 04/20/18 22:39> <Vipul Pizarro - Last Filed: 04/20/18 23:16> Clinical Impression: Abdominal pain, History of Crohn's disease, Common variable immunodeficiency Disposition: ADMITTED IP TO THIS [facility] Condition: Good
[2018-04-20] MEDS ORDERED: ONDANSETRON 4 MG/2 ML VIAL IVP STA (20:18)
[2018-04-20] MEDS ORDERED: SODIUM CHLORIDE 0.9% 1,000 ML IV STA ×2 (20:18→22:38)
[2018-04-20] MEDS ORDERED: KETOROLAC 30 MG/ML 1 ML VIAL IVP STA (20:19)
[2018-04-20 20:34] LABS: Basophils % (A) 0 %; Eosinophils # (A) 0.1 k/uL (0-0.7); Eosinophils % (A) 1 %; HCT 40.4 % (34.0-46.0); HGB 13.7 gm/dL (11.4-16.0); Lymphocytes # (A) 2.5 k/uL (1.0-4.8); Lymphocytes % (A) 21 %; MCH 30.1 pg (25.0-35.0); MCHC 33.9 g/dL (31.0-37.0); MCV 88.8 fL (80.0-100.0); Mean Platelet Volume 7.1; Monocytes # (A) 0.4 k/uL (0-1.0); Monocytes % (A) 4 %; Neutrophils # (A) 8.7 k/uL (1.3-7.7); Neutrophils % (A) 73 %; Platelet Count 233 k/uL (150-450); RBC 4.55 m/uL (3.80-5.40); RDW 13.1 % (11.5-15.5); WBC 11.9 k/uL (3.8-10.6)
[2018-04-20 20:43] LABS: ALT 21 U/L (9-52); AST 26 U/L (14-36); Albumin 4.4 g/dL (3.5-5.0); Alkaline Phosphatase 47 U/L (38-126); Amylase 37 U/L (30-110); Anion Gap 13 mmol/L; Blood Urea Nitrogen 19 mg/dL (7-17); Calcium 9.8 mg/dL (8.4-10.2); Carbon Dioxide 25 mmol/L (22-30); Chloride 101 mmol/L (98-107); Glucose 149 mg/dL (74-99); Lipase 130 U/L (23-300); Potassium 4.7 mmol/L (3.5-5.1); Sodium 139 mmol/L (137-145); Total Bilirubin 0.3 mg/dL (0.2-1.3); Total Protein 7.3 g/dL (6.3-8.2)
[2018-04-20 20:56] LABS: Appearance,Urine Clear (Clear); Bilirubin,Urine Negative (Negative); Blood,Urine Trace (Negative); Color,Urine Colorless; Glucose,Urine (UA) Negative (Negative); Ketones,Urine Negative (Negative); Leukocyte Esterase,Urine Negative (Negative); Nitrite,Urine Negative (Negative); Protein,Urine Negative (Negative); Specific Gravity,Urine 1.005 (1.001-1.035); Squamous Epithelial Cell,Urine <1 /hpf (0-4); Urobilinogen,Urine <2.0 mg/dL (<2.0); WBC,Urine 1 /hpf (0-5)
[2018-04-20] MEDS ORDERED: HYDROmorphone 1 MG/ML 1 ML SYRINGE IVP STA ×3 (21:07→22:43)
--- NOTE | 2018-04-20 21:26 | CT ---
EXAMINATION TYPE: CT abdomen pelvis w con DATE OF EXAM: 04/20/2018 COMPARISON: 04/05/2018 HISTORY: abdominal pain, nausea, vomiting CT DLP: 1466.8 mGycm Automated exposure control for dose reduction was used. TECHNIQUE: Helical acquisition of images was performed from the lung bases through the pelvis. CONTRAST: Performed without Oral Contrast and with IV Contrast, patient injected with 100 mL of Isovue 370. FINDINGS: Lung bases are clear. There is no pleural effusion. Heart size is normal. There is no pericardial eff usion. Stomach appears normal. Liver shows no focal defect. Spleen appears normal. There is no pancre atic mass. Gallbladder is contracted. There is no adrenal mass. Kidneys show satisfactory contrast op acification. There is no hydronephrosis. There is no retroperitoneal adenopathy. There is no mesenter ic edema or adenopathy. Bladder distends smoothly. Uterus is anteverted. There is no inguinal hernia. There is no free fluid in the pelvis. I see no intestinal wall thickening. There are no dilated loop s. Appendix appears normal. Lumbar vertebra have normal spacing and alignment. Bony pelvis is intact. IMPRESSION: NEGATIVE CT SCAN OF THE ABDOMEN AND PELVIS. THERE IS CLEARING OF THE PLEURAL EFFUSIONS COMPARED TO OL D EXAM. THERE IS CLEARING OF THE MINIMAL LARGE BOWEL INFLAMMATORY CHANGES COMPARED TO OLD EXAM. NO ME SENTERIC EDEMA OR ADENOPATHY. NORMAL APPENDIX. THERE IS CLEARING OF THE SUBCUTANEOUS EDEMA OVER THE L UMBAR SPINE COMPARED TO OLD EXAM.
[2018-04-20] MEDS ORDERED: METOCLOPRAMIDE 5 MG/ML 2 ML VIAL IVP STA (22:38)
[2018-04-20] MEDS ORDERED: diphenhydrAMINE 25 MG CAP PO STA (22:38)
[2018-04-20] MEDS ORDERED: NALOXONE 0.4 MG/ML 1 ML VIAL IV PRN (22:53)
[2018-04-20] MEDS: SODIUM CHLORIDE 0.9% 1,000 ML IV SCH (23:54)
[2018-04-21] MEDS ORDERED: HIZENTRA SQ SCH (00:15)
[2018-04-21 00:23] VITALS: BMI 34.8
[2018-04-21] MEDS: HYDROmorphone 1 MG/ML 1 ML SYRINGE IVP PRN ×3 (03:57→10:44)
[2018-04-21] MEDS: LEVOTHYROXINE 25 MCG TAB PO SCH (06:23)
[2018-04-21] MEDS: ONDANSETRON 4 MG/2 ML VIAL IVP PRN ×3 (06:24→23:30)
[2018-04-21] MEDS: PANTOPRAZOLE 40 MG TABLET PO SCH ×2 (07:35→17:31)
[2018-04-21] MEDS: FLUoxetine HCL 20 MG CAP PO SCH (07:35)
[2018-04-21] MEDS: SODIUM CHLORIDE 0.9% 1,000 ML IV SCH ×3 (07:39→23:29)
[2018-04-21] MEDS ORDERED: DICYCLOMINE 10 MG CAP PO SCH (09:00)
--- NOTE | 2018-04-21 11:10 | P.CONS ---
History of Present Illness - Reason for Consult Consult date: 04/21/18 Abdominal pain history of Crohn's Requesting physician: Vicente Garcia - Chief Complaint Abdominal pain nausea vomiting - History of Present Illness 37-year-old female with a history of common variable immunodeficiency, reported Crohn's disease diagnosed several years ago at outside facility, bipolar depression admitted a few weeks ago with left-sided abdominal pain dull sometimes sharp with nausea vomiting. CT of the abdomen at that time showed intussusception of small bowel polyp CT showed resolution however showed an area of colitis possible exacerbation of IBD. Sed rate CRP unremarkable. Patient was given a trial of oral steroids with improvement of pain. C. diff testing was negative. Patient was advised to follow with the GI office on April 26 however her pain persisted and she underwent a colonoscopy EGD evaluation by general surgery in 04/13/2018. EGD reported antral gastritis hiatal hernia mild esophagitis colonoscopy without significant inflammation. Left colon polypectomy tubular adenoma colon biopsies negative for active colitis. Readmitted yesterday with persistent left-sided abdominal pain nausea vomiting. She was prescribed Bentyl last Wednesday with slight improvement in diarrhea not so much with her pain. CT abdomen and pelvis yesterday showed improvement of colitis previously seen on exam. No mesenteric edema or adenopathy. Normal appendix. White count 11.9. Hemoglobin 13.7. Lactic acid 2.8 with hydration 1.9. BUN 19. Creatinine 0.7, LFTs amylase lipase within normal limits. Review of Systems Constitutional: Denies fever, chills, sweats, weight gain, or loss. HEENT: Negative for migraines, blurred vision or loss, earaches, drainage, tinnitus, oral mucosal lesions, dysphagia, or odynophagia. CARDIAC: Negative for chest pain, arrhythmias, or palpitation. RESPIRATORY: Negative for shortness of breath, hemoptysis, cough, or sputum production. GI: See HPI for pertinent findings. : Negative for hematuria, urgency, frequency, polyuria, or dysuria. GYNc: Denies possibility of . Negative vaginal discharge. MUSCULOSKELETAL: Negative for muscle aches, swelling, arthritis, and arthralgias. NEUROLOGIC: Negative for stroke or TIA. ENDOCRINE: Negative for thyroid problems. SKIN: Negative for rash or itching. PSYCHIATRIC: History of bipolar depression. Past Medical History Past Medical History: GERD/Reflux Additional Past Medical History / Comment(s): common variable immune deficiency , crohns, colitis History of Any Multi-Drug Resistant Organisms: None Reported Additional Past Surgical History / Comment(s): port placement and removal, port replacement B side Past Anesthesia/Blood Transfusion Reactions: No Reported Reaction Past Psychological History: Bipolar Additional Psychological History / Comment(s): . Disabled. History of tobacco use. No experience. No recent international travel. Stepchild present on a visiting basis. No animals related in the home Smoking Status: Former smoker Past Alcohol Use History: None Reported Past Drug Use History: None Reported - Past Family History Mother Family Medical History: AFIB, Diabetes Mellitus, Hyperlipidemia, Hypertension, Osteoarthritis (OA) Additional Family Medical History / Comment(s): skin cancer Father Family Medical History: Cancer, Congestive Heart Failure (CHF), Coronary Artery Disease (CAD), Hypertension Additional Family Medical History / Comment(s): lung cancer Medications and Allergies Home Medications Medication Instructions Recorded Confirmed Type FLUoxetine HCL [PROzac] 40 mg PO DAILY 12/02/16 04/20/18 History Hizentra 10gm 10 gm SQ TH 03/31/18 04/20/18 History Levothyroxine Sodium 25 mcg PO DAILY 03/31/18 04/20/18 History Multivitamins, Thera [Multivitamin 1 tab PO DAILY 03/31/18 04/20/18 History (formulary)] Acetaminophen Tab [Tylenol] 650 mg PO Q6HR tab 04/06/18 04/20/18 Rx predniSONE See Taper PO DAILY 04/11/18 04/20/18 History Ondansetron Odt [Zofran ODT] 4 mg PO Q6H PRN 04/20/18 04/20/18 History Pantoprazole Sodium [Protonix] 40 mg PO BID 04/20/18 04/20/18 History Dicyclomine [Bentyl] 10 mg PO QID #120 cap 04/22/18 Rx Allergies Allergy/AdvReac Type Severity Reaction Status Date / Time codeine AdvReac Nausea & Verified 04/20/18 20:23 Vomiting morphine AdvReac Nausea & Verified 04/20/18 20:23 Vomiting Physical Exam Vitals: Vital Signs Temp Pulse Pulse Resp BP BP Pulse Ox 04/21/18 05:00 97.5 F L 64 16 108/71 98 04/21/18 00:17 97.4 F L 64 16 117/75 95 04/21/18 00:00 64 16 04/20/18 23:10 121/75 95 04/20/18 23:00 98.5 F 04/20/18 22:40 125/72 95 04/20/18 22:20 106/69 97 04/20/18 22:10 106/69 96 04/20/18 22:00 143/77 95 04/20/18 21:50 143/77 96 04/20/18 21:40 143/77 98 04/20/18 21:30 122/74 96 04/20/18 21:20 122/74 97 04/20/18 21:10 122/74 04/20/18 21:00 122/74 04/20/18 20:50 122/74 97 04/20/18 20:40 122/74 97 04/20/18 20:00 140/78 96 04/20/18 19:59 96 04/20/18 19:40 97.9 F 85 18 142/85 99 Intake and Output 04/20/18 04/21/18 04/21/18 22:59 06:59 14:59 Intake Total 1120 Balance 1120 Intake: Intake, IV Titration 700 Amount Sodium Chloride 0.9% 1, 700 000 ml @ 120 mls/hr IV . Q8H20M [facility] Rx#:[id number] Oral 420 Other: Weight 113.398 kg 113.39 kg General appearance: The patient is alert, oriented, in no acute distress. HET: Head is normocephalic and atraumatic. Pupils are equal and reactive. Oropharynx is clear without lesions. Neck: Supple without lymphadenopathy. Trachea midline. Heart: S1 S2. Regular rate and rhythm. Lungs: No crackles or wheezes are heard. Abdomen: Soft, tenderness left mid quadrant left lower quadrant hypoactive bowel sounds nondistended soft. No peritoneal signs. No palpable organomegaly or masses. Extremities: Normal skin color and turgor. No cyanosis, rash, ulceration, clubbing, or edema. Radial and pedal pulses are 2/4 bilaterally. Neurological: No focal deficits. Strength and sensation are grossly intact. Results CBC & Chem 7: 04/20/18 20:18 04/20/18 20:18 Labs: Abnormal Lab Results - Last 24 Hours (Table) 04/20/18 04/20/18 04/20/18 Range/Units 20:18 20:18 20:18 WBC 11.9 H (3.8-10.6) k/uL Neutrophils # 8.7 H (1.3-7.7) k/uL BUN 19 H (7-17) mg/dL Glucose 149 H (74-99) mg/dL Plasma Lactic Acid Keith (0.7-2.0) mmol/L Urine Blood Trace H (Negative) 04/20/18 Range/Units 20:19 WBC (3.8-10.6) k/uL Neutrophils # (1.3-7.7) k/uL BUN (7-17) mg/dL Glucose (74-99) mg/dL Plasma Lactic Acid Keith 2.8 H* (0.7-2.0) mmol/L Urine Blood (Negative) Microbiology - Last 24 Hours (Table) 04/20/18 22:38 Urine Culture - Preliminary Urine,Clean Catch CT scan - abdomen: report reviewed (Dr. Chopra) Assessment and Plan (1) Abdominal pain Narrative/Plan: 37-year-old female with a history of CVIG and reported Crohn's history diagnosis outside facility several years ago presents with persistent left- sided abdominal pain nausea vomiting loose nonbloody bowel movements. Recently hospitalized possible small bowel intussusception possible inflammatory colitis possible self limiting infectious colitis with a suspected underlying exacerbation of irritable bowel syndrome-D. Current Visit: Yes Status: Acute Code(s): R10.9 - UNSPECIFIED ABDOMINAL PAIN SNOMED Code(s): 26844952 (2) Common variable immunodeficiency Current Visit: Yes Status: Acute Code(s): D83.9 - COMMON VARIABLE IMMUNODEFICIENCY, UNSPECIFIED SNOMED Code(s): 38243682 (3) History of Crohn's disease Current Visit: Yes Status: Acute Code(s): Z87.19 - PERSONAL HISTORY OF OTHER DISEASES OF THE DIGESTIVE SYSTEM SNOMED Code(s): 197449878737307 (4) Depressive disorder Current Visit: No Status: Acute Code(s): F32.9 - MAJOR DEPRESSIVE DISORDER, SINGLE EPISODE, UNSPECIFIED SNOMED Code(s): 66837819 Plan: 1. Status post colonoscopy a week ago biopsies negative for active colitis. Continue with Bentyl 10 mg 4 times a day. GI prophylaxis. Will obtain fecal calprotectin, ASCA and p-ANCA serology. She is scheduled to follow up with Dr. Pimentel April 26. We'll continue to follow with you. General surgical consult. Diet per surgery. Thank you for this kind referral and the opportunity to participate in the care of your patient. This consultation was discussed with Dr. Chopra. The impression and plan of care have been directed as dictated.
--- NOTE | 2018-04-21 11:44 | P.HPIM ---
<Ayan Forte - Last Filed: 04/21/18 11:32> History of Present Illness H&P Date: 04/21/18 Review of Systems CONSTITUTIONAL: Mildly overweight Well-developed no acute respiratory distress. EYES: No icterus sclerae, no conjunctivitis. EARS, NOSE, MOUTH, THROAT, and FACE: No sore throat, lymphadenopathy, carotid bruits or deformity. RESPIRATORY: No SOB cough or wheezes. CARDIOVASCULAR: No CP, Palpitation, PND, Orthopnea, or angina. GASTROINTESTINAL: Positive abdominal pain with nausea vomiting, known to have a BSD, also patient has pelvic pain mild frequency. GENITOURINARY: Negative for Hematuria or UTI, no kidney stones. INTEGUMENT/BREAST: Negative for any muscular injury with mild osteoarthritis.. HEMATOLOGIC/LYMPHATIC: Negative for bleed or purpura. MUSCULOSKELTAL: Negative for Myalgia or arthralgia. NEURLOGICAL: No LOC, Sz or syncope, blurred vision dizziness or abnormality.. BEHAVIORAL/PSYCH: Negative. ENDOCRINE: Negative. Medications and Allergies Home Medications Medication Instructions Recorded Confirmed Type FLUoxetine HCL [PROzac] 40 mg PO DAILY 12/02/16 04/20/18 History Hizentra 10gm 10 gm SQ TH 03/31/18 04/20/18 History Levothyroxine Sodium 25 mcg PO DAILY 03/31/18 04/20/18 History Multivitamins, Thera [Multivitamin 1 tab PO DAILY 03/31/18 04/20/18 History (formulary)] Acetaminophen Tab [Tylenol] 650 mg PO Q6HR tab 04/06/18 04/20/18 Rx predniSONE See Taper PO DAILY 04/11/18 04/20/18 History Ondansetron Odt [Zofran ODT] 4 mg PO Q6H PRN 04/20/18 04/20/18 History Pantoprazole Sodium [Protonix] 40 mg PO BID 04/20/18 04/20/18 History Dicyclomine [Bentyl] 10 mg PO QID #120 cap 04/22/18 Rx Allergies Allergy/AdvReac Type Severity Reaction Status Date / Time codeine AdvReac Nausea & Verified 04/20/18 20:23 Vomiting morphine AdvReac Nausea & Verified 04/20/18 20:23 Vomiting Physical Exam Vitals: Vital Signs Temp Pulse Pulse Resp BP BP Pulse Ox 04/21/18 05:00 97.5 F L 64 16 108/71 98 04/21/18 00:17 97.4 F L 64 16 117/75 95 04/21/18 00:00 64 16 04/20/18 23:10 121/75 95 04/20/18 23:00 98.5 F 04/20/18 22:40 125/72 95 04/20/18 22:20 106/69 97 04/20/18 22:10 106/69 96 04/20/18 22:00 143/77 95 04/20/18 21:50 143/77 96 04/20/18 21:40 143/77 98 04/20/18 21:30 122/74 96 04/20/18 21:20 122/74 97 04/20/18 21:10 122/74 04/20/18 21:00 122/74 04/20/18 20:50 122/74 97 04/20/18 20:40 122/74 97 04/20/18 20:00 140/78 96 04/20/18 19:59 96 04/20/18 19:40 97.9 F 85 18 142/85 99 Intake and Output 04/20/18 04/21/18 04/21/18 22:59 06:59 14:59 Intake Total 1120 Balance 1120 Intake: Intake, IV Titration 700 Amount Sodium Chloride 0.9% 1, 700 000 ml @ 120 mls/hr IV . Q8H20M [facility] Rx#:[id number] Oral 420 Other: Weight 113.398 kg 113.39 kg General Appearance: Overweight, Alert, cooperative, no distress, appears stated age. Neck HEENT: Supple, no lymphadenopathy, no thyroid enlargement, no carotid bruits. Lungs: Clear to auscultation without crackles or wheezes no rhonchi, no deformity. Chest Wall: Chest wall normal expansion with deep inspiration no tenderness and no deformity was found on exam, no costochondral pain or discomfort. Heart: Regular rate and rhythm, S1, S2 normal, no murmur, rub or gallop. Back: Symmetric, no curvature, ROM normal, no CVA tenderness. Abdomen: Soft, positive bowel sounds, slight tenderness in the left lower quadrant area and more toward the pelvic and abdominal region, no sign of rash or change on the surface part of the skin, no sign of hernia Extremities: Extremities normal, atraumatic, no cyanosis or edema. Pulses: 2+ and symmetric. Skin: Skin color, texture, tugor normal, no rashes or lesions. Neurologic: Alert oriented x3 cranial nerves II through XII intact, no motor deficit, no abnormal balance or gait. Results CBC & Chem 7: 04/20/18 20:18 04/20/18 20:18 Labs: Abnormal Lab Results - Last 24 Hours (Table) 04/20/18 04/20/18 04/20/18 Range/Units 20:18 20:18 20:18 WBC 11.9 H (3.8-10.6) k/uL Neutrophils # 8.7 H (1.3-7.7) k/uL BUN 19 H (7-17) mg/dL Glucose 149 H (74-99) mg/dL Plasma Lactic Acid Keith (0.7-2.0) mmol/L Urine Blood Trace H (Negative) 04/20/18 Range/Units 20:19 WBC (3.8-10.6) k/uL Neutrophils # (1.3-7.7) k/uL BUN (7-17) mg/dL Glucose (74-99) mg/dL Plasma Lactic Acid Keith 2.8 H* (0.7-2.0) mmol/L Urine Blood (Negative) Microbiology - Last 24 Hours (Table) 04/20/18 22:38 Urine Culture - Preliminary Urine,Clean Catch Thrombosis Risk Factor Assmnt - DVT/VTE Prophylaxis DVT/VTE Prophylaxis: Pharmacologic Prophylaxis ordered, Mechanical Prophylaxis ordered Assessment and Plan Assessment: 1 severe abdominal pain: Still not clear etiology, patient was seen gastroenterology and general surgery from last time, multiple CAT scan EGD and colonoscopy done no major finding at this time. Her pathology from colonoscopy did not provide more data for colitis even though patient has history of Crohn disease according to her last gastroneurologist [place] city. Waiting for results of pathology from her last colonoscopy to decide on further management for acute on chronic colitis. 2 pelvic pain: Not a clear etiology whether it's related to IBSD or interstitial cystitis or possible endometriosis or any finding consistent with OTHER [employer] WORK[employer] not clear this point, will request transvaginal ultrasound and awaiting for clean catch urine test with culture. 3 intractable nausea vomiting: Patient is on hydration continue antiarrhythmic medication with Zofran as needed basis for now. 4 severe pain and chronic pain management: This continue Dilaudid IV patient remain on hydrocodone orally along with Toradol. Try to limit 8 all IV pain meds if possible Underlying mild muscle relaxer as well and anti-spastic agent. 5 chronic history of primary immunodeficiency: Has been seen one of the rehabilitation services manager down in the [facility] and She is on Hizentra along with prednisone 10 mg a day continue medication. 6 chronic depression: Has been on Prozac 40 mg a day. 7 severe GERD and mild hiatal hernia: Has been on pantoprazole 40 mg a day. 8 hypothyroidism: Continue patient on Synthroid 25 g daily. 8 GI prophylaxis: Continue pantoprazole. 9 DVT prophylaxis: Patient is on knee-high CAROL hose and Venodyne boots and early mobilization. CODE STATUS: Full code. Admit patient to observation status for 1-2 nights. <Eden Kennedy A - Last Filed: 04/22/18 14:27> History of Present Illness H&P Date: 04/21/18 Chief Complaint: abdominal pain This is a 37-year-old female patient of Dr. Gipson with past medical history for common variable immunodeficiency, possible Crohn's disease, gastroesophageal reflux disease, bipolar disorder. patient was recently admitted under a different service a few weeks ago with left-sided abdominal pain dull sometimes sharp with nausea and vomiting. CT of the abdomen at that time showed intussusception of small bowel polyp CT showed resolution however showed an area of colitis possible exacerbation of IBD. Sed rate CRP unremarkable. Patient was given a trial of oral steroids with improvement of pain. C. diff testing was negative. Patient was stabilized and discharged home with plan for follow-up with the GI office on April 26 however her pain persisted and she underwent a colonoscopy EGD evaluation by general surgery in 04/13/2018. EGD reported antral gastritis hiatal hernia mild esophagitis colonoscopy without significant inflammation. Left colon polypectomy tubular adenoma colon biopsies negative for active colitis.patient presented back to the emergency center due to left-sided abdominal pain along with nausea and vomiting. CT abdomen and pelvis yesterday showed improvement of colitis previously seen on exam. No mesenteric edema or adenopathy. Normal appendix. White count 11.9. Hemoglobin 13.7. Lactic acid 2.8 with hydration 1.9. BUN 19. Creatinine 0.7, LFTs amylase lipase within normal limits. Patient was placed on the Medr floor and consult requested with GI and general surgery. Review of Systems Constitutional: Denies chills, Denies fever Eyes: denies blurred vision, denies pain Ears, nose, mouth and throat: Denies headache, Denies sore throat Cardiovascular: Denies chest pain, Denies shortness of breath Respiratory: Denies cough Gastrointestinal: Denies abdominal pain, Denies diarrhea, Denies nausea, Denies vomiting Genitourinary: Denies dysuria, Denies hematuria Musculoskeletal: Denies myalgias Integumentary: Denies pruritus, Denies rash Neurological: Denies numbness, Denies weakness Psychiatric: Denies anxiety, Denies depression Endocrine: Denies fatigue, Denies weight change Past Medical History Past Medical History: GERD/Reflux Additional Past Medical History / Comment(s): common variable immune deficiency , crohns, colitis History of Any Multi-Drug Resistant Organisms: None Reported Additional Past Surgical History / Comment(s): port placement and removal, port replacement B side Past Anesthesia/Blood Transfusion Reactions: No Reported Reaction Past Psychological History: Bipolar Additional Psychological History / Comment(s): . Disabled. History of tobacco use. No experience. No recent international travel. Stepchild present on a visiting basis. No animals related in the home Smoking Status: Former smoker Past Alcohol Use History: None Reported Past Drug Use History: None Reported - Past Family History Mother Family Medical History: AFIB, Diabetes Mellitus, Hyperlipidemia, Hypertension, Osteoarthritis (OA) Additional Family Medical History / Comment(s): skin cancer Father Family Medical History: Cancer, Congestive Heart Failure (CHF), Coronary Artery Disease (CAD), Hypertension Additional Family Medical History / Comment(s): lung cancer Physical Exam Vitals: Vital Signs Temp Pulse Pulse Resp BP BP Pulse Ox 04/21/18 05:00 97.5 F L 64 16 108/71 98 04/21/18 00:17 97.4 F L 64 16 117/75 95 04/21/18 00:00 64 16 04/20/18 23:10 121/75 95 04/20/18 23:00 98.5 F 04/20/18 22:40 125/72 95 04/20/18 22:20 106/69 97 04/20/18 22:10 106/69 96 04/20/18 22:00 143/77 95 04/20/18 21:50 143/77 96 04/20/18 21:40 143/77 98 04/20/18 21:30 122/74 96 04/20/18 21:20 122/74 97 18 21:10 122/74 18 21:00 122/74 04/20/18 20:50 122/74 97 04/20/18 20:40 122/74 97 04/20/18 20:00 140/78 96 04/20/18 19:59 96 04/20/18 19:40 97.9 F 85 18 142/85 99 Intake and Output 04/20/18 04/21/18 04/21/18 22:59 06:59 14:59 Intake Total 1120 Balance 1120 Intake: Intake, IV Titration 700 Amount Sodium Chloride 0.9% 1, 700 000 ml @ 120 mls/hr IV . Q8H20M [facility] Rx#:[id number] Oral 420 Other: Weight 113.398 kg 113.39 kg Results CBC & Chem 7: 04/20/18 20:18 04/20/18 20:18 Labs: Abnormal Lab Results - Last 24 Hours (Table) 04/20/18 04/20/18 04/20/18 Range/Units 20:18 20:18 20:18 WBC 11.9 H (3.8-10.6) k/uL Neutrophils # 8.7 H (1.3-7.7) k/uL BUN 19 H (7-17) mg/dL Glucose 149 H (74-99) mg/dL Plasma Lactic Acid Keith (0.7-2.0) mmol/L Urine Blood Trace H (Negative) 04/20/18 Range/Units 20:19 WBC (3.8-10.6) k/uL Neutrophils # (1.3-7.7) k/uL BUN (7-17) mg/dL Glucose (74-99) mg/dL Plasma Lactic Acid Keith 2.8 H* (0.7-2.0) mmol/L Urine Blood (Negative) Thrombosis Risk Factor Assmnt - Choose All That Apply Any of the Below Risk Factors Present?: Yes Each Factor Represents 1 point: Obesity (BMI >25) Other Risk Factors: No Other congenital or acquired thrombophilia - If yes, enter type in comment: No Thrombosis Risk Factor Assessment Total Risk Factor Score: 1 Thrombosis Risk Factor Assessment Level: Low Risk
[2018-04-21] MEDS: DICYCLOMINE 10 MG CAP PO SCH ×3 (13:34→23:30)
[2018-04-21] MEDS: predniSONE 10 MG TAB PO SCH (13:34)
[2018-04-21] MEDS: MULTIVITAMINS, THERA 1 EACH TAB PO SCH (13:34)
[2018-04-21] MEDS: HYDROcodone/APAP 5-325MG 1 EACH TAB PO PRN ×2 (13:36→19:36)
--- NOTE | 2018-04-21 15:28 | P.GSCN ---
History of Present Illness Consult date: 04/21/18 Reason for Consult: Left-sided abdominal pain History of present illness: 37-year-old female presented to the emergency room to be evaluated for left- sided abdominal wall pain described as sharp sensation associated with nausea and vomiting patient stated that it came on suddenly woke her up. Patient stated that she did see the surgeon in the outpatient setting and on April 13 did undergo an EGD reviewing the report indicated there was mild esophagitis, hiatal hernia, antral gastritis. A colonoscopy was done the same time the report indicated no inflammatory changes in the colon patient states additionally she did see the GI doctor was started on Bentyl last Wednesday as well as trial dose of steroids. Patient stated there was a slight improvement in her symptoms. Continues to have episodes of left lower quadrant abdominal pain. She describes it as a dull sometimes sharp sensation. IV pain medication effective reduces the pain according to the patient. Patient was recently hospitalized at that time had a CAT scan which did show intussusception of the small bowel. Repeat CAT scan showed resolution. The left colon polypectomy tubular adenoma colon biopsies were negative for active colitis. Labs have been reviewed C. diff testing negative sed rate and CRP unremarkable. Patient does give a history of having reported Crohn's disease diagnosed several years ago at another facility, bipolar depressive disorder, common variable immunodeficiency disorder Last admission the patient is part of the workup did undergo a HIDA scan reviewing the report showed hypercontractile state suggested EF 96% CAT scan obtained this admission in the emergency room reviewing the report negative CAT scan of the abdomen and pelvis normal appendix Review of Systems Essentially unremarkable except as mentioned in the present illness Past Medical History Past Medical History: GERD/Reflux Additional Past Medical History / Comment(s): common variable immune deficiency , crohns, colitis History of Any Multi-Drug Resistant Organisms: None Reported Additional Past Surgical History / Comment(s): port placement and removal, port replacement B side Past Anesthesia/Blood Transfusion Reactions: No Reported Reaction Past Psychological History: Bipolar Additional Psychological History / Comment(s): . Disabled. History of tobacco use. No experience. No recent international travel. Stepchild present on a visiting basis. No animals related in the home Smoking Status: Former smoker Past Alcohol Use History: None Reported Past Drug Use History: None Reported - Past Family History Mother Family Medical History: AFIB, Diabetes Mellitus, Hyperlipidemia, Hypertension, Osteoarthritis (OA) Additional Family Medical History / Comment(s): skin cancer Father Family Medical History: Cancer, Congestive Heart Failure (CHF), Coronary Artery Disease (CAD), Hypertension Additional Family Medical History / Comment(s): lung cancer Medications and Allergies Home Medications Medication Instructions Recorded Confirmed Type FLUoxetine HCL [PROzac] 40 mg PO DAILY 12/02/16 04/20/18 History Hizentra 10gm 10 gm SQ TH 03/31/18 04/20/18 History Levothyroxine Sodium 25 mcg PO DAILY 03/31/18 04/20/18 History Multivitamins, Thera [Multivitamin 1 tab PO DAILY 03/31/18 04/20/18 History (formulary)] Acetaminophen Tab [Tylenol] 650 mg PO Q6HR tab 04/06/18 04/20/18 Rx predniSONE See Taper PO DAILY 04/11/18 04/20/18 History Dicyclomine [Bentyl] 10 mg PO BID 04/20/18 04/20/18 History Ondansetron Odt [Zofran Odt] 4 mg PO Q6H PRN 04/20/18 04/20/18 History Pantoprazole Sodium [Protonix] 40 mg PO BID 04/20/18 04/20/18 History Allergies Allergy/AdvReac Type Severity Reaction Status Date / Time codeine AdvReac Nausea & Verified 04/20/18 20:23 Vomiting morphine AdvReac Nausea & Verified 04/20/18 20:23 Vomiting Surgical - Exam Vital Signs Temp Pulse Resp BP Pulse Ox 97.9 F 85 18 142/85 99 04/20/18 19:40 04/20/18 19:40 04/20/18 19:40 04/20/18 19:40 04/20/18 19:40 GENERAL APPEARANCE: 37-year-old patient is alert, oriented, in no acute distress. Talkative VITAL SIGNS: Reviewed HEENT: Head is normocephalic and atraumatic. Pupils are equal and reactive. The nares are patent. Oropharynx is clear without lesions. NECK: Supple without lymphadenopathy. Traches midline. HEART: S1, S2. Regular rate and rhythm. No murmur noted denying chest pain LUNGS: No crackles or wheezes are heard. Adequate air movement bilaterally ABDOMEN: Soft, mild tenderness left lower quadrant, nondistended hypoactive bowel tones. No peritoneal signs. No palpable organomegaly or masses reports a nausea sensation no active emesis no stooling. EXTREMITIES: Normal skin color and turgor. No cyanosis, rash, ulceration, clubbing or edema. Radial pedal pulses are 2/4 bilaterally. NEUROLOGICAL: No focal deficits. Strength and sensation are grossly intact. Results - Labs 04/20/18 20:18 04/20/18 20:18 Abnormal Lab Results - Last 24 Hours (Table) 04/20/18 04/20/18 04/20/18 Range/Units 20:18 20:18 20:18 WBC 11.9 H (3.8-10.6) k/uL Neutrophils # 8.7 H (1.3-7.7) k/uL BUN 19 H (7-17) mg/dL Glucose 149 H (74-99) mg/dL Plasma Lactic Acid Keith (0.7-2.0) mmol/L Urine Blood Trace H (Negative) 04/20/18 Range/Units 20:19 WBC (3.8-10.6) k/uL Neutrophils # (1.3-7.7) k/uL BUN (7-17) mg/dL Glucose (74-99) mg/dL Plasma Lactic Acid Keith 2.8 H* (0.7-2.0) mmol/L Urine Blood (Negative) Microbiology - Last 24 Hours (Table) 04/20/18 22:38 Urine Culture - Preliminary Urine,Clean Catch Diabetes panel 04/20/18 Range/Units 20:18 Sodium 139 (137-145) mmol/L Potassium 4.7 (3.5-5.1) mmol/L Chloride 101 (98-107) mmol/L Carbon Dioxide 25 (22-30) mmol/L BUN 19 H (7-17) mg/dL Creatinine 0.72 (0.52-1.04) mg/dL Glucose 149 H (74-99) mg/dL Calcium 9.8 (8.4-10.2) mg/dL AST 26 (14-36) U/L ALT 21 (9-52) U/L Alkaline Phosphatase 47 (38-126) U/L Total Protein 7.3 (6.3-8.2) g/dL Albumin 4.4 (3.5-5.0) g/dL Calcium panel 04/20/18 Range/Units 20:18 Calcium 9.8 (8.4-10.2) mg/dL Albumin 4.4 (3.5-5.0) g/dL Pituitary panel 04/20/18 Range/Units 20:18 Sodium 139 (137-145) mmol/L Potassium 4.7 (3.5-5.1) mmol/L Chloride 101 (98-107) mmol/L Carbon Dioxide 25 (22-30) mmol/L BUN 19 H (7-17) mg/dL Creatinine 0.72 (0.52-1.04) mg/dL Glucose 149 H (74-99) mg/dL Calcium 9.8 (8.4-10.2) mg/dL Adrenal panel 04/20/18 Range/Units 20:18 Sodium 139 (137-145) mmol/L Potassium 4.7 (3.5-5.1) mmol/L Chloride 101 (98-107) mmol/L Carbon Dioxide 25 (22-30) mmol/L BUN 19 H (7-17) mg/dL Creatinine 0.72 (0.52-1.04) mg/dL Glucose 149 H (74-99) mg/dL Calcium 9.8 (8.4-10.2) mg/dL Total Bilirubin 0.3 (0.2-1.3) mg/dL AST 26 (14-36) U/L ALT 21 (9-52) U/L Alkaline Phosphatase 47 (38-126) U/L Total Protein 7.3 (6.3-8.2) g/dL Albumin 4.4 (3.5-5.0) g/dL Assessment and Plan Assessment: Impression Present on admission left lower quadrant abdominal pain unclear etiology Status post 1 week prior colonoscopy biopsies negative for active colitis Status post EGD 1 week prior mild gastritis History of Crohn's disease per patient report History of, unbearable immunodeficiency Persistent left side abdominal pain with nausea frequent stooling A recent hospitalization for possible small bowel intussusception repeat CAT scan resolved HIDA scan prior admission done March 31 hypercontractile state suggested EF 96% Plan Continue recommendations by GI service Anti-emetics as ordered IV hydration as ordered DVT and GI prophylaxis Continue Bentyl 10 mg 4 times a day Clear liquid diet and advance as tolerated Will follow with you with further surgical recommendations No evidence of an acute surgical abdomen at this time Surgical consultation dictated for The above impression and plan of care have been discussed and directed by signing physician. Marta Pakrer nurse practitioner acting as scribe for signing physician.
--- NOTE | 2018-04-21 16:38 | US ---
EXAMINATION TYPE: US transvaginal DATE OF EXAM: 04/21/2018 COMPARISON: 03/27/2016 CLINICAL HISTORY: 37-year-old female pelvic pain. TECHNIQUE: Transvaginal sonographic images of the pelvis were acquired. Transabdominal sonographic images were medically necessary to better assess the following anatomy: Bilateral ovaries; out of fie ld of view of TV Date of LMP: 04/16/2018 FINDINGS: Uterus: Anteverted measuring 8.3 x 4.2 x 4.9 cm Endometrial Stripe: 0.6 cm Right Ovary: 1.9 x 2.0 x 2.3 cm Left Ovary: 3.0 x 1.8 x 2.4 cm No evident adnexal abnormality or cul-de-sac free fluid. Bilateral ovaries were out of field of view for TV imaging,; Transabdominal imaging used to locate ov andriy. IMPRESSION: Normal ovaries identified on transabdominal scanning. No specific abnormality identified of the pelvi s.
[2018-04-21] MEDS: KETOROLAC 30 MG/ML 1 ML VIAL IVP PRN ×2 (17:29→23:32)
[2018-04-21 21:07] VITALS: RESP 18
[2018-04-22 00:10] VITALS: PULSE 62
[2018-04-22] MEDS: HYDROcodone/APAP 5-325MG 1 EACH TAB PO PRN ×2 (03:57→11:54)
[2018-04-22 05:30] VITALS: BP 117/77; TEMP 98.1
[2018-04-22] MEDS: SODIUM CHLORIDE 0.9% 1,000 ML IV SCH (05:50)
[2018-04-22] MEDS: LEVOTHYROXINE 25 MCG TAB PO SCH (05:50)
[2018-04-22] MEDS: ONDANSETRON 4 MG/2 ML VIAL IVP PRN (07:37)
[2018-04-22] MEDS: DICYCLOMINE 10 MG CAP PO SCH ×2 (07:37→11:55)
[2018-04-22] MEDS: PANTOPRAZOLE 40 MG TABLET PO SCH (07:37)
[2018-04-22] MEDS: FLUoxetine HCL 20 MG CAP PO SCH (07:39)
[2018-04-22] MEDS: predniSONE 10 MG TAB PO SCH (07:39)
[2018-04-22] MEDS: KETOROLAC 30 MG/ML 1 ML VIAL IVP PRN (07:45)
--- NOTE | 2018-04-22 11:36 | P.PN ---
Subjective Progress Note Date: 04/22/18 Principal diagnosis: Abdominal pain Feels better. Requesting diet advancement. Minimal diarrhea. No bleeding. Afebrile. Objective - Vital Signs Vital signs: Vital Signs Temp 98.1 F 04/22/18 05:00 Pulse 62 04/22/18 08:00 Resp 18 04/22/18 08:00 BP 117/77 04/22/18 05:00 Pulse Ox 98 04/22/18 05:00 Intake & Output 04/21/18 04/22/18 04/22/18 18:59 06:59 18:59 Intake Total 600 1920 Balance 600 1920 Weight 113.39 kg Intake: Intake, IV Titration 1920 Amount Sodium Chloride 0.9% 1, 1920 000 ml @ 120 mls/hr IV . Q8H20M [facility] Rx#:[id number] Oral 600 Other: Voiding Method Toilet Toilet # Voids 2 1 - Exam General appearance: The patient is alert, oriented, in no acute distress. HET: Head is normocephalic and atraumatic. Pupils are equal and reactive. Oropharynx is clear without lesions. Neck: Supple without lymphadenopathy. Trachea midline. Heart: S1 S2. Regular rate and rhythm. Lungs: No crackles or wheezes are heard. Abdomen: Soft,. Mild tenderness left side of abdomen, nondistended with bowel sounds. No peritoneal signs. No palpable organomegaly or masses. Extremities: Normal skin color and turgor. No cyanosis, rash, ulceration, clubbing, or edema. Radial and pedal pulses are 2/4 bilaterally. Neurological: No focal deficits. Strength and sensation are grossly intact. - Labs CBC & Chem 7: 04/20/18 20:18 04/20/18 20:18 Labs: Microbiology - Last 24 Hours (Table) 04/21/18 00:14 Blood Culture - Preliminary Blood No Growth after 24 hours 04/20/18 22:38 Urine Culture - Preliminary Urine,Clean Catch Assessment and Plan (1) Abdominal pain Narrative/Plan: 37-year-old female with a history of CVIG and reported Crohn's history diagnosis outside facility several years ago presents with persistent left- sided abdominal pain nausea vomiting loose nonbloody bowel movements. Recently hospitalized possible small bowel intussusception possible inflammatory colitis possible self limiting infectious colitis with a suspected underlying exacerbation of irritable bowel syndrome-D. Current Visit: Yes Status: Acute Code(s): R10.9 - UNSPECIFIED ABDOMINAL PAIN SNOMED Code(s): 66417854 (2) Common variable immunodeficiency Current Visit: Yes Status: Acute Code(s): D83.9 - COMMON VARIABLE IMMUNODEFICIENCY, UNSPECIFIED SNOMED Code(s): 22964027 (3) History of Crohn's disease Current Visit: Yes Status: Acute Code(s): Z87.19 - PERSONAL HISTORY OF OTHER DISEASES OF THE DIGESTIVE SYSTEM SNOMED Code(s): 738569308581782 (4) Depressive disorder Current Visit: No Status: Acute Code(s): F32.9 - MAJOR DEPRESSIVE DISORDER, SINGLE EPISODE, UNSPECIFIED SNOMED Code(s): 98053060 Plan: 1. Overall patient appears to feel better today. Continue with Bentyl 10 mg 4 times a day may increase to 20 mg 4 times a day. Agreeable for discharge. Follow-up in office on April [address] Pimentel. Continue with prednisone taper 30 mg daily decreased by 5 mg every 7 days; 25 mg on April 27. Assessment and plan a care discussed with Dr. Chopra
[2018-04-22] MEDS ORDERED: predniSONE 20 MG TAB PO ONE (11:45)
[2018-04-22] MEDS: MULTIVITAMINS, THERA 1 EACH TAB PO SCH (11:55)
--- NOTE | 2018-04-22 11:56 | P.PN ---
Progress Note - Text Progress Note Date: 04/22/18 37-year-old female seen this morning sitting up on the edge of the bed. States feels much better is anxious to be discharged. States the pain in the discomfort in the left lower quadrant has improved. No further surgical recommendations at this time we'll sign off and follow patient in the outpatient setting an appointment to be made within the week. The above impression and plan of care have been discussed and directed by signing physician. Marta Parker nurse practitioner acting as scribe for signing physician.
--- NOTE | 2018-04-22 14:30 | P.DS ---
Providers Date of admission: 04/20/18 22:53 Expected date of discharge: 04/22/18 Attending physician: Ayan Forte Consults: 04/20/18 22:53 Consult Physician Stat Consulting Provider: Rich Pimentel Consult Reason/Comments: abdominal pain, h/o crohns h/o colitis h/o intussusception, Do you want consulting provider notified?: Yes 04/20/18 23:16 Consult Physician Stat Consulting Provider: Denis Guerrero Consult Reason/Comments: abdominal pain, h/o colitis/crohns/intussusception Do you want consulting provider notified?: Yes Primary care physician: [facility] Course: This is a 37-year-old female patient of Dr. Gipson with past medical history for common variable immunodeficiency, possible Crohn's disease, gastroesophageal reflux disease, bipolar disorder. patient was recently admitted under a different service a few weeks ago with left-sided abdominal pain dull sometimes sharp with nausea and vomiting. CT of the abdomen at that time showed intussusception of small bowel polyp CT showed resolution however showed an area of colitis possible exacerbation of IBD. Sed rate CRP unremarkable. Patient was given a trial of oral steroids with improvement of pain. C. diff testing was negative. Patient was stabilized and discharged home with plan for follow-up with the GI office on April 26 however her pain persisted and she underwent a colonoscopy EGD evaluation by general surgery in 04/13/2018. EGD reported antral gastritis hiatal hernia mild esophagitis colonoscopy without significant inflammation. Left colon polypectomy tubular adenoma colon biopsies negative for active colitis.patient presented back to the emergency center due to left-sided abdominal pain along with nausea and vomiting. CT abdomen and pelvis yesterday showed improvement of colitis previously seen on exam. No mesenteric edema or adenopathy. Normal appendix. White count 11.9. Hemoglobin 13.7. Lactic acid 2.8 with hydration 1.9. BUN 19. Creatinine 0.7, LFTs amylase lipase within normal limits. Patient was placed on the MedSurg floor and consult requested with GI and general surgery. 04/22:Patient has been seen by GI with plan to increase Bentyl and have follow- up as an outpatient. Patient was also seen by general surgery with no plan for intervention. Abdominal pain is currently controlled and patient will be discharged home today in stable condition. It was recommended to the patient that she continues to have lower abdominal pain that she should have follow-up with urology for possible interstitial cystitis. discharge diagnoses: 1 severe abdominal pain: Still not clear etiology, patient was seen gastroenterology and general surgery from last time, multiple CAT scan EGD and colonoscopy done no major finding at this time. Her pathology from colonoscopy did not provide more data for colitis even though patient has history of Crohn disease according to her last gastroneurologist down in the [facility]. Waiting for results of pathology from her last colonoscopy to decide on further management for acute on chronic colitis. 2 pelvic pain: Not a clear etiology whether it's related to IBSD or interstitial cystitis or possible endometriosis or any finding consistent with FIN[employer]CIAL SERVICES ASSIST[employer] not clear this point, will request transvaginal ultrasound and awaiting for clean catch urine test with culture. 3 intractable nausea vomiting: Patient is on hydration continue antiarrhythmic medication with Zofran as needed basis for now. 4 severe pain and chronic pain management: This continue Dilaudid IV patient remain on hydrocodone orally along with Toradol. Try to limit 8 all IV pain meds if possible Underlying mild muscle relaxer as well and anti-spastic agent. 5 chronic history of primary immunodeficiency: Has been seen one of the basket grader down in the [facility] and She is on Hizentra along with prednisone 10 mg a day continue medication. 6 chronic depression: Has been on Prozac 40 mg a day. 7 severe GERD and mild hiatal hernia: Has been on pantoprazole 40 mg a day. 8 hypothyroidism: discharge plan: Home Impression and plan of care have been directed as dictated by the signing physician. Eden Kennedy nurse practitioner acting as scribe for signing physician. Patient Condition at Discharge: Good Plan - Discharge Summary Discharge Rx Participant: Yes New Discharge Prescriptions: Continue FLUoxetine HCL [PROzac] 40 mg PO DAILY Multivitamins, Thera [Multivitamin (formulary)] 1 tab PO DAILY Levothyroxine Sodium 25 mcg PO DAILY Hizentra 10gm 10 gm SQ TH Acetaminophen Tab [Tylenol] 650 mg PO Q6HR tab predniSONE See Taper PO DAILY Ondansetron Odt [Zofran ODT] 4 mg PO Q6H PRN PRN Reason: Nasal Congestion Pantoprazole Sodium [Protonix] 40 mg PO BID Changed Dicyclomine [Bentyl] 10 mg PO QID #120 cap Discharge Medication List FLUoxetine HCL [PROzac] 40 mg PO DAILY 12/02/16 [History] Hizentra 10gm 10 gm SQ TH 03/31/18 [History] Levothyroxine Sodium 25 mcg PO DAILY 03/31/18 [History] Multivitamins, Thera [Multivitamin (formulary)] 1 tab PO DAILY 03/31/18 [History ] Acetaminophen Tab [Tylenol] 650 mg PO Q6HR tab 04/06/18 [Rx] predniSONE See Taper PO DAILY 04/11/18 [History] Ondansetron Odt [Zofran ODT] 4 mg PO Q6H PRN 04/20/18 [History] Pantoprazole Sodium [Protonix] 40 mg PO BID 04/20/18 [History] Dicyclomine [Bentyl] 10 mg PO QID #120 cap 04/22/18 [Rx] Follow up Appointment(s)/Referral(s): Carlos Gipson DO [Primary Care Provider] - 04/29/18 10:30 am Rich Pimentel MD [STAFF PHYSICIAN] - 04/26/18 11:45 am Denis Guerrero MD [STAFF PHYSICIAN] - 05/03/18 2:50 pm Patient Instructions/Handouts: Dicyclomine (By mouth), Crohn Disease (DC), Acute Abdominal Pain (DC) Discharge Disposition: HOME SELF-CARE
[2018-04-22 14:32] LABS: Saccharomyces cerevisiae IgA 1.2 UNITS (<=20)
[2018-04-22 14:54] LABS: C-ANCA <1:20 Titer (<1:20); P-ANCA <1:20 Titer (<1:20)
[2018-04-23] MEDS ORDERED: predniSONE 10 MG TAB PO SCH (09:00)
== END 2018-04-22 13:24 | disposition home or self-care (01) ==
LOC: EC 19:36 → 3NMEDONC 22:53 → INTOOBSV 22:53
PROVIDERS: ADMIT Internal Medicine Geriatric Medicine; ATTEND Internal Medicine Geriatric Medicine
DX: R10.32 Left lower quadrant pain (principal); R10.2 Pelvic and perineal pain; R11.2 Nausea with vomiting, unspecified; G89.29 Other chronic pain; D83.9 Common variable immunodeficiency, unspecified; K50.90 Crohn's disease, unspecified, without complications; E03.9 Hypothyroidism, unspecified; K21.0 Gastro-esophageal reflux disease with esophagitis; K44.9 Diaphragmatic hernia without obstruction or gangrene; K29.60 Other gastritis without bleeding; Z79.899 Other long term (current) drug therapy; F31.9 Bipolar disorder, unspecified; Z86.010 Personal history of colon polyps; K52.9 Noninfective gastroenteritis and colitis, unspecified; R51 Headache; Z79.890 Hormone replacement therapy; Z88.5 Allergy status to narcotic agent; Z87.891 Personal history of nicotine dependence; Z83.3 Family history of diabetes mellitus; Z82.49 Family history of ischemic heart disease and other diseases of the circulatory system; Z80.8 Family history of malignant neoplasm of other organs or systems; Z82.61 Family history of arthritis; Z80.1 Family history of malignant neoplasm of trachea, bronchus and lung; Z68.34 Body mass index [BMI] 34.0-34.9, adult; E66.9 Obesity, unspecified
CPT/HCPCS: 96376 ×3; 96361 ×3; 96374; 96375; 99285; 36415; 86255; 86671 ×2; 80053; 85652; 82150; 83605 ×2; 83690; 85025; 86140; 81001; 81025; 87040; 83993; 87086; 76830; 74177; G0378 ×3; J2765; J2405 ×3; J1885 ×3; J1170 ×2; J7512 ×3; Q9967

== ENCOUNTER → 2018-04-25 | Outpatient (CLI) | payer MEDICARE, OTHER | END | disposition home or self-care (01) | LOC: LABWHC1 08:46 | PROVIDERS: ATTEND Internal Medicine | DX: Z53.9 Procedure and treatment not carried out, unspecified reason (principal) ==

== ENCOUNTER 2018-05-25 23:52 | Emergency (ER) | payer MEDICARE, OTHER ==
--- NOTE | 2018-05-26 01:20 | ED ---
General Adult HPI - General Chief complaint: Dizziness Stated complaint: Dizzy, fatigue Time Seen by Provider: 05/26/18 01:02 Source: patient, RN notes reviewed Mode of arrival: wheelchair Limitations: no limitations - History of Present Illness Initial comments: 37-year-old female with a past medical history of GERD, common variable immune deficiency, Crohn's, colitis presents to the emergency department for a chief complaint of diarrhea 1 week. Patient states she started to get episodes of diarrhea about one week ago. Patient states she has vomited once today and once one week ago. She admits to nausea and decreased appetite. Patient states she does feel somewhat weak from this. She states she is on Bentyl which has helped the diarrhea and it has improved somewhat. Patient has been evaluated extensively with GI specialists due to recent abdominal pain. She denies any fevers or chills.Patient has no other complaints at this time including shortness of breath, chest pain, nausea or vomiting, headache, or visual changes. - Related Data Home Medications Medication Instructions Recorded Confirmed FLUoxetine HCL [PROzac] 40 mg PO DAILY 12/02/16 04/20/18 Hizentra 10gm 10 gm SQ TH 03/31/18 04/20/18 Levothyroxine Sodium 25 mcg PO DAILY 03/31/18 04/20/18 Multivitamins, Thera [Multivitamin 1 tab PO DAILY 03/31/18 04/20/18 (formulary)] predniSONE See Taper PO DAILY 04/11/18 04/20/18 Ondansetron Odt [Zofran ODT] 4 mg PO Q6H PRN 04/20/18 04/20/18 Pantoprazole Sodium [Protonix] 40 mg PO BID 04/20/18 04/20/18 Previous Rx's Medication Instructions Recorded Acetaminophen Tab [Tylenol] 650 mg PO Q6HR tab 04/06/18 Dicyclomine [Bentyl] 10 mg PO QID #120 cap 04/22/18 Allergies Allergy/AdvReac Type Severity Reaction Status Date / Time codeine AdvReac Nausea & Verified 04/20/18 20:23 Vomiting morphine AdvReac Nausea & Verified 04/20/18 20:23 Vomiting Review of Systems ROS Statement: Those systems with pertinent positive or pertinent negative responses have been documented in the HPI. ROS Other: All systems not noted in ROS Statement are negative. Past Medical History Past Medical History: GERD/Reflux Additional Past Medical History / Comment(s): common variable immune deficiency , crohns, colitis History of Any Multi-Drug Resistant Organisms: None Reported Additional Past Surgical History / Comment(s): port placement and removal, port replacement B side Past Anesthesia/Blood Transfusion Reactions: No Reported Reaction Past Psychological History: Bipolar Smoking Status: Former smoker Past Alcohol Use History: None Reported Past Drug Use History: None Reported - Past Family History Mother Family Medical History: AFIB, Diabetes Mellitus, Hyperlipidemia, Hypertension, Osteoarthritis (OA) Additional Family Medical History / Comment(s): skin cancer Father Family Medical History: Cancer, Congestive Heart Failure (CHF), Coronary Artery Disease (CAD), Hypertension Additional Family Medical History / Comment(s): lung cancer General Exam Limitations: no limitations General appearance: alert, in no apparent distress Head exam: Present: atraumatic, normocephalic, normal inspection Eye exam: Present: normal appearance, PERRL, EOMI. Absent: scleral icterus, conjunctival injection, periorbital swelling ENT exam: Present: normal exam, mucous membranes moist Neck exam: Present: normal inspection, full ROM. Absent: tenderness, meningismus, lymphadenopathy Respiratory exam: Present: normal lung sounds bilaterally. Absent: respiratory distress, wheezes, rales, rhonchi, stridor Cardiovascular Exam: Present: regular rate, normal rhythm, normal heart sounds. Absent: systolic murmur, diastolic murmur, rubs, gallop, clicks GI/Abdominal exam: Present: soft, normal bowel sounds. Absent: distended, tenderness (No significant tenderness on exam), guarding, rebound, rigid Neurological exam: Present: alert, oriented X3, CN II-XII intact Psychiatric exam: Present: normal affect, normal mood Course Vital Signs 05/26/18 05/26/18 05/26/18 00:10 03:02 04:10 Temperature 97.9 F 97.4 F L Pulse Rate 80 89 69 Respiratory 16 19 20 Rate Blood Pressure 125/83 105/60 95/55 O2 Sat by Pulse 99 97 96 Oximetry EKG Findings - EKG Comments: EKG Findings:: Normal sinus rhythm, ventricular rate 64, IL interval 128, QRS duration 86, QTc 412 Medical Decision Making - Medical Decision Making 37-year-old female presents for a chief complaint of diarrhea with nausea for 1 week. Patient states she is feeling somewhat weak from this. Patient is on Bentyl which has helped with the diarrhea. On exam no significant abdominal tenderness. Patient is well-appearing. CBC and CMP are unremarkable. Urine does not show any evidence of infection, hCG negative. Patient has had multiple CAT scans in the past several months and is closely being followed by GI. At this time as patient does not have abdominal pain, is passing stool and gas imaging is not required, patient agrees with this. Patient unable to give stool sample, recommended following up for this. On reevaluation patient is having better, nausea has subsided. Discussed returning if she has any worsening symptoms. - Lab Data Result diagrams: 05/26/18 02:04 05/26/18 02:04 Lab Results 05/26/18 05/26/18 05/26/18 Range/Units 02:04 02:04 02:04 WBC 8.9 (3.8-10.6) k/uL RBC 4.23 (3.80-5.40) m/uL Hgb 12.7 (11.4-16.0) gm/dL Hct 36.7 (34.0-46.0) % MCV 86.6 (80.0-100.0) fL MCH 30.0 (25.0-35.0) pg MCHC 34.7 (31.0-37.0) g/dL RDW 13.1 (11.5-15.5) % Plt Count 251 (150-450) k/uL Neutrophils % 63 % Lymphocytes % 29 % Monocytes % 5 % Eosinophils % 1 % Basophils % 0 % Neutrophils # 5.6 (1.3-7.7) k/uL Lymphocytes # 2.6 (1.0-4.8) k/uL Monocytes # 0.5 (0-1.0) k/uL Eosinophils # 0.1 (0-0.7) k/uL Basophils # 0.0 (0-0.2) k/uL Sodium 138 (137-145) mmol/L Potassium 4.2 (3.5-5.1) mmol/L Chloride 103 (98-107) mmol/L Carbon Dioxide 27 (22-30) mmol/L Anion Gap 8 mmol/L BUN 13 (7-17) mg/dL Creatinine 0.69 (0.52-1.04) mg/dL Est GFR (CKD-EPI)AfAm >90 (>60 ml/min/1.73 sqM) Est GFR (CKD-EPI)NonAf >90 (>60 ml/min/1.73 sqM) Glucose 99 (74-99) mg/dL Calcium 9.3 (8.4-10.2) mg/dL Total Bilirubin 0.2 (0.2-1.3) mg/dL AST 24 (14-36) U/L ALT 26 (9-52) U/L Alkaline Phosphatase 56 (38-126) U/L Total Protein 6.4 (6.3-8.2) g/dL Albumin 3.9 (3.5-5.0) g/dL Amylase 31 (30-110) U/L Lipase 103 (23-300) U/L Urine Color Light Yellow Urine Appearance Clear (Clear) Urine pH 5.0 (5.0-8.0) Ur Specific [place] 1.007 (1.001-1.035) Urine Protein Negative (Negative) Urine Glucose (UA) Negative (Negative) Urine Ketones Negative (Negative) Urine Blood Trace H (Negative) Urine Nitrite Negative (Negative) Urine Bilirubin Negative (Negative) Urine Urobilinogen <2.0 (<2.0) mg/dL Ur Leukocyte Esterase Negative (Negative) Urine RBC <1 (0-5) /hpf Ur Squamous Epith Cells <1 (0-4) /hpf Urine Bacteria Rare H (None) /hpf Urine HCG, Qual (Not Detectd) 05/26/18 Range/Units 02:04 WBC (3.8-10.6) k/uL RBC (3.80-5.40) m/uL Hgb (11.4-16.0) gm/dL Hct (34.0-46.0) % MCV (80.0-100.0) fL MCH (25.0-35.0) pg MCHC (31.0-37.0) g/dL RDW (11.5-15.5) % Plt Count (150-450) k/uL Neutrophils % % Lymphocytes % % Monocytes % % Eosinophils % % Basophils % % Neutrophils # (1.3-7.7) k/uL Lymphocytes # (1.0-4.8) k/uL Monocytes # (0-1.0) k/uL Eosinophils # (0-0.7) k/uL Basophils # (0-0.2) k/uL Sodium (137-145) mmol/L Potassium (3.5-5.1) mmol/L Chloride (98-107) mmol/L Carbon Dioxide (22-30) mmol/L Anion Gap mmol/L BUN (7-17) mg/dL Creatinine (0.52-1.04) mg/dL Est GFR (CKD-EPI)AfAm (>60 ml/min/1.73 sqM) Est GFR (CKD-EPI)NonAf (>60 ml/min/1.73 sqM) Glucose (74-99) mg/dL Calcium (8.4-10.2) mg/dL Total Bilirubin (0.2-1.3) mg/dL AST (14-36) U/L ALT (9-52) U/L Alkaline Phosphatase (38-126) U/L Total Protein (6.3-8.2) g/dL Albumin (3.5-5.0) g/dL Amylase (30-110) U/L Lipase (23-300) U/L Urine Color Urine Appearance (Clear) Urine pH (5.0-8.0) Ur Specific [place] (1.001-1.035) Urine Protein (Negative) Urine Glucose (UA) (Negative) Urine Ketones (Negative) Urine Blood (Negative) Urine Nitrite (Negative) Urine Bilirubin (Negative) Urine Urobilinogen (<2.0) mg/dL Ur Leukocyte Esterase (Negative) Urine RBC (0-5) /hpf Ur Squamous Epith Cells (0-4) /hpf Urine Bacteria (None) /hpf Urine HCG, Qual Not Detected (Not Detectd) Disposition Clinical Impression: Vomiting and diarrhea Disposition: HOME SELF-CARE Condition: Good Instructions: Acute Nausea and Vomiting (ED), Acute Diarrhea (ED) Additional Instructions: Continue to drink plenty of fluids. Follow-up with your GI specialists. Follow -up with primary care. Return if you have any worsening symptoms or worsening abdominal pain. Is patient prescribed a controlled substance at d/c from ED?: No Referrals: Carlos Gipson DO [Primary Care Provider] - 1-2 days Rich Pimentel MD [STAFF PHYSICIAN] - 1-2 days Time of Disposition: 03:56
[2018-05-26] MEDS ORDERED: SODIUM CHLORIDE 0.9% 1,000 ML IV STA (01:28)
[2018-05-26] MEDS ORDERED: ONDANSETRON 4 MG/2 ML VIAL IVP STA (01:28)
[2018-05-26] MEDS ORDERED: KETOROLAC 30 MG/ML 1 ML VIAL IVP STA (01:28)
[2018-05-26 02:36] LABS: Basophils % (A) 0 %; Eosinophils # (A) 0.1 k/uL (0-0.7); Eosinophils % (A) 1 %; HCT 36.7 % (34.0-46.0); HGB 12.7 gm/dL (11.4-16.0); Lymphocytes # (A) 2.6 k/uL (1.0-4.8); Lymphocytes % (A) 29 %; MCHC 34.7 g/dL (31.0-37.0); MCV 86.6 fL (80.0-100.0); Mean Platelet Volume 6.8; Monocytes # (A) 0.5 k/uL (0-1.0); Monocytes % (A) 5 %; Neutrophils # (A) 5.6 k/uL (1.3-7.7); Neutrophils % (A) 63 %; Platelet Count 251 k/uL (150-450); RBC 4.23 m/uL (3.80-5.40); RDW 13.1 % (11.5-15.5); WBC 8.9 k/uL (3.8-10.6)
[2018-05-26 02:41] LABS: Appearance,Urine Clear (Clear); Bacteria,Urine Rare /hpf; Bilirubin,Urine Negative (Negative); Blood,Urine Trace (Negative); Color,Urine Light Yellow; Glucose,Urine (UA) Negative (Negative); Ketones,Urine Negative (Negative); Leukocyte Esterase,Urine Negative (Negative); Nitrite,Urine Negative (Negative); Protein,Urine Negative (Negative); RBC,Urine <1 /hpf (0-5); Specific Gravity,Urine 1.007 (1.001-1.035); Squamous Epithelial Cell,Urine <1 /hpf (0-4); Urobilinogen,Urine <2.0 mg/dL (<2.0)
[2018-05-26] MEDS ORDERED: LORazepam 1 MG TAB PO STA (02:48)
[2018-05-26 02:58] LABS: ALT 26 U/L (9-52); AST 24 U/L (14-36); Albumin 3.9 g/dL (3.5-5.0); Alkaline Phosphatase 56 U/L (38-126); Amylase 31 U/L (30-110); Anion Gap 8 mmol/L; Blood Urea Nitrogen 13 mg/dL (7-17); Calcium 9.3 mg/dL (8.4-10.2); Carbon Dioxide 27 mmol/L (22-30); Chloride 103 mmol/L (98-107); Glucose 99 mg/dL (74-99); Lipase 103 U/L (23-300); Potassium 4.2 mmol/L (3.5-5.1); Sodium 138 mmol/L (137-145); Total Bilirubin 0.2 mg/dL (0.2-1.3); Total Protein 6.4 g/dL (6.3-8.2)
[2018-05-26 04:12] VITALS: BP 95/55; PULSE 69; RESP 20; TEMP 97.4
== END 2018-05-26 04:14 | disposition home or self-care (01) ==
LOC: EC 23:52
DX: R19.7 Diarrhea, unspecified (principal); R11.2 Nausea with vomiting, unspecified; R53.83 Other fatigue; R42 Dizziness and giddiness; Z32.02 Encounter for pregnancy test, result negative; K21.9 Gastro-esophageal reflux disease without esophagitis; Z79.890 Hormone replacement therapy; Z79.899 Other long term (current) drug therapy; Z88.5 Allergy status to narcotic agent; Z87.891 Personal history of nicotine dependence
CPT/HCPCS: 36415; 93005; 80053; 82150; 83690; 85025; 81001; 81025; 87040; 99284; 96374; 96375; 96361; J2405; J1885

== ENCOUNTER → 2018-05-30 | Outpatient (CLI) | payer MEDICARE, OTHER | LOC: LABWHC1 16:35 | PROVIDERS: ATTEND Family Medicine | DX: N94.6 Dysmenorrhea, unspecified (principal); N93.8 Other specified abnormal uterine and vaginal bleeding | CPT/HCPCS: 36415; 84702 ==

== ENCOUNTER → 2018-06-01 | Day surgery (SDC) | payer MEDICARE, OTHER ==
[~2018-06-01] MED LIST: ALPRAZolam 0.25 MG TAB PO STA; GLUCAGON 1 MG/ML VIAL IM STA
[2018-06-01 09:10] VITALS: BP 112/76; PULSE 96; RESP 16; TEMP 98.1
--- NOTE | 2018-06-02 16:15 | MR ---
EXAMINATION TYPE: MR Enterography DATE OF EXAM: 06/01/2018 COMPARISON: CT abdomen pelvis dated 04/20/2018 and 04/05/2018 HISTORY: Crohn's Disease. Abdominal pain. CONTRAST: Standard multiplanar, multisequence imaging of the abdomen is performed without and with IV contrast, patient is injected with 11.5 mL intravenous Gadavist gadolinium contrast. Oral Volumen and Water wa s given as per enterography protocol. FINDINGS: There are numerous scattered subcentimeter mesenteric lymph nodes with the largest in the right lower quadrant measuring up to 8 mm in short axis and the majority sub-5 mm. In this patient with Crohn's disease these are likely reactive to chronic inflammatory change. There is abnormal enhancement of lo ops of distal ileum within the right lower quadrant such as on coronal postcontrast image 119 and axi al image 24. These loops. Upon one another but are estimated to measure approximately 3 cm in total d imension. No surrounding abscess or fluid collection. There is no appreciable bowel wall thickening o r abnormal enhancement of the terminal ileum nor remainder of the bowel. Bowel. Pattern is within nor mal limits. No fistula is seen. There is no sinus tract noted. Gluteal region is not imaged. The visualized portions of the adrenal glands, pancreas, spleen, liver, gallbladder, and kidneys are grossly unremarkable. Bone marrow signal is within normal limits. Subcutaneous soft tissues are unrem arkable. IMPRESSION: 1. Focal short segment of distal ileum in the low right lower quadrant with abnormal enhancement rela ting to acute inflammation with no perienteric abscess identified. Terminal ileum appears unremarkabl e. No MR evidence of stricture, fistula, obstruction, or terminal ileitis. 2. Multiple prominent mesenteric lymph nodes most pronounced in the right lower quadrant are likely o n the basis of acute on chronic inflammatory change in this patient with Crohn's disease however surv eillance is recommended to exclude development of low-grade lymphoma.
== END ==
LOC: RADMRIMAIN 08:18
PROVIDERS: ATTEND Internal Medicine
DX: K50.90 Crohn's disease, unspecified, without complications (principal)
CPT/HCPCS: 96372; 72197; 74183; J1610; A9585

== ENCOUNTER 2018-06-20 19:51 | Emergency (ER) | payer MEDICARE, OTHER ==
[2018-06-20 22:06] LABS: Appearance,Urine Clear (Clear); Bilirubin,Urine Negative (Negative); Blood,Urine Negative (Negative); Color,Urine Colorless; Glucose,Urine (UA) Negative (Negative); Ketones,Urine Negative (Negative); Leukocyte Esterase,Urine Negative (Negative); Nitrite,Urine Negative (Negative); PH, Urine 5.5 (5.0-8.0); Protein,Urine Negative (Negative); Specific Gravity,Urine 1.002 (1.001-1.035); Urobilinogen,Urine <2.0 mg/dL (<2.0)
[2018-06-20] MEDS ORDERED: SODIUM CHLORIDE 0.9% 1,000 ML IV ONE (22:25)
[2018-06-20 23:22] LABS: Basophils % (A) 0 %; Eosinophils # (A) 0.1 k/uL (0-0.7); Eosinophils % (A) 1 %; HCT 35.7 % (34.0-46.0); HGB 12.3 gm/dL (11.4-16.0); Lymphocytes # (A) 2.1 k/uL (1.0-4.8); Lymphocytes % (A) 24 %; MCH 29.7 pg (25.0-35.0); MCHC 34.5 g/dL (31.0-37.0); MCV 86.2 fL (80.0-100.0); Mean Platelet Volume 6.5; Monocytes # (A) 0.4 k/uL (0-1.0); Monocytes % (A) 5 %; Neutrophils # (A) 5.9 k/uL (1.3-7.7); Neutrophils % (A) 68 %; Platelet Count 263 k/uL (150-450); RBC 4.14 m/uL (3.80-5.40); RDW 12.7 % (11.5-15.5); WBC 8.6 k/uL (3.8-10.6)
[2018-06-20 23:30] LABS: ALT 15 U/L (9-52); AST 21 U/L (14-36); Albumin 4.1 g/dL (3.5-5.0); Alkaline Phosphatase 54 U/L (38-126); Anion Gap 10 mmol/L; Blood Urea Nitrogen 13 mg/dL (7-17); Calcium 9.4 mg/dL (8.4-10.2); Carbon Dioxide 25 mmol/L (22-30); Chloride 103 mmol/L (98-107); Glucose 89 mg/dL (74-99); Potassium 4.4 mmol/L (3.5-5.1); Sodium 138 mmol/L (137-145); Total Bilirubin 0.3 mg/dL (0.2-1.3); Total Protein 6.7 g/dL (6.3-8.2)
[2018-06-21] MEDS ORDERED: ONDANSETRON 4 MG/2 ML VIAL IVP STA (00:36)
[2018-06-21] MEDS ORDERED: ACETAMINOPHEN TAB 500 MG TAB PO STA (01:22)
--- NOTE | 2018-06-21 02:31 | US ---
EXAM: US Uterus, Limited CLINICAL HISTORY: Pain TECHNIQUE: Real-time ultrasound of the maternal uterus (limited) with image documentation. COMPARISON: No relevant prior studies available. FINDINGS: Fetus: An intrauterine is not identified. Uterus: Uterus and endometrium are unremarkable in size and appearance. Adnexa: Ovaries are not visualized. IMPRESSION: An intrauterine is not identified. Findings are indeterminate and can be seen in the setting of an early intrauterine , failed , or ectopic . Short interval follow- up and serial serum beta hCGs are recommended.
[2018-06-21] MEDS ORDERED: Rhogam IMMUNE GLOBULIN 1,500 UNIT/1 ML IM ONE (03:14)
[2018-06-21 03:22] VITALS: TEMP 98.4
--- NOTE | 2018-06-21 03:42 | ED ---
General Adult HPI - General Chief complaint: Vaginal Bleeding Stated complaint: miscarriage Time Seen by Provider: 06/20/18 21:46 Source: patient, family, RN notes reviewed Mode of arrival: ambulatory Limitations: no limitations - History of Present Illness Initial comments: 37-year-old female with a past medical history of GERD, common variable immune deficiency, Crohn's, colitis presents to the emergency department for chief complaint of vaginal bleeding times one day. Patient states she may be . Patient states she has had multiple negative tests at home as well as a negative serum HCG. However over the past several days she has had 2 positive tests. Patient is concerned she may be . Patient has had 4 previous miscarriages. She denies any significant abdominal pain. Patient has no other complaints at this time including shortness of breath , chest pain, abdominal pain, nausea or vomiting, headache, or visual changes. - Related Data Home Medications Medication Instructions Recorded Confirmed Hizentra 10gm 10 gm SQ TH 03/31/18 06/20/18 RX: Ondansetron Odt [Zofran ODT] 4 mg PO Q6H PRN 04/20/18 06/20/18 RX: Folic Acid 0.8 mg PO DAILY 06/20/18 06/20/18 Allergies Allergy/AdvReac Type Severity Reaction Status Date / Time codeine AdvReac Nausea & Verified 06/20/18 22:02 Vomiting morphine AdvReac Nausea & Verified 06/20/18 22:02 Vomiting Review of Systems ROS Statement: Those systems with pertinent positive or pertinent negative responses have been documented in the HPI. ROS Other: All systems not noted in ROS Statement are negative. Past Medical History Past Medical History: GERD/Reflux Additional Past Medical History / Comment(s): common variable immune deficiency , crohns, colitis History of Any Multi-Drug Resistant Organisms: None Reported Additional Past Surgical History / Comment(s): port placement and removal, port replacement B side Past Anesthesia/Blood Transfusion Reactions: No Reported Reaction Past Psychological History: Bipolar Smoking Status: Former smoker Past Alcohol Use History: None Reported Past Drug Use History: None Reported - Past Family History Mother Family Medical History: AFIB, Diabetes Mellitus, Hyperlipidemia, Hypertension, Osteoarthritis (OA) Additional Family Medical History / Comment(s): skin cancer Father Family Medical History: Cancer, Congestive Heart Failure (CHF), Coronary Artery Disease (CAD), Hypertension Additional Family Medical History / Comment(s): lung cancer General Exam Limitations: no limitations General appearance: alert, in no apparent distress Head exam: Present: atraumatic, normocephalic, normal inspection Eye exam: Present: normal appearance, PERRL, EOMI. Absent: scleral icterus, conjunctival injection, periorbital swelling ENT exam: Present: normal exam, mucous membranes moist Neck exam: Present: normal inspection, full ROM. Absent: tenderness, meningismus, lymphadenopathy Respiratory exam: Present: normal lung sounds bilaterally. Absent: respiratory distress, wheezes, rales, rhonchi, stridor Cardiovascular Exam: Present: regular rate, normal rhythm, normal heart sounds. Absent: systolic murmur, diastolic murmur, rubs, gallop, clicks GI/Abdominal exam: Present: soft, normal bowel sounds. Absent: distended, tenderness, guarding, rebound, rigid Psychiatric exam: Present: normal affect, normal mood Course Vital Signs 06/20/18 06/20/18 06/21/18 20:05 23:24 01:42 Temperature 98.4 F 98.7 F Pulse Rate 85 72 82 Respiratory 20 18 18 Rate Blood Pressure 132/83 128/81 113/70 O2 Sat by Pulse 97 98 100 Oximetry 06/21/18 03:20 Temperature 98.4 F Pulse Rate 75 Respiratory 17 Rate Blood Pressure 120/67 O2 Sat by Pulse 97 Oximetry Medical Decision Making - Medical Decision Making 37-year-old female presents to the emergency department for vaginal bleeding with concern for possible . CBC CMP unremarkable. Urine hCG initially negative. Serum hCG 137. Patient states she last had a period 7 weeks ago. Ultrasound was ordered which did not demonstrate an intrauterine . Findings are indeterminate for early , failed or ectopic. Given beta HCG of 137 it is possible patient has a very early . HCG will be repeated in 2 days. Patient's blood type is A-, patient will be given RhoGAM. Patient does have an OB at another facility that she will follow up with. She does have an appointment tomorrow. She will return here if she has any worsening symptoms. - Lab Data Result diagrams: 06/20/18 23:06 06/20/18 23:06 Lab Results 06/20/18 06/20/18 06/20/18 Range/Units 21:48 21:48 23:06 WBC (3.8-10.6) k/uL RBC (3.80-5.40) m/uL Hgb (11.4-16.0) gm/dL Hct (34.0-46.0) % MCV (80.0-100.0) fL MCH (25.0-35.0) pg MCHC (31.0-37.0) g/dL RDW (11.5-15.5) % Plt Count (150-450) k/uL Neutrophils % % Lymphocytes % % Monocytes % % Eosinophils % % Basophils % % Neutrophils # (1.3-7.7) k/uL Lymphocytes # (1.0-4.8) k/uL Monocytes # (0-1.0) k/uL Eosinophils # (0-0.7) k/uL Basophils # (0-0.2) k/uL Sodium (137-145) mmol/L Potassium (3.5-5.1) mmol/L Chloride (98-107) mmol/L Carbon Dioxide (22-30) mmol/L Anion Gap mmol/L BUN (7-17) mg/dL Creatinine (0.52-1.04) mg/dL Est GFR (CKD-EPI)AfAm (>60 ml/min/1.73 sqM) Est GFR (CKD-EPI)NonAf (>60 ml/min/1.73 sqM) Glucose (74-99) mg/dL Calcium (8.4-10.2) mg/dL Total Bilirubin (0.2-1.3) mg/dL AST (14-36) U/L ALT (9-52) U/L Alkaline Phosphatase (38-126) U/L Total Protein (6.3-8.2) g/dL Albumin (3.5-5.0) g/dL HCG, Quant mIU/mL Urine Color Colorless Urine Appearance Clear (Clear) Urine pH 5.5 (5.0-8.0) Ur Specific [place] 1.002 (1.001-1.035) Urine Protein Negative (Negative) Urine Glucose (UA) Negative (Negative) Urine Ketones Negative (Negative) Urine Blood Negative (Negative) Urine Nitrite Negative (Negative) Urine Bilirubin Negative (Negative) Urine Urobilinogen <2.0 (<2.0) mg/dL Ur Leukocyte Esterase Negative (Negative) Urine HCG, Qual Not Detected (Not Detectd) Influenza Type A RNA (Not Detectd) Influenza Type B (PCR) (Not Detectd) Blood Type A Negative Blood Type Recheck No 06/20/18 06/20/18 06/20/18 Range/Units 23:06 23:06 23:23 WBC 8.6 (3.8-10.6) k/uL RBC 4.14 (3.80-5.40) m/uL Hgb 12.3 (11.4-16.0) gm/dL Hct 35.7 (34.0-46.0) % MCV 86.2 (80.0-100.0) fL MCH 29.7 (25.0-35.0) pg MCHC 34.5 (31.0-37.0) g/dL RDW 12.7 (11.5-15.5) % Plt Count 263 (150-450) k/uL Neutrophils % 68 % Lymphocytes % 24 % Monocytes % 5 % Eosinophils % 1 % Basophils % 0 % Neutrophils # 5.9 (1.3-7.7) k/uL Lymphocytes # 2.1 (1.0-4.8) k/uL Monocytes # 0.4 (0-1.0) k/uL Eosinophils # 0.1 (0-0.7) k/uL Basophils # 0.0 (0-0.2) k/uL Sodium 138 (137-145) mmol/L Potassium 4.4 (3.5-5.1) mmol/L Chloride 103 (98-107) mmol/L Carbon Dioxide 25 (22-30) mmol/L Anion Gap 10 mmol/L BUN 13 (7-17) mg/dL Creatinine 0.73 (0.52-1.04) mg/dL Est GFR (CKD-EPI)AfAm >90 (>60 ml/min/1.73 sqM) Est GFR (CKD-EPI)NonAf >90 (>60 ml/min/1.73 sqM) Glucose 89 (74-99) mg/dL Calcium 9.4 (8.4-10.2) mg/dL Total Bilirubin 0.3 (0.2-1.3) mg/dL AST 21 (14-36) U/L ALT 15 (9-52) U/L Alkaline Phosphatase 54 (38-126) U/L Total Protein 6.7 (6.3-8.2) g/dL Albumin 4.1 (3.5-5.0) g/dL HCG, Quant 137.0 mIU/mL Urine Color Urine Appearance (Clear) Urine pH (5.0-8.0) Ur Specific [place] (1.001-1.035) Urine Protein (Negative) Urine Glucose (UA) (Negative) Urine Ketones (Negative) Urine Blood (Negative) Urine Nitrite (Negative) Urine Bilirubin (Negative) Urine Urobilinogen (<2.0) mg/dL Ur Leukocyte Esterase (Negative) Urine HCG, Qual (Not Detectd) Influenza Type A RNA Not Detected (Not Detectd) Influenza Type B (PCR) Not Detected (Not Detectd) Blood Type Blood Type Recheck Disposition Clinical Impression: Threatened miscarriage, Vaginal bleeding Disposition: HOME SELF-CARE Condition: Good Instructions (If sedation given, give patient instructions): Threatened Miscarriage (ED) Additional Instructions: Please follow-up with your OB at your appointment tomorrow. Please repeat blood work in 2 days. Please return here to the emergency department if you have any worsening symptoms. Is patient prescribed a controlled substance at d/c from ED?: No Referrals: Carlos Gipson DO [Primary Care Provider] - 1-2 days Time of Disposition: 03:41
[2018-06-21 04:13] VITALS: BP 115/72; PULSE 72; RESP 18
== END 2018-06-21 04:31 | disposition home or self-care (01) ==
LOC: EC 19:51
DX: O20.0 Threatened abortion (principal); Z3A.01 Less than 8 weeks gestation of pregnancy; Z87.891 Personal history of nicotine dependence; Z79.899 Other long term (current) drug therapy; Z88.5 Allergy status to narcotic agent
CPT/HCPCS: 99284; 96374; 96361 ×4; 96372; 36415; 86900; 86901; 80053; 85025; 86850; 81003; 81025; 84702; 87502; 76801; 76817; J2791; J2405

== ENCOUNTER → 2018-06-29 | Outpatient (CLI) | payer MEDICARE ==
[2018-06-29 22:57] LABS: HCG,Quantitative Serum 18.1 mIU/mL
== END ==
LOC: LABWHC1 15:33
PROVIDERS: ATTEND Physician Assistant Medical
DX: E03.8 Other specified hypothyroidism (principal)
CPT/HCPCS: 36415; 84443; 84702; 86376

== ENCOUNTER 2018-07-26 20:25 | Emergency (ER) | payer MEDICARE, OTHER ==
[2018-07-26 20:38] VITALS: RESP 18; TEMP 98.4
--- NOTE | 2018-07-26 21:10 | ED ---
General Adult HPI - General Chief complaint: Urogenital Stated complaint: Abd/Pelv Pain Source: patient Mode of arrival: ambulatory Limitations: no limitations - History of Present Illness Initial comments: Erin is a 38-year-old female with a history of Crohn's disease and a recent miscarriage who presents the emergency department today for evaluation of left- sided pelvic pain. Patient reports that she had a menses in April, in May she found out she was she was having some discomfort and was evaluated in the emergency Department her ultrasound revealed no , she had serial beta hCGs which decreased to 0 followed up with OB who advised her that she had had a completed miscarriage. Patient reports that on Wednesday, July 22 she be having some crampy pelvic pain similar to menstrual cramps and assume that she would be starting her menses, throughout the weekend she continued to have some cramps but did not start her menses. Around 2 PM today she began having severe stabbing left-sided pelvic pain. Pain became unbearable which prompted her come to the emergency department. She denies any change in bowel or bladder habits she denies any dysuria or hematuria. - Related Data Home Medications Medication Instructions Recorded Confirmed Hizentra 10gm 10 gm SQ TH 03/31/18 07/26/18 Albuterol Sulfate [Proair Hfa] 1 puff INHALATION RT-Q6H PRN 07/26/18 07/26/18 Dicyclomine [Bentyl] 20 mg PO QID 07/26/18 07/26/18 Doxycycline Hyclate 100 mg PO BID 07/26/18 07/26/18 FLUoxetine HCL [PROzac] 40 mg PO DAILY 07/26/18 07/26/18 Levothyroxine Sodium [Synthroid] 50 mcg PO DAILY 07/26/18 07/26/18 Allergies Allergy/AdvReac Type Severity Reaction Status Date / Time codeine AdvReac Nausea & Verified 07/26/18 21:39 Vomiting morphine AdvReac Nausea & Verified 07/26/18 21:39 Vomiting Review of Systems ROS Statement: Those systems with pertinent positive or pertinent negative responses have been documented in the HPI. ROS Other: All systems not noted in ROS Statement are negative. Past Medical History Past Medical History: GERD/Reflux Additional Past Medical History / Comment(s): common variable immune deficiency, crohns, colitis, miscarriage. History of Any Multi-Drug Resistant Organisms: None Reported Additional Past Surgical History / Comment(s): port placement and removal, port replacement B side Past Anesthesia/Blood Transfusion Reactions: No Reported Reaction Past Psychological History: Bipolar Smoking Status: Former smoker Past Alcohol Use History: None Reported Past Drug Use History: None Reported - Past Family History Mother Family Medical History: AFIB, Diabetes Mellitus, Hyperlipidemia, Hypertension, Osteoarthritis (OA) Additional Family Medical History / Comment(s): skin cancer Father Family Medical History: Cancer, Congestive Heart Failure (CHF), Coronary Artery Disease (CAD), Hypertension Additional Family Medical History / Comment(s): lung cancer General Exam - General Exam Comments Initial Comments: Physical Exam GENERAL: Patient is well-developed and well-nourished. Patient is nontoxic and well- hydrated and is in no distress. HENT: Normocephalic, Atraumatic. EYES: PERRL, EOMI PULMONARY: Unlabored respirations. No audible rales rhonchi or wheezing was noted. CARDIOVASCULAR: There is a regular rate and rhythm without any murmurs gallops or rubs. ABDOMEN: Soft and nontender with normal bowel sounds. SKIN: Skin is clear with no lesions or rashes and otherwise unremarkable. : Deferred NEUROLOGIC: Patient is alert and oriented x3. Moving all extremities spontaneously MUSCULOSKELETAL: Normal extremities with adequate strength and full range of motion. No lower extremity swelling or edema. No calf tenderness. PSYCHIATRIC: Normal psychiatric evaluation. Limitations: no limitations Limitations: no limitations Course Vital Signs 07/26/18 07/26/18 20:33 22:56 Temperature 98.4 F Pulse Rate 69 57 L Respiratory 18 18 Rate Blood Pressure 138/86 125/71 O2 Sat by Pulse 97 98 Oximetry Medical Decision Making - Medical Decision Making Patient was seen and evaluated, history is obtained from patient and review of medical record Patient presenting with left lower quadrant abdominal pain patient did have a in May a miscarriage in June she never had a confirmed intrauterine or any confirmatory ultrasound studies of . Ultrasound were obtained but never identified any . Patient has f ollowed up with OB she has had a beta hCG that return to 0. She does have a plan for having tubal ligation later this summer. Patient with 4 days of progressively worsening left lower quadrant abdominal pain no history of diverticulitis had a colonoscopy in March for intussusception. 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 Results were discussed with patient who agrees with plan for discharge, out patient follow up with GI. Return parameters discussed, all questions pertaining to care answered to the best of my ability, patient discharged in stable condition. - Lab Data Result diagrams: 07/26/18 22:10 07/26/18 21:10 Lab Results 07/26/18 07/26/18 07/26/18 Range/Units 21:10 21:29 21:29 WBC (3.8-10.6) k/uL RBC (3.80-5.40) m/uL Hgb (11.4-16.0) gm/dL Hct (34.0-46.0) % MCV (80.0-100.0) fL MCH (25.0-35.0) pg MCHC (31.0-37.0) g/dL RDW (11.5-15.5) % Plt Count (150-450) k/uL Neutrophils % % Lymphocytes % % Monocytes % % Eosinophils % % Basophils % % Neutrophils # (1.3-7.7) k/uL Lymphocytes # (1.0-4.8) k/uL Monocytes # (0-1.0) k/uL Eosinophils # (0-0.7) k/uL Basophils # (0-0.2) k/uL Sodium 139 (137-145) mmol/L Potassium 4.5 (3.5-5.1) mmol/L Chloride 107 (98-107) mmol/L Carbon Dioxide 22 (22-30) mmol/L Anion Gap 10 mmol/L BUN 15 (7-17) mg/dL Creatinine 0.62 (0.52-1.04) mg/dL Est GFR (CKD-EPI)AfAm >90 (>60 ml/min/1.73 sqM) Est GFR (CKD-EPI)NonAf >90 (>60 ml/min/1.73 sqM) Glucose 89 (74-99) mg/dL Calcium 9.6 (8.4-10.2) mg/dL Total Bilirubin 0.3 (0.2-1.3) mg/dL AST 25 (14-36) U/L ALT 20 (9-52) U/L Alkaline Phosphatase 58 (38-126) U/L Total Protein 6.5 (6.3-8.2) g/dL Albumin 3.9 (3.5-5.0) g/dL HCG, Quant <2.4 mIU/mL Urine Color Light Yellow Urine Appearance Clear (Clear) Urine pH 6.0 (5.0-8.0) Ur Specific [place] 1.015 (1.001-1.035) Urine Protein Negative (Negative) Urine Glucose (UA) Negative (Negative) Urine Ketones Negative (Negative) Urine Blood Trace H (Negative) Urine Nitrite Negative (Negative) Urine Bilirubin Negative (Negative) Urine Urobilinogen <2.0 (<2.0) mg/dL Ur Leukocyte Esterase Negative (Negative) Urine RBC 2 (0-5) /hpf Urine WBC <1 (0-5) /hpf Ur Squamous Epith Cells 1 (0-4) /hpf Urine Bacteria Rare H (None) /hpf Urine HCG, Qual Not Detected (Not Detectd) 07/26/18 Range/Units 22:10 WBC 6.5 (3.8-10.6) k/uL RBC 4.38 (3.80-5.40) m/uL Hgb 12.7 (11.4-16.0) gm/dL Hct 38.4 (34.0-46.0) % MCV 87.7 (80.0-100.0) fL MCH 28.9 (25.0-35.0) pg MCHC 33.0 (31.0-37.0) g/dL RDW 12.4 (11.5-15.5) % Plt Count 244 (150-450) k/uL Neutrophils % 55 % Lymphocytes % 34 % Monocytes % 6 % Eosinophils % 2 % Basophils % 0 % Neutrophils # 3.6 (1.3-7.7) k/uL Lymphocytes # 2.3 (1.0-4.8) k/uL Monocytes # 0.4 (0-1.0) k/uL Eosinophils # 0.1 (0-0.7) k/uL Basophils # 0.0 (0-0.2) k/uL Sodium (137-145) mmol/L Potassium (3.5-5.1) mmol/L Chloride (98-107) mmol/L Carbon Dioxide (22-30) mmol/L Anion Gap mmol/L BUN (7-17) mg/dL Creatinine (0.52-1.04) mg/dL Est GFR (CKD-EPI)AfAm (>60 ml/min/1.73 sqM) Est GFR (CKD-EPI)NonAf (>60 ml/min/1.73 sqM) Glucose (74-99) mg/dL Calcium (8.4-10.2) mg/dL Total Bilirubin (0.2-1.3) mg/dL AST (14-36) U/L ALT (9-52) U/L Alkaline Phosphatase (38-126) U/L Total Protein (6.3-8.2) g/dL Albumin (3.5-5.0) g/dL HCG, Quant mIU/mL Urine Color Urine Appearance (Clear) Urine pH (5.0-8.0) Ur Specific [place] (1.001-1.035) Urine Protein (Negative) Urine Glucose (UA) (Negative) Urine Ketones (Negative) Urine Blood (Negative) Urine Nitrite (Negative) Urine Bilirubin (Negative) Urine Urobilinogen (<2.0) mg/dL Ur Leukocyte Esterase (Negative) Urine RBC (0-5) /hpf Urine WBC (0-5) /hpf Ur Squamous Epith Cells (0-4) /hpf Urine Bacteria (None) /hpf Urine HCG, Qual (Not Detectd) Disposition Clinical Impression: Abdominal pain, Sclerosing mesenteritis Disposition: HOME SELF-CARE Condition: Good Instructions (If sedation given, give patient instructions): Abdominal Pain (ED) Is patient prescribed a controlled substance at d/c from ED?: No Referrals: Carlos Gipson DO [Primary Care Provider] - 1-2 days
[2018-07-26] MEDS ORDERED: SODIUM CHLORIDE 0.9% 1,000 ML IV ONE (21:46)
[2018-07-26] MEDS ORDERED: HYDROmorphone 1 MG/ML 1 ML SYRINGE IVP STA ×2 (21:51→22:47)
[2018-07-26] MEDS ORDERED: HYDROmorphone 0.5 MG/0.5 ML SYRINGE IVP STA (21:53)
[2018-07-26 21:58] LABS: Appearance,Urine Clear (Clear); Bacteria,Urine Rare /hpf; Bilirubin,Urine Negative (Negative); Blood,Urine Trace (Negative); Color,Urine Light Yellow; Glucose,Urine (UA) Negative (Negative); Ketones,Urine Negative (Negative); Leukocyte Esterase,Urine Negative (Negative); Nitrite,Urine Negative (Negative); Protein,Urine Negative (Negative); RBC,Urine 2 /hpf (0-5); Specific Gravity,Urine 1.015 (1.001-1.035); Squamous Epithelial Cell,Urine 1 /hpf (0-4); Urobilinogen,Urine <2.0 mg/dL (<2.0)
[2018-07-26 22:17] LABS: Basophils % (A) 0 %; Eosinophils # (A) 0.1 k/uL (0-0.7); Eosinophils % (A) 2 %; HCT 38.4 % (34.0-46.0); HGB 12.7 gm/dL (11.4-16.0); Lymphocytes # (A) 2.3 k/uL (1.0-4.8); Lymphocytes % (A) 34 %; MCH 28.9 pg (25.0-35.0); MCV 87.7 fL (80.0-100.0); Mean Platelet Volume 6.9; Monocytes # (A) 0.4 k/uL (0-1.0); Monocytes % (A) 6 %; Neutrophils # (A) 3.6 k/uL (1.3-7.7); Neutrophils % (A) 55 %; Platelet Count 244 k/uL (150-450); RBC 4.38 m/uL (3.80-5.40); RDW 12.4 % (11.5-15.5); WBC 6.5 k/uL (3.8-10.6)
[2018-07-26 22:27] LABS: ALT 20 U/L (9-52); AST 25 U/L (14-36); Albumin 3.9 g/dL (3.5-5.0); Alkaline Phosphatase 58 U/L (38-126); Anion Gap 10 mmol/L; Blood Urea Nitrogen 15 mg/dL (7-17); Calcium 9.6 mg/dL (8.4-10.2); Carbon Dioxide 22 mmol/L (22-30); Chloride 107 mmol/L (98-107); Glucose 89 mg/dL (74-99); Potassium 4.5 mmol/L (3.5-5.1); Sodium 139 mmol/L (137-145); Total Bilirubin 0.3 mg/dL (0.2-1.3); Total Protein 6.5 g/dL (6.3-8.2)
[2018-07-26 22:42] LABS: HCG,Quantitative Serum <2.4 mIU/mL
[2018-07-26 22:58] VITALS: PULSE 57
--- NOTE | 2018-07-26 23:04 | US ---
EXAM: US Pelvis, Transvaginal CLINICAL HISTORY: ITS.REASON US Reason: pain recent miscarriage TECHNIQUE: Real-time transvaginal pelvic ultrasound (complete) with image documentation. Transvaginal imaging was used for better evaluation of the endometrium and adnexa. COMPARISON: No relevant prior studies available. FINDINGS: Uterus/cervix: Unremarkable. Normal endometrial stripe thickness. No myometrial mass. Right ovary: Ovaries not visualized. Left ovary: See above. Free fluid: No free fluid. Bladder: Empty bladder which cannot be evaluated with this probe. IMPRESSION: No acute findings.
--- NOTE | 2018-07-27 00:08 | CT ---
EXAM: CT Abdomen and Pelvis With Intravenous Contrast CLINICAL HISTORY: ITS.REASON CT Reason: LLQ pain TECHNIQUE: Axial computed tomography images of the abdomen and pelvis with intravenous contrast. CTDI is 15 mGy and DLP is 599 mGy-cm. This CT exam was performed using one or more of the following dose reduction techniques: automated exposure control, adjustment of the mA and/or kV according to patient size, and/or use of iterative reconstruction technique. COMPARISON: No relevant prior studies available. FINDINGS: Lung bases: Unremarkable. No mass. No consolidation. ABDOMEN: Liver: Unremarkable. No mass. Gallbladder and bile ducts: No abnormal ductal dilation or stones. Pancreas: Unremarkable. No mass. No ductal dilation. Spleen: Unremarkable. No splenomegaly. Adrenals: Unremarkable. No mass. Kidneys and ureters: Unremarkable. No solid mass. No hydronephrosis. 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 PELVIS: Appendix: No findings to suggest acute appendicitis. Bladder: Unremarkable. No mass. Reproductive: Unremarkable as visualized. ABDOMEN and PELVIS: Intraperitoneal space: Unremarkable. No free air. No significant fluid collection. Bones/joints: No acute fracture. No dislocation. Soft tissues: Unremarkable. Vasculature: No abdominal aortic aneurysm. Lymph nodes: Unremarkable. No enlarged lymph nodes. IMPRESSION: Central mesenteric sclerosing mesenteritis.
[2018-07-27] MEDS ORDERED: HYDROmorphone 0.5 MG/0.5 ML SYRINGE IVP STA (00:26)
[2018-07-27 00:43] VITALS: BP 125/65
== END 2018-07-27 00:43 | disposition home or self-care (01) ==
LOC: EC 20:25
DX: K65.4 Sclerosing mesenteritis (principal); F31.9 Bipolar disorder, unspecified; Z79.890 Hormone replacement therapy; Z79.899 Other long term (current) drug therapy; Z88.5 Allergy status to narcotic agent; Z87.891 Personal history of nicotine dependence
CPT/HCPCS: 36415; 80053; 85025; 81001; 81025; 84702; 76830; 74177; 99284; 96374; 96376 ×2; 96361 ×2; J1170 ×2; Q9967

== ENCOUNTER → 2018-08-04 | Outpatient (CLI) | payer MEDICARE ==
[2018-08-04 20:58] LABS: Thyroid Peroxidase Antibodies 320.3 U/mL (0.0-60.0)
[2018-08-04 21:16] LABS: ACTH 10.8 pg/mL (0.00-45.99)
== END | disposition home or self-care (01) ==
LOC: LABWHC1 13:12
PROVIDERS: ATTEND Internal Medicine Endocrinology, Diabetes & Metabolism
DX: E03.8 Other specified hypothyroidism (principal); R53.83 Other fatigue
CPT/HCPCS: 36415; 82024; 82533; 82607; 84443; 86376

== ENCOUNTER 2018-08-17 18:49 | Emergency (ER) | payer MEDICARE, OTHER ==
[2018-08-17 19:06] VITALS: TEMP 99.1
[2018-08-17] MEDS ORDERED: ONDANSETRON 4 MG/2 ML VIAL IVP STA (19:28)
[2018-08-17] MEDS ORDERED: SODIUM CHLORIDE 0.9% 1,000 ML IV STA (19:28)
[2018-08-17] MEDS ORDERED: SODIUM CHLORIDE 0.9% 500 ML 500 ML IV STA (19:28)
[2018-08-17 20:04] LABS: Basophils % (A) 0 %; Eosinophils # (A) 0.1 k/uL (0-0.7); Eosinophils % (A) 2 %; HCT 38.9 % (34.0-46.0); Lymphocytes # (A) 1.2 k/uL (1.0-4.8); Lymphocytes % (A) 19 %; MCH 28.3 pg (25.0-35.0); MCHC 33.4 g/dL (31.0-37.0); MCV 84.5 fL (80.0-100.0); Mean Platelet Volume 7.6; Monocytes # (A) 0.3 k/uL (0-1.0); Monocytes % (A) 5 %; Neutrophils # (A) 4.6 k/uL (1.3-7.7); Neutrophils % (A) 73 %; Platelet Count 194 k/uL (150-450); RDW 12.5 % (11.5-15.5); WBC 6.4 k/uL (3.8-10.6)
[2018-08-17 20:13] LABS: ALT 21 U/L (9-52); AST 21 U/L (14-36); Albumin 3.9 g/dL (3.5-5.0); Alkaline Phosphatase 59 U/L (38-126); Amylase <30 U/L (30-110); Anion Gap 9 mmol/L; Blood Urea Nitrogen 13 mg/dL (7-17); Calcium 8.9 mg/dL (8.4-10.2); Carbon Dioxide 26 mmol/L (22-30); Chloride 103 mmol/L (98-107); Glucose 88 mg/dL (74-99); Lipase 37 U/L (23-300); Potassium 4.2 mmol/L (3.5-5.1); Sodium 138 mmol/L (137-145); Total Bilirubin 0.5 mg/dL (0.2-1.3); Total Protein 6.5 g/dL (6.3-8.2)
--- NOTE | 2018-08-17 20:38 | ED ---
General Adult HPI - General Source: patient Mode of arrival: wheelchair Limitations: no limitations <Halle Arroyo - Last Filed: 08/18/18 01:49> <Yamila Mcnamara - Last Filed: 08/18/18 21:52> - General Chief complaint: Nausea/Vomiting/Diarrhea Stated complaint: vomiting/diarrhea Time Seen by Provider: 08/17/18 19:09 - History of Present Illness Initial comments: 38-year-old female patient presents to the emergency department today for evaluation of vomiting and diarrhea. Patient states that symptoms started yesterday after eating possible contaminated food. States that several people who ate the food became ill with diarrheal illness. Patient states that she started with diarrhea and then developed vomiting today. Patient states she's been unable to keep down any food or fluids for the last 24 hours. 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 Patient does have low-grade fever and chills. She denies any hematemesis, hematochezia, or melena. Denies any rash. States that she does have some discomfort with left lower quadrant abdomen. Patient denies any recent rash, shortness breath, chest pain, back pain, numbness, tingling, dizziness, weakness, hematuria, dysuria, urinary urgency, urinary frequency, headache, visual changes, or any other complaints. (Halle Arroyo) - Related Data Home Medications Medication Instructions Recorded Confirmed Hizentra 10gm 10 gm SQ FR 03/31/18 08/17/18 Albuterol Sulfate [Proair Hfa] 1 puff INHALATION RT-Q6H PRN 07/26/18 08/17/18 FLUoxetine HCL [PROzac] 40 mg PO DAILY 07/26/18 08/17/18 Levothyroxine Sodium [Synthroid] 50 mcg PO DAILY 07/26/18 08/17/18 Pantoprazole [Protonix] 40 mg PO BID 08/17/18 08/17/18 Previous Rx's Medication Instructions Recorded Dicyclomine [Bentyl] 20 mg PO QID #12 tablet 08/17/18 Ondansetron [Zofran ODT] 4 mg PO Q8HR PRN #10 tab 08/17/18 Allergies Allergy/AdvReac Type Severity Reaction Status Date / Time codeine AdvReac Nausea & Verified 08/17/18 20:00 Vomiting morphine AdvReac Nausea & Verified 08/17/18 20:00 Vomiting Review of Systems ROS Other: All systems not noted in ROS Statement are negative. <Halle Arroyo - Last Filed: 08/18/18 01:49> ROS Other: All systems not noted in ROS Statement are negative. <Andrea Mcnamarasssharon Beyer - Last Filed: 08/18/18 21:52> ROS Statement: Those systems with pertinent positive or pertinent negative responses have been documented in the HPI. Past Medical History Past Medical History: GERD/Reflux Additional Past Medical History / Comment(s): common variable immune deficiency, crohns, colitis, miscarriage. History of Any Multi-Drug Resistant Organisms: None Reported Additional Past Surgical History / Comment(s): port placement and removal, port replacement B side Past Anesthesia/Blood Transfusion Reactions: No Reported Reaction Past Psychological History: Bipolar Smoking Status: Former smoker Past Alcohol Use History: None Reported Past Drug Use History: None Reported - Past Family History Mother Family Medical History: AFIB, Diabetes Mellitus, Hyperlipidemia, Hypertension, Osteoarthritis (OA) Additional Family Medical History / Comment(s): skin cancer Father Family Medical History: Cancer, Congestive Heart Failure (CHF), Coronary Artery Disease (CAD), Hypertension Additional Family Medical History / Comment(s): lung cancer <Halle Arroyo - Last Filed: 08/18/18 01:49> General Exam Limitations: no limitations General appearance: alert, in no apparent distress, other (This is a well- developed, well-nourished adult female patient in no acute distress. Vital signs upon presentation are temperature 99.1F. Pulse 79, respirations 18, blood pressure 121/77, pulse ox 97% on room air.) Eye exam: Present: normal appearance, PERRL, EOMI. Absent: scleral icterus, conjunctival injection, periorbital swelling ENT exam: Present: normal exam, normal oropharynx, mucous membranes moist Respiratory exam: Present: normal lung sounds bilaterally. Absent: respiratory distress, wheezes, rales, rhonchi, stridor Cardiovascular Exam: Present: regular rate, normal rhythm, normal heart sounds. Absent: systolic murmur, diastolic murmur, rubs, gallop, clicks GI/Abdominal exam: Present: soft, tenderness (Left lower quadrant), normal bowel sounds. Absent: distended, guarding, rebound, rigid Neurological exam: Present: alert, oriented X3, CN II-XII intact Psychiatric exam: Present: normal affect, normal mood Skin exam: Present: warm, dry, intact, normal color. Absent: rash <Halle Arroyo - Last Filed: 08/18/18 01:49> Course Vital Signs 08/17/18 08/17/18 08/17/18 19:04 22:35 23:55 Temperature 99.1 F Pulse Rate 79 68 70 Respiratory 18 16 16 Rate Blood Pressure 121/77 108/52 113/58 O2 Sat by Pulse 97 Oximetry Medical Decision Making - Lab Data Result diagrams: 08/17/18 19:50 08/17/18 19:50 <Halle Arroyo - Last Filed: 08/18/18 01:49> - Lab Data Result diagrams: 08/17/18 19:50 08/17/18 19:50 <Yamila Mcnamara - Last Filed: 08/18/18 21:52> - Medical Decision Making 38-year-old female patient with past medical history significant for variant immune deficiency presents to the emergency department today for evaluation of vomiting and diarrhea. Patient is also reporting body aches and headache. Physical examination is unremarkable. Abdomen mildly diffusely tender. Labs reviewed and were unremarkable. Patient was given medication and emergency department for symptom relief, upon reevaluation she does report feeling better. She'll be discharged home at this time with probable food poisoning as several relations became ill after eating the same meal. She'll be given prescription for Zofran. She declines Bentyl prescription. She is instructed to follow-up with her primary care physician for recheck in 1-2 days. Return parameters were discussed in detail. She verbalizes understanding and agrees with this plan. (Halle Arroyo) I was available for consultation in the emergency department. The history and physical exam were done by the midlevel provider. I was consulted for this patient's care. I reviewed the case with the midlevel provider and based on their presentation of the patient, I agree with the assessment, medical decision making and plan of care as documented. (Yamila Mcnamara) - Lab Data Lab Results 08/17/18 08/17/18 08/17/18 Range/Units 19:50 19:50 20:55 WBC 6.4 (3.8-10.6) k/uL RBC 4.60 (3.80-5.40) m/uL Hgb 13.0 (11.4-16.0) gm/dL Hct 38.9 (34.0-46.0) % MCV 84.5 (80.0-100.0) fL MCH 28.3 (25.0-35.0) pg MCHC 33.4 (31.0-37.0) g/dL RDW 12.5 (11.5-15.5) % Plt Count 194 (150-450) k/uL Neutrophils % 73 % Lymphocytes % 19 % Monocytes % 5 % Eosinophils % 2 % Basophils % 0 % Neutrophils # 4.6 (1.3-7.7) k/uL Lymphocytes # 1.2 (1.0-4.8) k/uL Monocytes # 0.3 (0-1.0) k/uL Eosinophils # 0.1 (0-0.7) k/uL Basophils # 0.0 (0-0.2) k/uL Sodium 138 (137-145) mmol/L Potassium 4.2 (3.5-5.1) mmol/L Chloride 103 (98-107) mmol/L Carbon Dioxide 26 (22-30) mmol/L Anion Gap 9 mmol/L BUN 13 (7-17) mg/dL Creatinine 0.65 (0.52-1.04) mg/dL Est GFR (CKD-EPI)AfAm >90 (>60 ml/min/1.73 sqM) Est GFR (CKD-EPI)NonAf >90 (>60 ml/min/1.73 sqM) Glucose 88 (74-99) mg/dL Calcium 8.9 (8.4-10.2) mg/dL Total Bilirubin 0.5 (0.2-1.3) mg/dL AST 21 (14-36) U/L ALT 21 (9-52) U/L Alkaline Phosphatase 59 (38-126) U/L Total Protein 6.5 (6.3-8.2) g/dL Albumin 3.9 (3.5-5.0) g/dL Amylase <30 L (30-110) U/L Lipase 37 (23-300) U/L Urine Color Yellow Urine Appearance Cloudy H (Clear) Urine pH 6.0 (5.0-8.0) Ur Specific [place] 1.030 (1.001-1.035) Urine Protein Trace H (Negative) Urine Glucose (UA) Negative (Negative) Urine Ketones Negative (Negative) Urine Blood Trace H (Negative) Urine Nitrite Negative (Negative) Urine Bilirubin Negative (Negative) Urine Urobilinogen <2.0 (<2.0) mg/dL Ur Leukocyte Esterase Negative (Negative) Urine RBC 5 (0-5) /hpf Urine WBC 7 H (0-5) /hpf Ur Squamous Epith Cells 2 (0-4) /hpf Urine Bacteria Rare H (None) /hpf Urine Mucus Many H (None) /hpf Disposition Is patient prescribed a controlled substance at d/c from ED?: No Time of Disposition: 22:14 <Halle Arroyo - Last Filed: 08/18/18 01:49> <Yamila Mcnamara - Last Filed: 08/18/18 21:52> Clinical Impression: Food poisoning Disposition: HOME SELF-CARE Condition: Good Instructions (If sedation given, give patient instructions): Food Poisoning (ED) Additional Instructions: Start with clear liquid diet and advance as tolerated. Take medications as directed. Follow-up with her primary care physician for recheck in 1-2 days. Return to the emergency department immediately for any new, worsening, or con cerning symptoms. Prescriptions: Dicyclomine [Bentyl] 20 mg PO QID #12 tablet Ondansetron [Zofran ODT] 4 mg PO Q8HR PRN #10 tab PRN Reason: Nausea Referrals: Carlos Gipson DO [Primary Care Provider] - 1-2 days
[2018-08-17] MEDS ORDERED: KETOROLAC 30 MG/ML 1 ML VIAL IVP STA (20:57)
[2018-08-17] MEDS ORDERED: DICYCLOMINE 10 MG/ML 2 ML AMP IM STA (20:57)
[2018-08-17 22:05] LABS: Appearance,Urine Cloudy (Clear); Bacteria,Urine Rare /hpf; Bilirubin,Urine Negative (Negative); Blood,Urine Trace (Negative); Color,Urine Yellow; Glucose,Urine (UA) Negative (Negative); Ketones,Urine Negative (Negative); Leukocyte Esterase,Urine Negative (Negative); Mucus,Urine Many /hpf; Nitrite,Urine Negative (Negative); Protein,Urine Trace (Negative); RBC,Urine 5 /hpf (0-5); Squamous Epithelial Cell,Urine 2 /hpf (0-4); Urobilinogen,Urine <2.0 mg/dL (<2.0); WBC,Urine 7 /hpf (0-5)
[2018-08-17] MEDS ORDERED: ONDANSETRON 4 MG ODT STARTER PACK 2 TAB BTL PO STA (22:15)
[2018-08-17] MEDS ORDERED: diphenhydrAMINE 50 MG/ML 1 ML VIAL IVP STA (22:18)
[2018-08-17] MEDS ORDERED: METOCLOPRAMIDE 5 MG/ML 2 ML VIAL IVP STA (22:18)
[2018-08-17] MEDS ORDERED: HYDROmorphone 1 MG/ML 1 ML SYRINGE IVP STA (22:18)
[2018-08-17 22:35] VITALS: RESP 16
[2018-08-17 23:57] VITALS: BP 113/58; PULSE 70
== END 2018-08-17 23:55 | disposition home or self-care (01) ==
LOC: EC 18:49
DX: T62.91XA Toxic effect of unspecified noxious substance eaten as food, accidental (unintentional), initial encounter (principal); K21.9 Gastro-esophageal reflux disease without esophagitis; F31.9 Bipolar disorder, unspecified; Z87.891 Personal history of nicotine dependence; Z79.890 Hormone replacement therapy; Z79.899 Other long term (current) drug therapy; Z88.5 Allergy status to narcotic agent
CPT/HCPCS: 36415; 80053; 82150; 83690; 85025; 81001; 99284; 96374; 96375 ×4; 96361 ×3; 96372; J1200; J0500; J2765; J2405; J1885; J1170; S0119

== ENCOUNTER 2018-09-23 20:04 | Emergency (ER) | payer MEDICARE, OTHER ==
[2018-09-23 20:36] VITALS: BP 135/86; PULSE 59; RESP 16; TEMP 98.8
[2018-09-23] MEDS ORDERED: ONDANSETRON ODT 4 MG TAB PO STA (21:31)
[2018-09-23] MEDS ORDERED: KETOROLAC 30 MG/ML 1 ML VIAL IVP STA (21:50)
--- NOTE | 2018-09-23 22:25 | ED ---
General Adult HPI - General Chief complaint: Headache Stated complaint: headache/sweating Time Seen by Provider: 09/23/18 20:53 Source: patient Mode of arrival: ambulatory Limitations: no limitations - History of Present Illness Initial comments: Patient is a 38-year-old female presenting to emergency Department with a right- sided headache. Patient states the headache started this morning and has progressively gotten worse. Patient states that she had taken Tylenol for pain with minimal improvement. Patient reports the pain started in the right p arietal lobe but is slowly progressive frontal lobe bilaterally. Patient states that she also has radiation along the trapezius. Patient states that she had previous episodes of migraines but that happened many years ago. Patient reports nausea. Patient denies any blurry vision, carry eyes runny nose or sinus pressure or gait instability. Patient reports taking weekly immunoglobulin therapy. Patient also reports for diaphoretic episodes today localized to the face only. - Related Data Home Medications Medication Instructions Recorded Confirmed Hizentra 10gm 10 gm SQ FR 03/31/18 08/17/18 Albuterol Sulfate [Proair Hfa] 1 puff INHALATION RT-Q6H PRN 07/26/18 08/17/18 FLUoxetine HCL [PROzac] 40 mg PO DAILY 07/26/18 08/17/18 Levothyroxine Sodium [Synthroid] 50 mcg PO DAILY 07/26/18 08/17/18 Pantoprazole [Protonix] 40 mg PO BID 08/17/18 08/17/18 Previous Rx's Medication Instructions Recorded Dicyclomine [Bentyl] 20 mg PO QID #12 tablet 08/17/18 Ondansetron [Zofran ODT] 4 mg PO Q8HR PRN #10 tab 08/17/18 Allergies Allergy/AdvReac Type Severity Reaction Status Date / Time codeine AdvReac Nausea & Verified 09/23/18 20:36 Vomiting morphine AdvReac Nausea & Verified 09/23/18 20:36 Vomiting Review of Systems ROS Statement: Those systems with pertinent positive or pertinent negative responses have been documented in the HPI. ROS Other: All systems not noted in ROS Statement are negative. Past Medical History Past Medical History: GERD/Reflux Additional Past Medical History / Comment(s): common variable immune deficiency, crohns, colitis, miscarriage. History of Any Multi-Drug Resistant Organisms: None Reported Past Surgical History: Cholecystectomy Additional Past Surgical History / Comment(s): port placement and removal, port replacement B side Past Anesthesia/Blood Transfusion Reactions: No Reported Reaction Past Psychological History: Bipolar Smoking Status: Former smoker Past Alcohol Use History: None Reported Past Drug Use History: None Reported - Past Family History Mother Family Medical History: AFIB, Diabetes Mellitus, Hyperlipidemia, Hypertension, Osteoarthritis (OA) Additional Family Medical History / Comment(s): skin cancer Father Family Medical History: Cancer, Congestive Heart Failure (CHF), Coronary Artery Disease (CAD), Hypertension Additional Family Medical History / Comment(s): lung cancer General Exam - General Exam Comments Initial Comments: Unremarkable neuro exam. +5 Upper and lower extremity strength and range of motion.. Limitations: no limitations General appearance: alert, in no apparent distress, obese Head exam: Present: atraumatic, normocephalic, normal inspection Expanded Head exam: Absent: abrasion, contusion, raccoon eyes, maloney's sign, general tenderness Eye exam: Present: normal appearance, PERRL, EOMI. Absent: scleral icterus, conjunctival injection Pupils: Present: normal accommodation ENT exam: Present: normal exam Neck exam: Present: normal inspection Respiratory exam: Present: normal lung sounds bilaterally Cardiovascular Exam: Present: regular rate, normal rhythm, normal heart sounds Extremities exam: Present: normal inspection, full ROM Back exam: Present: normal inspection, full ROM Neurological exam: Present: alert, oriented X3 Psychiatric exam: Present: normal affect, normal mood Skin exam: Present: warm, normal color Course Vital Signs 09/23/18 20:33 Temperature 98.8 F Pulse Rate 59 L Respiratory 16 Rate Blood Pressure 135/86 O2 Sat by Pulse 98 Oximetry Medical Decision Making - Medical Decision Making Patient is a 2-year-old female presenting to the emergency department with a headache. Patient was given Toradol for pain and Zofran for nausea. CT of the head was obtained to rule out brain pathology. Patient was also given a single dose of Compazine and Slade to control the nausea and headache. Patient states that she feels better. Return parameters were discussed with patient. Patient will be discharged and asked to follow-up with primary care. Patient advised to return to emergency department if symptoms worsen. case Discussed with physician. Disposition Clinical Impression: Headache Disposition: HOME SELF-CARE Condition: Stable Instructions (If sedation given, give patient instructions): Acute Headache (ED) Additional Instructions: Please follow up with primary care. Please return to emergency department if symptoms worsen. Is patient prescribed a controlled substance at d/c from ED?: No Referrals: Carlos Gipson DO [Primary Care Provider] - 1-2 days Time of Disposition: 23:55
--- NOTE | 2018-09-23 22:29 | CT ---
EXAM: CT Head Without Intravenous Contrast CLINICAL HISTORY: headaches, dizziness. TECHNIQUE: Axial computed tomography images of the head/brain without intravenous contrast. CTDI is 49.27 mGy and DLP is 1095 mGy-cm. This CT exam was performed using one or more of the following dose reduction techniques: automated exposure control, adjustment of the mA and/or kV according to patient size, and/or use of iterative reconstruction technique. Coronal and sagittal reconstructions are performed COMPARISON: No relevant prior studies available. FINDINGS: Brain: Unremarkable. No hemorrhage. No significant white matter disease. No edema. Ventricles: Unremarkable. No ventriculomegaly. Bones/joints: Unremarkable. No acute fracture. Soft tissues: Unremarkable. Sinuses: Unremarkable as visualized. No acute sinusitis. Mastoid air cells: Unremarkable as visualized. No mastoid effusion. IMPRESSION: Normal head/brain CT.
[2018-09-23] MEDS ORDERED: PROCHLORPERAZINE 5 MG TAB PO STA (22:59)
[2018-09-23] MEDS ORDERED: HYDROcodone/APAP 5-325MG 1 EACH TAB PO STA (23:06)
== END 2018-09-24 00:06 | disposition home or self-care (01) ==
LOC: EC 20:04
DX: R51 Headache (principal); R11.0 Nausea; R61 Generalized hyperhidrosis; K21.9 Gastro-esophageal reflux disease without esophagitis; F31.9 Bipolar disorder, unspecified; Z87.891 Personal history of nicotine dependence; Z79.890 Hormone replacement therapy; Z79.899 Other long term (current) drug therapy; Z88.5 Allergy status to narcotic agent
CPT/HCPCS: 70450; 99284; 96374; S0183; J1885

== ENCOUNTER → 2018-12-16 | Outpatient (CLI) | payer MEDICARE, OTHER | END | disposition home or self-care (01) | LOC: LABWHC1 11:55 | PROVIDERS: ATTEND Internal Medicine Endocrinology, Diabetes & Metabolism | DX: E03.8 Other specified hypothyroidism (principal) | CPT/HCPCS: 36415; 82607; 84439; 84443 ==

== ENCOUNTER 2019-11-19 21:28 | Emergency (ER) | payer MEDICARE, OTHER ==
[2019-11-19 21:48] VITALS: BP 125/77; PULSE 73; RESP 18; TEMP 98.5
--- NOTE | 2019-11-19 22:29 | ED ---
Extremity Problem HPI - General Chief complaint: Extremity Problem,Nontraumatic Stated complaint: L Leg Pain Time Seen by Provider: 11/19/19 21:59 Source: patient Mode of arrival: wheelchair Limitations: no limitations - History of Present Illness Initial comments: Patient is a 39-year-old female presenting to the emergency department with a chief complaint of left maher pain. Patient reports recently she was walking multiple miles per day in order to improve her general fitness. Patient states a 4 days ago she was walking and felt sudden onset of pain in the left maher and she made a sudden stop while she was walking fast. Patient reports the pain initially resolved, however it is returned. States she did continue to walk multiple miles per day through the pain. States most of the pain is located along the anterior aspect of the left maher. Patient reports the pain is only exacerbated with dorsiflexion. Denies any unilateral leg swelling, injuries to the ankle foot. Patient denies any chest pain or shortness of breath. Patient is not taking any exogenous estrogens. No history of PE or DVT. - Related Data Home Medications Medication Instructions Recorded Confirmed Hizentra 10gm 10 gm SQ FR 03/31/18 08/17/18 Albuterol Sulfate [Proair Hfa] 1 puff INHALATION RT-Q6H PRN 07/26/18 08/17/18 FLUoxetine HCL [PROzac] 40 mg PO DAILY 07/26/18 08/17/18 Levothyroxine Sodium [Synthroid] 50 mcg PO DAILY 07/26/18 08/17/18 Pantoprazole [Protonix] 40 mg PO BID 08/17/18 08/17/18 Previous Rx's Medication Instructions Recorded Dicyclomine [Bentyl] 20 mg PO QID #12 tablet 08/17/18 Ondansetron [Zofran ODT] 4 mg PO Q8HR PRN #10 tab 08/17/18 Allergies Allergy/AdvReac Type Severity Reaction Status Date / Time codeine AdvReac Nausea & Verified 11/19/19 21:48 Vomiting morphine AdvReac Nausea & Verified 11/19/19 21:48 Vomiting Review of Systems ROS Statement: Those systems with pertinent positive or pertinent negative responses have been documented in the HPI. ROS Other: All systems not noted in ROS Statement are negative. Past Medical History Past Medical History: GERD/Reflux Additional Past Medical History / Comment(s): common variable immune deficiency, crohns, colitis, miscarriage. History of Any Multi-Drug Resistant Organisms: None Reported Past Surgical History: Cholecystectomy Additional Past Surgical History / Comment(s): port placement and removal, port replacement B side Past Anesthesia/Blood Transfusion Reactions: No Reported Reaction Past Psychological History: Bipolar Smoking Status: Former smoker Past Alcohol Use History: None Reported Past Drug Use History: None Reported - Past Family History Mother Family Medical History: AFIB, Diabetes Mellitus, Hyperlipidemia, Hypertension, Osteoarthritis (OA) Additional Family Medical History / Comment(s): skin cancer Father Family Medical History: Cancer, Congestive Heart Failure (CHF), Coronary Artery Disease (CAD), Hypertension Additional Family Medical History / Comment(s): lung cancer General Exam Limitations: no limitations General appearance: alert, in no apparent distress, obese Head exam: Present: atraumatic, normocephalic, normal inspection Eye exam: Present: normal appearance, PERRL, EOMI Pupils: Present: normal accommodation ENT exam: Present: normal exam, normal oropharynx, mucous membranes moist, TM's normal bilaterally, normal external ear exam Neck exam: Present: normal inspection, full ROM. Absent: tenderness Respiratory exam: Present: normal lung sounds bilaterally. Absent: respiratory distress, wheezes Cardiovascular Exam: Present: regular rate, normal rhythm, normal heart sounds Extremities exam: Present: normal inspection (No overlying skin changes), full ROM (Pain only with dorsi flexion of the left foot.), tenderness (Tenderness along the anterior aspect of the left lower leg.), normal capillary refill, other (+2 dorsalis pedis and posterior tibialis bilaterally.). Absent: pedal edema (No signs of unilateral leg swelling.), joint swelling, calf tenderness ( Negative Homans bilaterally.) Back exam: Present: normal inspection, full ROM Neurological exam: Present: alert, oriented X3 Psychiatric exam: Present: normal affect, normal mood. Absent: depressed Skin exam: Present: warm, dry, intact, normal color Course Vital Signs 11/19/19 21:45 Temperature 98.5 F Pulse Rate 73 Respiratory 18 Rate Blood Pressure 125/77 O2 Sat by Pulse 99 Oximetry Medical Decision Making - Medical Decision Making Patient is a 39-year-old female presenting to emergency Department with chief complaint of left leg pain. On exam patient appears to have pain over the anterior aspect of left lower leg. Patient only appears to have pain with dorsi flexion. Over the last 2 weeks patient has been walking close to 10 miles per day. Patient is PERC negative. No chest pain or shortness of breath. No calf tenderness or pain. Very low suspicion for a DVT or PE. I suspect the patient has maher splints. Advised the patient to follow-up with primary care physician and physical therapy. Patient advised to stretch her leg multiple times per day. Return parameters were thoroughly discussed the patient was understanding and agreeable. Case discussed with physician. Disposition Clinical Impression: Maher splint of left lower extremity, Anterior maher splints Disposition: HOME SELF-CARE Condition: Stable Instructions (If sedation given, give patient instructions): Maher Splints (ED) Additional Instructions: Follow-up with your primary care and obtain referral for physical therapy. Return to emergency department if symptoms worsen. Apply warm compress, take Tylenol. Rest and elevate. Is patient prescribed a controlled substance at d/c from ED?: No Referrals: Carlos Gipson DO [Primary Care Provider] - 1-2 days Time of Disposition: 22:29
== END 2019-11-19 22:51 | disposition home or self-care (01) ==
LOC: EC 21:28
DX: S86.892A Other injury of other muscle(s) and tendon(s) at lower leg level, left leg, initial encounter (principal); F31.9 Bipolar disorder, unspecified; K21.9 Gastro-esophageal reflux disease without esophagitis; D83.9 Common variable immunodeficiency, unspecified; Z79.899 Other long term (current) drug therapy; Z88.5 Allergy status to narcotic agent; Z90.49 Acquired absence of other specified parts of digestive tract; Z87.19 Personal history of other diseases of the digestive system; Z87.891 Personal history of nicotine dependence; X58.XXXA Exposure to other specified factors, initial encounter; Y93.01 Activity, walking, marching and hiking
CPT/HCPCS: 99283

== ENCOUNTER 2020-04-09 08:27 | Day surgery (SDC) | payer MEDICARE, OTHER ==
[~2020-04-09 08:27] MED LIST changes: -ALPRAZolam 0.25 MG TAB PO STA; -GLUCAGON 1 MG/ML VIAL IM STA; +LACTATED RINGERS 1,000 ML IV SCH; +LIDOCAINE 1% (10MG/ML) FOR IV START INTRADERMA PRN
[2020-04-09 08:58] VITALS: TEMP 97.9
[2020-04-09] MEDS ORDERED: LIDOCAINE 1% INJ 10MG/ML (20 ML MDV) ONE (09:29)
[2020-04-09] MEDS ORDERED: PROPOFOL 10 MG/ML 20 ML VIAL IV ONE (09:29)
--- NOTE | 2020-04-09 10:19 | P.PCN ---
Date of Procedure: 04/09/20 Description of Procedure: Brief history: Patient is a pleasant 39-year-old female presenting for outpatient esophagogastroduodenoscopy and colonoscopy for evaluation of reflux, GERD and Crohn's disease. Patient has a history of uncomplicated Crohn's disease of the terminal ileum with a short segment of terminal ileum previously seen on MR enterography. Previously the patient had been on maintenance with 5in his age and but has stopped the medications. She presented back to the clinic with sy mptoms of abdominal pain and altered bowel function. Procedure performed: Esophagogastroduodenoscopy with biopsy Colonoscopy with polypectomy and biopsy Estimated blood loss: Minimal. Preoperative diagnosis: Reflux, GERD, Crohn's disease Anesthesia: [facility] Procedure: After informed consent was obtained from the patient was brought into the endoscopy unit and IV sedation was administered by anesthesia under continuous monitoring. Initially upper endoscopy was done. The Olympus GF 190 video endoscope was inserted into the mouth and esophagus intubated without any difficulty and was gradually advanced into the stomach and duodenum and carefully examined. The bulb and second part of the duodenum appeared normal, with biopsies taken. The scope was then withdrawn into the stomach adequately insufflated with air and upon careful examination the antrum and body, cardia and fundus appeared normal, except for some mild continued erythema in the antrum and body suggestive of mild gastritis with biopsies taken. The scope was then withdrawn into the esophagus. The GE junction was located at 41 cm to the incisors and biopsy. It appeared regular with no erythema erosions or ulceratio ns. Rest of the esophagus appeared normal. Patient tolerated the procedure well. At this time the patient continued to remain sedation. Initial digital rectal examination was normal. Olympus CF 190 video colonoscope was then inserted into the rectum and gradually advanced to the cecum without any difficulty. Careful examination was performed as the scope was gradually being withdrawn. The prep was excellent. The cecum, ascending colon, transverse colon, descending colon, sigmoid colon and rectum appeared normal, with random biopsies taken of the right colon, transverse colon, left colon and rectum in the setting of Crohn's disease. The terminal ileum appeared normal and biopsies were taken. A 4 mm flat polyp was removed with cold snare polypectomy. Retroflexion was performed in the rectum and no lesions were noted. Patient tolerated the procedure well. Impression: 1. Mild gastritis. Biopsies of the duodenum, antrum body and GE junction. 2. Normal-appearing colon from rectum to cecum with normal-appearing terminal ileum, random biopsies taken of the terminal ileum, right colon, transverse colon, left colon and rectum. Flat polyp removed with cold snare polypectomy. Recommendations: Findings of this examination were discussed with the patient as well as her ex- . Okay to resume diet. Okay to resume medications. Await pathology from biopsies and polypectomy. Follow-up in GI clinic as scheduled.
[2020-04-09 10:41] VITALS: BP 95/51; PULSE 48; RESP 18
== END 2020-04-09 10:57 | disposition home or self-care (01) ==
LOC: ORWHC2ENDO 08:27
PROVIDERS: ATTEND Internal Medicine
DX: K29.50 Unspecified chronic gastritis without bleeding (principal); D12.0 Benign neoplasm of cecum; K50.00 Crohn's disease of small intestine without complications; K21.9 Gastro-esophageal reflux disease without esophagitis; J45.909 Unspecified asthma, uncomplicated; E07.9 Disorder of thyroid, unspecified; F31.9 Bipolar disorder, unspecified; M54.81 Occipital neuralgia; K58.9 Irritable bowel syndrome, unspecified; Z88.5 Allergy status to narcotic agent; Z98.51 Tubal ligation status; Z79.890 Hormone replacement therapy; Z79.899 Other long term (current) drug therapy; Z86.73 Personal history of transient ischemic attack (TIA), and cerebral infarction without residual deficits; Z90.49 Acquired absence of other specified parts of digestive tract; Z98.890 Other specified postprocedural states; Z87.891 Personal history of nicotine dependence
CPT/HCPCS: 81025; 88305; 45380; 45385; 43239; J2001; J2704

== ENCOUNTER 2021-02-01 11:33 | Observation (INO) | payer MEDICARE, OTHER ==
--- NOTE | 2021-02-01 12:26 | ED ---
Chest Pain HPI - General Chief Complaint: Chest Pain Stated Complaint: sob Time Seen by Provider: 02/01/21 11:50 Source: patient, EMS Mode of arrival: EMS Limitations: no limitations - History of Present Illness Initial Comments: 40-year-old female who presents to the emergency department for chest pain. She is a transfer from hospital in [place], [place]. EMS arrives and accepting physician is unknown as I did not accept transfer. She states that she went into their facility last night with some chest pressure. Denies previous history of cardiac disease. Denies associated shortness of breath. Laboratory studies were conducted. Patient was given a nitro which essentially resolved her symptoms. They did start a heparin drip and transferred the patient's. She did have a detectable troponin at their facility. He denies previous history of coronary disease. States that she has seen a training and development coordinator before for diagnosis of bradycardia. States that her symptoms at this time are 2 out of 10. No ripping or tearing sensation. Denies fevers, chills or cough. Covid testing at their facility was negative. Denies any abdominal pain. No other alleviating, precipitating or modifying factors - Related Data Home Medications Medication Instructions Recorded Confirmed Hizentra 10gm 10 gm SQ LUKE 03/31/18 02/01/21 Albuterol Sulfate [Proair Hfa] 1 puff INHALATION RT-Q6H PRN 07/26/18 02/01/21 FLUoxetine HCL [PROzac] 40 mg PO QAM 07/26/18 02/01/21 Levothyroxine Sodium [Synthroid] 50 mcg PO DAILY 07/26/18 02/01/21 Pantoprazole [Protonix] 40 mg PO BID 08/17/18 02/01/21 Butalb/APAP/Caff 50-325-40Mg 1 tab PO Q6H PRN 04/05/20 02/01/21 [Fioricet 50-325-40] Cetirizine HCl [Zyrtec] 10 mg PO HS 04/05/20 02/01/21 EPINEPHrine (Auto Inject) [Epipen] 1 dose IM DIRECTED PRN 04/05/20 02/01/21 Pregabalin [Lyrica] 25 mg PO BID 04/05/20 02/01/21 Aspirin EC [Ecotrin Low Dose] 81 mg PO DAILY 02/01/21 02/01/21 Atorvastatin Calcium [Lipitor] 40 mg PO DAILY 02/01/21 02/01/21 Cyanocobalamin [Vitamin B-12 1,000 mcg SQ Q14D 02/01/21 02/01/21 Injection] Dicyclomine HCl 20 mg PO QID PRN 02/01/21 02/01/21 FLUoxetine HCL [PROzac] 20 mg PO DAILY 02/01/21 02/01/21 Glycopyrrolate [Robinul] 1 mg PO BID 02/01/21 02/01/21 OLANZapine [ZyPREXA] 5 mg PO HS 02/01/21 02/01/21 Ondansetron Odt [Zofran ODT] 4 mg PO TID PRN 02/01/21 02/01/21 Qbrexa 2.4% Cloth 1 applic TOPICAL DAILY 02/01/21 02/01/21 tiZANidine HCL 4 mg PO BID 02/01/21 02/01/21 Allergies Allergy/AdvReac Type Severity Reaction Status Date / Time bee venom protein (honey bee) Allergy Anaphylaxis Verified 02/01/21 12:49 morphine AdvReac Nausea & Verified 02/01/21 12:49 Vomiting Review of Systems ROS Statement: Those systems with pertinent positive or pertinent negative responses have been documented in the HPI. ROS Other: All systems not noted in ROS Statement are negative. EKG Findings - EKG Comments: EKG Findings:: EKG demonstrates sinus tachycardia with a ventricular rate of 54. [place] 142. QRS 84. QTC 440. No acute ST segment elevations or depressions concerning for ischemic changes Past Medical History Past Medical History: GERD/Reflux Additional Past Medical History / Comment(s): OCCIPITAL NEURALGIA. Common variable immune deficiency. Crohns. IBS History of Any Multi-Drug Resistant Organisms: None Reported Past Surgical History: Cholecystectomy, Tubal Ligation Additional Past Surgical History / Comment(s): port placement and removal, port replacement B side Past Anesthesia/Blood Transfusion Reactions: No Reported Reaction Additional Past Anesthesia/Blood Transfusion Reaction / Comment(s): TAKES MORE MEDS FOR IV SEDATION Past Psychological History: Bipolar, Depression Smoking Status: Former smoker Past Alcohol Use History: None Reported Past Drug Use History: None Reported - Past Family History Mother Family Medical History: AFIB, Diabetes Mellitus, Hyperlipidemia, Hypertension, Osteoarthritis (OA) Additional Family Medical History / Comment(s): skin cancer Father Family Medical History: Cancer, Congestive Heart Failure (CHF), Coronary Artery Disease (CAD), Hypertension Additional Family Medical History / Comment(s): lung cancer General Exam Limitations: no limitations Course Vital Signs 02/01/21 02/01/21 02/01/21 11:38 12:48 13:23 Temperature 98 F Pulse Rate 57 L 62 62 Respiratory 18 18 18 Rate Blood Pressure 119/63 119/63 105/76 O2 Sat by Pulse 99 96 96 Oximetry 02/01/21 02/01/21 02/01/21 13:38 14:49 15:29 Temperature 98 F 98 F Pulse Rate 61 60 60 Respiratory 18 18 18 Rate Blood Pressure 112/65 110/58 110/58 O2 Sat by Pulse 97 97 97 Oximetry Chest Pain MDM - MDM Upon arrival the patient was placed into room 2. I did review the patient's packet. She is having active chest pain at this time and therefore she was given 1 mg of Dilaudid and Nitropaste. She is given an aspirin and she was given 1 at the other facility. I did repeat laboratory studies. Laboratory studies demonstrate a negative troponin. Chest x-ray demonstrates no acute process. I recommended serial troponins are facility with cardiology consultation patient did agree to do to her active chest pain. Bridging orders were placed. Spoke with Dr. Banks who agreed to admit the patient. She was transferred to the floor in stable condition Disposition Clinical Impression: Chest pain Disposition: ADMITTED IP TO THIS HOSP Condition: Stable Is patient prescribed a controlled substance at d/c from ED?: No Decision to Admit Reason: Admit from EC Decision Date: 02/01/21 Decision Time: 14:20
[2021-02-01 12:59] LABS: Basophils % (A) 0 %; Eosinophils % (A) 1 %; HCT 36.8 % (34.0-46.0); HGB 12.5 gm/dL (11.4-16.0); Lymphocytes # (A) 1.6 k/uL (1.0-4.8); Lymphocytes % (A) 34 %; MCH 30.4 pg (25.0-35.0); MCHC 33.9 g/dL (31.0-37.0); MCV 89.5 fL (80.0-100.0); Mean Platelet Volume 8.5; Monocytes # (A) 0.2 k/uL (0-1.0); Monocytes % (A) 5 %; Neutrophils # (A) 2.8 k/uL (1.3-7.7); Neutrophils % (A) 58 %; Platelet Count 172 k/uL (150-450); RBC 4.11 m/uL (3.80-5.40); RDW 12.6 % (11.5-15.5); WBC 4.7 k/uL (3.8-10.6)
[2021-02-01 13:10] LABS: ALT 11 U/L (4-34); AST 28 U/L (14-36); African American GFR (CKD) >90 (>60 ml/min/1.73 sqM); Albumin 3.9 g/dL (3.5-5.0); Alkaline Phosphatase 66 U/L (38-126); Anion Gap 9 mmol/L; Blood Urea Nitrogen 8 mg/dL (7-17); Calcium 9.2 mg/dL (8.4-10.2); Carbon Dioxide 23 mmol/L (22-30); Chloride 107 mmol/L (98-107); Glucose 96 mg/dL (74-99); Non-African American GFR(CKD) >90 (>60 ml/min/1.73 sqM); Potassium 3.9 mmol/L (3.5-5.1); Sodium 139 mmol/L (137-145); Total Bilirubin 0.4 mg/dL (0.2-1.3); Total Protein 6.4 g/dL (6.3-8.2)
[2021-02-01 13:19] LABS: Partial Thromboplastin Time 24.4 sec (22.0-30.0); Prothrombin Time 10.4 sec (9.0-12.0)
[2021-02-01] MEDS ORDERED: NITROGLYCERIN OINT 1 INCH/GM PACKET TOPICAL STA (13:29)
--- NOTE | 2021-02-01 13:38 | XR ---
EXAMINATION TYPE: XR chest 2V DATE OF EXAM: 02/01/2021 COMPARISON: 04/04/2018 HISTORY: 40-year-old female with chest pain TECHNIQUE: PA and lateral views FINDINGS: The cardiomediastinal silhouette, aorta, and pulmonary vasculature are within normal limits. Lungs an d pleural spaces are clear. IMPRESSION: No acute cardiopulmonary process.
[2021-02-01] MEDS ORDERED: NALOXONE 0.4 MG/ML 1 ML VIAL IV PRN (14:20)
[2021-02-01] MEDS ORDERED: HYDROmorphone 1 MG/ML 1 ML SYRINGE IVP STA (14:39)
[2021-02-01] MEDS ORDERED: ALBUTEROL HFA INHALER INHALATION PRN (16:39)
[2021-02-01] MEDS ORDERED: DICYCLOMINE 20 MG TAB PO PRN (16:39)
[2021-02-01] MEDS ORDERED: ONDANSETRON ODT 4 MG TAB PO PRN (17:00)
[2021-02-01] MEDS ORDERED: BUTALB/APAP/CAFF 50-325-40MG TAB PO PRN (17:00)
[2021-02-01] MEDS ORDERED: ALPRAZolam 0.25 MG TAB PO PRN (17:02)
[2021-02-01] MEDS ORDERED: TEMAZEPAM 15 MG CAP PO PRN (17:02)
--- NOTE | 2021-02-01 17:41 | HP ---
HISTORY AND PHYSICAL DATE OF SERVICE: 02/01/2021. CHIEF COMPLAINT: Chest pain. HISTORY OF PRESENT ILLNESS: This 40-year-old woman with a past medical history of multiple medical problems, including GERD, strokes, history of common variable immunodeficiency, history of intussusception, history of bipolar depression, being followed by a primary physician in the [place] area, had chest pains yesterday which started with some shortness of breath. Subsequently the patient had a pressure type of pain, squeezing, 10/10 in intensity. The patient went to [place] and apparently there was a troponin spike and the patient was transferred to [facility] today and admitted for further evaluation and treatment. There is no history of fever, rigors or chills. No history of headache, loss of consciousness, seizures at this time. The patient was also seen by seen by for common variable immunodeficiency. PAST MEDICAL HISTORY: History of GERD, occipital neuralgia, bipolar, depression, history of common variable immunodeficiency. HOME MEDICATIONS: Dicyclomine, Zofran, Fioricet, tizanidine, Zyprexa, vitamin B12, Lipitor, Lyrica, Protonix, Synthroid, Ecotrin, Prozac, EpiPen, Zyrtec, Hizentra, as well as ProAir HFA. ALLERGIES: BEE VENOM AND MORPHINE. FAMILY HISTORY: History of atrial ablation, diabetes, hypertension, hyperlipidemia, DJD, skin cancer in the family. History of coronary artery disease in father at the age of 50. SOCIAL HISTORY: Previous history of smoking. No current smoking or alcohol intake. REVIEW OF SYSTEMS: ENT: No diminished hearing. No diminished vision. CARDIOVASCULAR SYSTEM: As mentioned earlier. RESPIRATORY SYSTEM: No cough, hemoptysis. GI: No nausea, vomiting, diarrhea. : No dysuria. NERVOUS SYSTEM: No numbness, weakness. ALLERGY/IMMUNOLOGY: As mentioned earlier. HEMATOLOGY/ONCOLOGY: No history of anemia. ENDOCRINE: No history of diabetes, hypothyroidism. CONSTITUTIONAL: As mentioned earlier. DERMATOLOGY: Negative. RHEUMATOLOGY: Negative. PSYCHIATRY: As mentioned earlier. PHYSICAL EXAMINATION: Patient alert and oriented x3. Pulse is 64, blood pressure 113/71, respirations 16, temperature 98.7, pulse ox 99% on 2 L. HEENT: Conjunctivae normal. Oral mucosa moist. NECK: Obese. CARDIOVASCULAR: S1, S2 muffled. RESPIRATION: Breath sounds diminished at the bases. No rhonchi. No crackles. ABDOMEN: Soft, obese, non-tender. No mass palpable. LEGS: No edema. No swelling. NERVOUS SYSTEM: Higher functions as mentioned earlier. Moves all 4 limbs. No focal motor or sensory deficit. LYMPHATICS: No lymph node palpable in neck, axillae or groin. SKIN: No ulcer, rash, bleeding. JOINTS: No active deforming arthropathy. LABS: CBC within normal limits. INR is 1. CMP within normal limits. Troponins are negative. The EKG which is available showed sinus bradycardia with some ST-T changes. Chest x-ray, personally reviewed, showed no acute abnormality. ASSESSMENT: 1. Chest pain. Rule out coronary artery disease. 2. Possible unstable angina. 3. Shortness of breath for evaluation. 4. History of gastroesophageal reflux disease. 5. History of occipital neuralgia. 6. History of common variable immunodeficiency. 7. Family history of premature coronary artery disease. 8. History of Crohn's disease. 9. History of irritable bowel syndrome. 10.History of intussusception. 11.History of cholecystectomy. 12.History of bipolar, depression. 13.History of nicotine dependence. 14.Obesity with body mass index of 34.9. RECOMMENDATIONS AND DISCUSSION: In this 40-year-old woman who presented with multiple complex medical issues, we will monitor the patient closely. Unstable angina protocol. Symptomatic treatment. Cardiology consultation. Further testing, either a stress test or cardiac catheterization. Will continue to monitor. Otherwise, resume the home medications. Prognosis is guarded because of multiple complex medical issues. Further recommendations to follow. MMODL / IJN: [id number] / MTDD
[2021-02-01] MEDS ORDERED: CYANOCOBALAMIN 1,000 MCG/ML 1 ML VIAL SQ SCH (21:00)
[2021-02-01] MEDS: GLYCOPYRROLATE 1 MG TAB PO SCH (21:24)
[2021-02-01] MEDS: LORATADINE 10 MG TAB PO SCH (21:24)
[2021-02-01] MEDS: PREGABALIN 25 MG CAP PO SCH (21:24)
[2021-02-01] MEDS: ATORVASTATIN 40 MG TAB PO SCH (21:24)
[2021-02-01] MEDS: OLANZapine 5 MG TAB PO SCH (21:24)
[2021-02-01] MEDS: tiZANidine 4 MG TAB PO SCH (21:26)
[2021-02-02] MEDS: LEVOTHYROXINE 50 MCG TAB PO SCH (06:14)
[2021-02-02] MEDS: PREGABALIN 25 MG CAP PO SCH ×2 (07:04→20:21)
[2021-02-02] MEDS: ASPIRIN 81 MG PO SCH ×2 (07:04→09:33)
[2021-02-02] MEDS: GLYCOPYRROLATE 1 MG TAB PO SCH ×2 (07:04→20:22)
[2021-02-02] MEDS: tiZANidine 4 MG TAB PO SCH ×2 (07:04→20:21)
[2021-02-02] MEDS: PANTOPRAZOLE 40 MG TABLET PO SCH ×2 (07:04→17:10)
[2021-02-02] MEDS: FLUoxetine HCL 20 MG CAP PO SCH ×2 (07:04)
[2021-02-02] MEDS: [UNRECOGNIZED DRUG - OTHER] TOPICAL SCH (07:08)
[2021-02-02] MEDS ORDERED: SODIUM CHLORIDE 0.9% 1,000 ML in EMPTY BAG 1 BAG IV ONE (09:22)
[2021-02-02] MEDS ORDERED: ALPRAZolam 0.25 MG TAB PO PRN (09:22)
[2021-02-02] MEDS ORDERED: ALPRAZolam 0.5 MG TAB PO PRN (09:22)
[2021-02-02] MEDS ORDERED: NITROGLYCERIN SL TABS 0.4 MG TAB SUBLINGUAL PRN (09:22)
[2021-02-02] MEDS ORDERED: HEPARIN SODIUM 1,000 UN/ML (10ML VL) IV ONE (09:24)
[2021-02-02] MEDS ORDERED: HEPARIN SODIUM 1,000 UN/ML (10ML VL) IV PRN (09:24)
--- NOTE | 2021-02-02 09:32 | P.CRDCN ---
History of Present Illness History of present illness: HISTORY OF PRESENTING ILLNESS Patient is a pleasant 40-year-old female with history of hyperlipidemia, prior TIAs, common variable immunodeficiency, bipolar disorder, obesity who presents secondary to chest pressure and shortness breath. Patient states starting on Wednesday she had initially a feeling of shortness of breath while just sitting. She states she then started to develop a chest pressure sensation and therefore went to emergency department in the [place] area. Blood work there showed very minimally elevated troponin however by the time she came to our emergency department it has been normal. She was given nitroglycerin which improved her chest pressure and she also states her heart rate was somewhat elevated during the chest pressure at approximately 90, normally she is round 50. After given a nitro her chest pressure improved however she still does have some mild dyspnea. Yesterday when she walked from the bathroom she started gaining more of the chest pressure and therefore Nitropaste was given. Now she is currently chest pain-free. She previously smoked however quit approximately 4 years ago, no alcohol, strong family history of father with CT in his late 40s as well as bypass. She was placed on Lipitor after a TIA however states she has felt very fatigued on it, no obvious muscle cramps. EKG from February 01 showed sinus bradycardia 54 bpm, normal axis, no significant ST or T-wave abnormalities. ProBNP noted to be 123, troponins negative 3 at our facility. REVIEW OF SYSTEMS At the time of my exam: CONSTITUTIONAL: Denies fever or chills. CARDIOVASCULAR: +chest pain, +shortness of breath, no PND or palpitations. RESPIRATORY: Denies cough. GASTROINTESTINAL: Denies abdominal pain, diarrhea, constipation, nausea or vomiting. MUSCULOSKELETAL: Denies myalgias. NEUROLOGIC: Denies numbness, tingling or weakness. ENDOCRINE: Denies fatigue, weight change, polydipsia or polyurina. GENITOURINARY: Denies burning, hematuria or urgency with micturation. HEMATOLOGIC: Denies history of anemia or bleeding. PHYSICAL EXAMINATION Vital signs reviewed. CONSTITUTIONAL: No apparent distress. HEENT: Head is normocephalic. Pupils are equal, round. Sclerae anicteric. Mucous membranes of the mouth are moist. No JVD. No carotid bruit. CHEST EXAMINATION: Lungs are clear to auscultation. No chest wall tenderness is noted on palpation or with deep breathing. HEART EXAMINATION: Regular rate and rhythm. S1, S2 heard. No murmurs, gallops or rub. ABDOMEN: Soft, nontender. Positive bowel sounds. EXTREMITIES: 2+ peripheral pulses, no lower extremity edema and no calf tenderness. NEUROLOGIC EXAMINATION: Patient is awake, alert and oriented x3. ASSESSMENT 1. Unstable angina 2. Hypertension 3. Hyperlipidemia 4. Obesity 5. Previous TIA 6. Strong family history of coronary artery disease 7. Dyspnea likely related to unstable angina 8. Possible statin intolerance with severe fatigue since starting after her TIA PLAN Patient is having fairly classic angina which is new since Wednesday. She has been having dyspnea and chest pressure which is worse with exertion, improved with rest, improved with nitroglycerin and minimally elevated troponins at outside hospital. We will continue with aspirin, place patient on a heparin drip. Discussed recommendations of heart catheterization and discussed risks and benefits and patient is agreeable. Heart catheterization 02/03. Check 2-D echo. Apparent fatigue with Lipitor and may consider changing however we will continue with home dose for now. Past Medical History Past Medical History: GERD/Reflux Additional Past Medical History / Comment(s): OCCIPITAL NEURALGIA. Common variable immune deficiency. Crohns. IBS History of Any Multi-Drug Resistant Organisms: None Reported Past Surgical History: Cholecystectomy, Tubal Ligation Additional Past Surgical History / Comment(s): port placement and removal, port replacement B side Past Anesthesia/Blood Transfusion Reactions: No Reported Reaction Additional Past Anesthesia/Blood Transfusion Reaction / Comment(s): TAKES MORE MEDS FOR IV SEDATION Past Psychological History: Bipolar, Depression Smoking Status: Former smoker Past Alcohol Use History: None Reported Past Drug Use History: None Reported - Past Family History Mother Family Medical History: AFIB, Diabetes Mellitus, Hyperlipidemia, Hypertension, Osteoarthritis (OA) Additional Family Medical History / Comment(s): skin cancer Father Family Medical History: Cancer, Congestive Heart Failure (CHF), Coronary Artery Disease (CAD), Hypertension Additional Family Medical History / Comment(s): lung cancer Medications and Allergies Home Medications Medication Instructions Recorded Confirmed Type Hizentra 10gm 10 gm SQ LUKE 03/31/18 02/01/21 History Albuterol Sulfate [Proair Hfa] 1 puff INHALATION RT-Q6H PRN 07/26/18 02/01/21 History FLUoxetine HCL [PROzac] 40 mg PO QAM 07/26/18 02/01/21 History Levothyroxine Sodium [Synthroid] 50 mcg PO DAILY 07/26/18 02/01/21 History Pantoprazole [Protonix] 40 mg PO BID 08/17/18 02/01/21 History Butalb/APAP/Caff 50-325-40Mg 1 tab PO Q6H PRN 04/05/20 02/01/21 History [Fioricet 50-325-40] Cetirizine HCl [Zyrtec] 10 mg PO HS 04/05/20 02/01/21 History EPINEPHrine (Auto Inject) [Epipen] 1 dose IM DIRECTED PRN 04/05/20 02/01/21 History Pregabalin [Lyrica] 25 mg PO BID 04/05/20 02/01/21 History Aspirin EC [Ecotrin Low Dose] 81 mg PO DAILY 02/01/21 02/01/21 History Atorvastatin Calcium [Lipitor] 40 mg PO DAILY 02/01/21 02/01/21 History Cyanocobalamin [Vitamin B-12 1,000 mcg SQ Q14D 02/01/21 02/01/21 History Injection] Dicyclomine HCl 20 mg PO QID PRN 02/01/21 02/01/21 History FLUoxetine HCL [PROzac] 20 mg PO DAILY 02/01/21 02/01/21 History Glycopyrrolate [Robinul] 1 mg PO BID 02/01/21 02/01/21 History OLANZapine [ZyPREXA] 5 mg PO HS 02/01/21 02/01/21 History Ondansetron Odt [Zofran ODT] 4 mg PO TID PRN 02/01/21 02/01/21 History Qbrexa 2.4% Cloth 1 applic TOPICAL DAILY 02/01/21 02/01/21 History tiZANidine HCL 4 mg PO BID 02/01/21 02/01/21 History Allergies Allergy/AdvReac Type Severity Reaction Status Date / Time bee venom protein (honey bee) Allergy Anaphylaxis Verified 02/01/21 12:49 morphine AdvReac Nausea & Verified 02/01/21 12:49 Vomiting Physical Exam Vitals: Vital Signs Temp Pulse Pulse Resp BP BP Pulse Ox 02/02/21 07:00 97.8 F 58 L 16 95/55 97 02/02/21 02:00 52 L 14 02/02/21 01:27 98.4 F 52 L 14 85/45 99 02/01/21 20:00 64 16 02/01/21 18:40 98.1 F 64 16 113/64 99 02/01/21 15:30 98.7 F 64 16 113/71 99 02/01/21 15:29 98 F 60 18 110/58 97 02/01/21 14:49 98 F 60 18 110/58 97 02/01/21 13:38 61 18 112/65 97 02/01/21 13:23 62 18 105/76 96 02/01/21 12:48 62 18 119/63 96 02/01/21 11:38 98 F 57 L 18 119/63 99 Intake and Output 02/01/21 02/02/21 02/02/21 22:59 06:59 14:59 Intake Total 237 Balance 237 Intake: Oral 237 Other: # Voids 1 Results 02/01/21 12:48 02/01/21 12:48 Cardiac Enzymes 02/01/21 02/01/21 02/01/21 Range/Units 12:48 12:48 15:32 AST 28 (14-36) U/L Troponin I <0.012 <0.012 (0.000-0.034) ng/mL 02/01/21 Range/Units 20:21 AST (14-36) U/L Troponin I <0.012 (0.000-0.034) ng/mL Coagulation 02/01/21 Range/Units 12:48 PT 10.4 (9.0-12.0) sec APTT 24.4 (22.0-30.0) sec CBC 02/01/21 Range/Units 12:48 WBC 4.7 (3.8-10.6) k/uL RBC 4.11 (3.80-5.40) m/uL Hgb 12.5 (11.4-16.0) gm/dL Hct 36.8 (34.0-46.0) % Plt Count 172 (150-450) k/uL Comprehensive Metabolic Panel 02/01/21 Range/Units 12:48 Sodium 139 (137-145) mmol/L Potassium 3.9 (3.5-5.1) mmol/L Chloride 107 (98-107) mmol/L Carbon Dioxide 23 (22-30) mmol/L BUN 8 (7-17) mg/dL Creatinine 0.72 (0.52-1.04) mg/dL Glucose 96 (74-99) mg/dL Calcium 9.2 (8.4-10.2) mg/dL AST 28 (14-36) U/L ALT 11 (4-34) U/L Alkaline Phosphatase 66 (38-126) U/L Total Protein 6.4 (6.3-8.2) g/dL Albumin 3.9 (3.5-5.0) g/dL Current Medications Generic Name Dose Route Start Last Admin Trade Name Freq PRN Reason Stop Dose Admin Acetaminophen/Butalbital/Caffeine 1 each 02/01/21 17:00 02/01/21 21:24 Butalb/Apap/Caff 50-325-40mg Tab PO 1 each Q6H PRN Administration OCCIPITAL NEURALGIA Albuterol Sulfate 1 puff 02/01/21 16:39 Albuterol Hfa Inhaler INHALATION RT-Q6H PRN Shortness Of Breath Alprazolam 0.25 mg 02/01/21 17:02 Alprazolam 0.25 Mg Tab PO TID PRN Anxiety Alprazolam 0.25 mg 02/02/21 09:22 Alprazolam 0.25 Mg Tab PO Q6HR PRN Mild Anxiety Alprazolam 0.5 mg 02/02/21 09:22 Alprazolam 0.5 Mg Tab PO Q6HR PRN Moderate Anxiety Aspirin 81 mg 02/02/21 09:00 02/02/21 07:04 Aspirin 81 Mg PO 81 mg DAILY CARLOS Administration Aspirin 325 mg 02/02/21 09:22 Aspirin 325 Mg Tab PO 02/02/21 09:23 ONCE STA Atorvastatin Calcium 40 mg 02/01/21 21:00 02/01/21 21:24 Atorvastatin 40 Mg Tab PO 40 mg DAILY@2100 CARLOS Administration Atorvastatin Calcium 80 mg 02/02/21 09:22 Atorvastatin 80 Mg Tab PO 02/02/21 09:23 ONCE STA Cyanocobalamin 1,000 mcg 02/01/21 21:00 02/01/21 21:26 Cyanocobalamin 1,000 Mcg/Ml 1 Ml Vial SQ 1,000 mcg Q14D CARLOS Administration Dicyclomine HCl 20 mg 02/01/21 16:39 Dicyclomine 20 Mg Tab PO QID PRN IBS Epinephrine HCl 1 mg 02/01/21 17:00 Epinephrine 1 Mg/Ml 1 Ml Vial IM DIRECTED PRN Allergic Reaction Fluoxetine HCl 20 mg 02/02/21 09:00 02/02/21 07:04 Fluoxetine Hcl 20 Mg Cap PO 20 mg DAILY CARLOS Administration Fluoxetine HCl 40 mg 02/02/21 09:00 02/02/21 07:04 Fluoxetine Hcl 20 Mg Cap PO 40 mg QAM CARLOS Administration Glycopyrrolate 1 mg 02/01/21 21:00 02/02/21 07:04 Glycopyrrolate 1 Mg Tab PO 1 mg BID CARLOS Administration Sodium Chloride 1,000 ml/ IV 1,000 mls @ 113.398 mls/hr 02/02/21 09:22 Solution IV 02/02/21 18:11 .Q8H50M ONE 1 ML/KG/HR Heparin Sodium (Porcine) 10, 1,001 mls @ 999 mls/hr 02/03/21 07:00 000 unit/ Sodium Chloride IRRIGATION 02/03/21 23:00 ONCE PRN INTRA-OP Heparin Sodium (Porcine) 2,500 250.5 mls @ 250 mls/hr 02/03/21 07:00 unit/ Sodium Chloride IRRIGATION 02/03/21 23:00 ONCE PRN INTRA-OP Heparin Sodium/Sodium Chloride 250 mls @ 13.608 mls/hr 02/02/21 09:30 25,000 unit/ Sodium Chloride IV .[id number] [facility] Protocol 12 UNITS/KG/HR Levothyroxine Sodium 50 mcg 02/02/21 06:30 02/02/21 06:14 Levothyroxine 50 Mcg Tab PO 50 mcg DAILY@0630 CARLOS Administration Loratadine 10 mg 02/01/21 21:00 02/01/21 21:24 Loratadine 10 Mg Tab PO 10 mg HS CARLOS Administration Naloxone HCl 0.2 mg 02/01/21 14:20 Naloxone 0.4 Mg/Ml 1 Ml Vial IV Q2M PRN Opioid Reversal Nitroglycerin 0.4 mg 02/02/21 09:22 Nitroglycerin Sl Tabs 0.4 Mg Tab SUBLINGUAL Q5M PRN Chest Pain Non-Formulary Medication 1 applic 02/02/21 09:00 02/02/21 07:08 Qbrexa 2.4% Cloth TOPICAL Not Given DAILY CARLOS Non-Formulary Medication 10 gm 02/02/21 17:00 Hizentra 10gm SQ LUKE CARLOS Olanzapine 5 mg 02/01/21 21:00 02/01/21 21:24 Olanzapine 5 Mg Tab PO 5 mg HS CARLOS Administration Ondansetron HCl 4 mg 02/01/21 17:00 Ondansetron Odt 4 Mg Tab PO TID PRN Nausea Pantoprazole Sodium 40 mg 02/02/21 07:30 02/02/21 07:04 Pantoprazole 40 Mg Tablet PO 40 mg AC-BID CARLOS Administration Pregabalin 25 mg 02/01/21 21:00 02/02/21 07:04 Pregabalin 25 Mg Cap PO 25 mg BID CARLOS Administration Temazepam 15 mg 02/01/21 17:02 Temazepam 15 Mg Cap PO HS PRN Insomnia Tizanidine HCl 4 mg 02/01/21 21:00 02/02/21 07:04 Tizanidine 4 Mg Tab PO 4 mg BID CARLOS Administration Intake and Output 02/01/21 02/02/21 02/02/21 22:59 06:59 14:59 Intake Total 237 Balance 237 Intake: Oral 237 Other: # Voids 1 02/01/21 12:48 02/01/21 12:48
[2021-02-02] MEDS: ATORVASTATIN 40 MG TAB PO SCH ×2 (09:33→20:21)
[2021-02-02] MEDS: HEPARIN SOD,PORK IN 0.45% NACL 25,000 UNIT in 0.45% NACL 1 250ML.BAG IV SCH ×2 (10:20→23:30)
[2021-02-02 10:31] LABS: Basophils % (A) 0 %; Eosinophils % (A) 1 %; HCT 36.8 % (34.0-46.0); HGB 12.1 gm/dL (11.4-16.0); Lymphocytes % (A) 21 %; MCH 30.4 pg (25.0-35.0); MCHC 32.9 g/dL (31.0-37.0); MCV 92.4 fL (80.0-100.0); Mean Platelet Volume 8.3; Monocytes # (A) 0.2 k/uL (0-1.0); Monocytes % (A) 5 %; Neutrophils # (A) 3.5 k/uL (1.3-7.7); Neutrophils % (A) 72 %; Platelet Count 173 k/uL (150-450); RBC 3.98 m/uL (3.80-5.40); RDW 12.6 % (11.5-15.5); WBC 4.9 k/uL (3.8-10.6)
[2021-02-02 10:40] LABS: Partial Thromboplastin Time 23.4 sec (22.0-30.0); Prothrombin Time 10.4 sec (9.0-12.0)
[2021-02-02 12:05] LABS: African American GFR (CKD) 105.4 (60.0-200.0); Anion Gap 7.6 mmol/L (4.00-12.00); BUN/Creat Ratio 11.25 Ratio (12.00-20.00); Calcium 8.9 mg/dL (8.7-10.3); Carbon Dioxide 25.4 mmol/L (21.6-31.8); Non-African American GFR(CKD) 90.9 (60.0-200.0); Potassium 4.1 mmol/L (3.5-5.5)
[2021-02-02 12:33] LABS: Basophils # (A) 0.01 X 10*3/uL (0.00-0.10); Basophils % (A) 0.2 %; Eosinophils # (A) 0.03 X 10*3/uL (0.04-0.35); Eosinophils % (A) 0.6 %; HCT 34.2 % (37.2-46.3); HGB 11.2 g/dL (12.0-15.0); Lymphocytes # (A) 1.02 X 10*3/uL (0.90-5.00); Lymphocytes % (A) 21.9 %; MCH 29.6 pg (27.0-32.0); MCHC 32.7 g/dL (32.0-37.0); MCV 90.5 fL (80.0-97.0); Mean Platelet Volume 11.8 fL (9.5-12.2); Monocytes # (A) 0.34 X 10*3/uL (0.20-1.00); Monocytes % (A) 7.3 %; Neutrophils # (A) 3.25 X 10*3/uL (1.80-7.70); Neutrophils % (A) 69.8 %; Platelet Count 153 X 10*3/uL (140-440); RBC 3.78 X 10*6/uL (4.10-5.20); RDW 12.8 % (11.5-14.5); WBC 4.66 X 10*3/uL (4.50-10.00)
[2021-02-02] MEDS ORDERED: HIZENTRA SQ SCH (17:00)
[2021-02-02 17:05] LABS: Chol/HDL Ratio 3.19; LDL Cholesterol,Calculated 47.4 mg/dL (0.0-131.0); VLDL Calculation 22.6 mg/dL (5.00-40.00)
--- NOTE | 2021-02-02 18:59 | PN ---
PROGRESS NOTE DATE OF SERVICE: 02/02/2021 This 40-year-old woman was admitted with severe chest pain, is being closely monitored. Because of high suspicion, cardiac cath is being planned by Cardiology tomorrow. No chest pain. No palpitations. No fever. EXAM: Alert and oriented x4. Pulse 62 blood pressure 112/70, respiration 16, temperature 98.2, pulse ox 98% on room air. HEENT: Conjunctivae normal. Oral mucosa moist. NECK: No jugular venous distention. No lymph node enlargement. CARDIOVASCULAR: S1, S2, muffled. No S3, no S4, RESPIRATORY: Diminished breath sounds at the bases. ABDOMEN: Soft, nontender. LEGS: No edema, no swelling. NERVOUS SYSTEM: No focal deficits. LAB: APTT 32.8. ASSESSMENT: 1. Chest pain, possible unstable angina. 2. On IV heparin and heparin monitoring. 3. Shortness of breath for evaluation, negative D-dimer. 4. History of gastroesophageal reflux disease. 5. History of occipital neurology. 6. History of common variable immunodeficiency. 7. Family history of premature coronary artery disease. 8. History of Crohn's disease. 9. History of irritable bowel syndrome. 10.History of intussusception. 11.History of cholecystectomy. 12.History of bipolar depression. 13.History of nicotine dependence. 14.Obesity with body mass index 34.9. RECOMMENDATIONS AND DISCUSSION: I recommend to continue current management, continue symptomatic treatment. Cardiac cath per Cardiology. Otherwise guarded prognosis because of multiple complex medical issues. Continue the heparin monitoring. Further recommendations to follow. MMODL / IJN: [id number] /
[2021-02-02] MEDS: OLANZapine 5 MG TAB PO SCH (20:21)
[2021-02-02] MEDS: LORATADINE 10 MG TAB PO SCH (20:22)
[2021-02-03] MEDS ORDERED: ATORVASTATIN 80 MG TAB PO ONE (05:00)
[2021-02-03] MEDS ORDERED: ASPIRIN 325 MG TAB PO ONE (05:00)
[2021-02-03] MEDS: PREGABALIN 25 MG CAP PO SCH (05:49)
[2021-02-03] MEDS: PANTOPRAZOLE 40 MG TABLET PO SCH (05:49)
[2021-02-03] MEDS: LEVOTHYROXINE 50 MCG TAB PO SCH (05:49)
[2021-02-03 05:50] LABS: Glucose,Whole Blood 112 mg/dL (75-99)
[2021-02-03] MEDS: FLUoxetine HCL 20 MG CAP PO SCH ×2 (06:07)
[2021-02-03] MEDS: tiZANidine 4 MG TAB PO SCH (06:07)
[2021-02-03] MEDS: GLYCOPYRROLATE 1 MG TAB PO SCH (06:07)
[2021-02-03 06:50] LABS: Basophils % (A) 0 %; Eosinophils % (A) 0 %; HCT 34.7 % (34.0-46.0); HGB 11.9 gm/dL (11.4-16.0); Lymphocytes # (A) 1.8 k/uL (1.0-4.8); Lymphocytes % (A) 31 %; MCHC 34.3 g/dL (31.0-37.0); MCV 90.3 fL (80.0-100.0); Mean Platelet Volume 8.5; Monocytes # (A) 0.3 k/uL (0-1.0); Monocytes % (A) 5 %; Neutrophils # (A) 3.5 k/uL (1.3-7.7); Neutrophils % (A) 62 %; Platelet Count 167 k/uL (150-450); RBC 3.85 m/uL (3.80-5.40); RDW 12.7 % (11.5-15.5); WBC 5.7 k/uL (3.8-10.6)
[2021-02-03] MEDS ORDERED: HEPARIN SODIUM,PORCINE 10,000 UNIT in SODIUM CHLORIDE 0.9% 1,000 ML IRRIGATION PRN (07:00)
[2021-02-03] MEDS ORDERED: HEPARIN SODIUM,PORCINE 2,500 UNIT in SODIUM CHLORIDE 0.9% 250 ML IRRIGATION PRN (07:00)
[2021-02-03 07:02] LABS: Partial Thromboplastin Time 64.6 sec (22.0-30.0); Prothrombin Time 10.5 sec (9.0-12.0)
[2021-02-03 07:11] LABS: African American GFR (CKD) >90 (>60 ml/min/1.73 sqM); Anion Gap 9 mmol/L; Blood Urea Nitrogen 10 mg/dL (7-17); Calcium 8.8 mg/dL (8.4-10.2); Carbon Dioxide 21 mmol/L (22-30); Chloride 108 mmol/L (98-107); Glucose 110 mg/dL (74-99); Non-African American GFR(CKD) >90 (>60 ml/min/1.73 sqM); Potassium 4.2 mmol/L (3.5-5.1); Sodium 138 mmol/L (137-145)
[2021-02-03] MEDS: [UNRECOGNIZED DRUG - OTHER] TOPICAL SCH (09:43)
[2021-02-03] MEDS ORDERED: LIDOCAINE 1% INJ 10MG/ML (20 ML MDV) ONE (11:02)
[2021-02-03] MEDS ORDERED: VERAPAMIL 2.5 MG/ML 2 ML AMP ONE (11:02)
[2021-02-03] MEDS ORDERED: HEPARIN SODIUM 1,000 UN/ML (10ML VL) ONE (11:22)
[2021-02-03] MEDS ORDERED: fentaNYL (PF) 50 MCG/ML 2 ML AMP ONE (11:22)
[2021-02-03] MEDS ORDERED: LIDOCAINE 1% INJ 10MG/ML (20 ML MDV) SQ ONE (11:44)
[2021-02-03] MEDS ORDERED: VERAPAMIL SYRINGE (5 MG/10 ML) INTRAARTER ONE ×2 (11:44→11:48)
[2021-02-03] MEDS ORDERED: MIDAZOLAM 2 MG/2 ML VIAL IV ONE ×2 (11:44→11:51)
[2021-02-03] MEDS ORDERED: fentaNYL (PF) 50 MCG/ML 2 ML AMP IV ONE (11:44)
[2021-02-03] MEDS ORDERED: HEPARIN SODIUM 1,000 UN/ML (10ML VL) IV ONE (11:55)
[2021-02-03] MEDS ORDERED: IV FLUID CONTINUATION 1,000 ML IV ONE (12:02)
[2021-02-03] MEDS ORDERED: IOPAMIDOL-370 125ML BTL INJ ONE (12:02)
--- NOTE | 2021-02-03 12:10 | P.CARDCATH ---
Description of Procedure: PROCEDURES PERFORMED: Left heart catheterization, bilateral coronary angiography INDICATION: Chest pain and shortness breath concerning for unstable angina HISTORY: Issues pleasant 40-year-old female who has been experiencing increased shortness breath as well as chest pressure with minimal activity. Therefore heart catheterization was recommended for definitive diagnosis. CONSENT:I have discussed the risks, benefits and alternative therapies for the above-mentioned procedure and for both sedation/analgesia as well as necessary blood product administration, if indicated, as they pertain to this patient. The patient has indicated understanding and acceptance of the risks and procedures discussed. PROCEDURE: After the risks, benefits and alternatives of the above mentioned procedure explained in detail with the patient, informed consent was obtained. Patient was taken to the catheterization lab and prepped and draped in usual fashion. 1% lidocaine was used to anesthetize the right radial artery. A 6- Sinhala sheath was placed in the right radial artery using modified Seldinger technique. Left coronary angiography was performed with a 5-Sinhala JL 3.5 catheter and right coronary angiography was performed with a 5-Sinhala JR4 catheter in various views. A 5-Sinhala FR4 catheter was inserted into the left ventricle and pressure measurements were obtained. The right radial sheath was removed and a TR band was placed with hemostasis achieved. The patient tolerated the procedure well. Patient was transported back to the post catheterization holding area in stable condition. Conscious Sedation: Patient was monitored under the direct supervision of vision of myself for conscious sedation using Versed and fentanyl for a total duration of 17 minutes HEMODYNAMICS: Aorta: 116/67 LV: 116/5, LVEDP 19. There does appear to be a mild square root sign with early diastolic filling SELECTIVE CORONARY ARTERIOGRAPHY: LEFT MAIN: The left main is a large caliber vessel which bifurcates into the LAD and circumflex. There is no significant stenosis. LEFT ANTERIOR DESCENDING CORONARY ARTERY: LAD is a large caliber vessel which wraps around to the apex. There is no significant stenosis. LEFT CIRCUMFLEX CORONARY ARTERY: Left circumflex is a moderate caliber vessel without significant stenosis. RIGHT CORONARY ARTERY: The right coronary artery is a large caliber vessel which gives off a PDA and PLV branch and is the dominant vessel. There is no significant stenosis. FINAL IMPRESSION: 1. Normal coronary arteries as described above. 2. Elevated left sided filling pressures 3. Mild "square root sign "which may be associated with restriction or constriction. Clinical correlation recommended. PLAN: 1. Aggressive risk factor modification per most recent ACC/AHA guidelines. 2. Recommend diuretics on discharge and monitor response.
[2021-02-03] MEDS ORDERED: FUROSEMIDE 40 MG TAB PO SCH (12:15)
[2021-02-03] MEDS ORDERED: ACETAMINOPHEN TAB 325 MG TAB PO PRN (13:07)
[2021-02-03 15:11] VITALS: TEMP 97.5
--- NOTE | 2021-02-03 17:49 | DS ---
DISCHARGE SUMMARY DATE OF SERVICE: 02/03/2021 FINAL DIAGNOSES: 1. Chest pain, status post cardiac catheterization, normal coronary arteries. Possibly nonspecific. 2. Shortness of breath with a negative D-dimer, rule out cardiomyopathy or constrictive pericarditis. 3. Mild square root sign in the cardiac catheterization. 4. History of gastroesophageal reflux disease. 5. History occipital neuropathy. 6. History of common variable immune deficiency. 7. Family history of premature coronary artery disease. 8. History of Crohn's disease. 9. History of irritable bowel syndrome. 10.History of intussusception. 11.History of cholecystectomy. 12.History of bipolar depression. 13.History of nicotine dependence. 14.Obesity with body mass of 34.9. DISCHARGE DISPOSITION: The patient will be discharged in stable condition with guarded prognosis. Cardiology cleared the patient for discharge. HISTORY OF PRESENT ILLNESS: This 40-year-old woman with a past medical history of multiple medical problems admitted with chest pain and some shortness of breath. Evaluation was negative including cardiac cath. Minimal square root sign was noted. Two-D echo will be ordered and if the 2D echo is normal, patient will be discharged with the following advice and medications: 1. Diet is cardiac diet. 2. Activity limited until followup. 3. Follow up with the primary physician, in 2-3 days. 4. Follow up with Dr. Zhang as recommended. 5. Dicyclomine 20 mg q.i.d. p.r.n. 6. Ecotrin 81 mg daily. 7. Epinephrine as mentioned earlier. 8. Butalbital 1 tab q.6h p.r.n. 9. Lipitor 40 mg. 10.Lyrica 25 mg p.o. b.i.d. 11.Albuterol p.r.n. 12.Protonix 40 mg b.i.d. 13.Prozac 40 mg q.a.m. 14.Prozac 20 mg p.o. daily. 15.Q-Brexa. 16.Robinul 1 mg p.o. b.i.d. 17.Synthroid 50 mcg p.o. daily. 18.Tizanidine 4 mg p.o. b.i.d. 19.Vitamin B12 1000 mg subcu as before. 20.Zofran p.r.n. 21.Zyprexa 5 mg q.h.s. 22.Zyrtec 10 mg q.h.s. 23.Lasix 20 mg p.o. daily. 24.Patricia will be followed up in the outpatient setting. Once again, the patient will be discharged in stable condition with guarded prognosis. TARA / ANUPAM: [id number] / MTDD
[2021-02-03 17:57] VITALS: BP 108/71; PULSE 54; RESP 16
--- NOTE | 2021-02-04 09:55 | ECHOF ---
Referral Reason:LVF MEASUREMENTS -------- HEIGHT: 180.3 cm WEIGHT: 113.4 kg BP: 127/67 RVIDd: 2.9 cm (< 3.3) IVSd: 1.0 cm (0.6 - 1.1) LVIDd: 4.4 cm (3.9 - 5.3) LVPWd: 1.2 cm (0.6 - 1.1) IVSs: 1.5 cm LVIDs: 2.8 cm LVPWs: 1.6 cm LA Diam: 3.2 cm (2.7 - 3.8) LAESV Index (A-L): 19.31 ml/m Ao Diam: 3.0 cm (2.0 - 3.7) AV Cusp: 2.2 cm (1.5 - 2.6) MV EXCURSION: 15.271 mm (> 18.000) MV EF SLOPE: 79 mm/s (70 - 150) EPSS: 0.4 cm MV E Esau: 1.31 m/s MV DecT: 265 ms MV A Esau: 0.83 m/s MV E/A Ratio: 1.58 RAP: 5.00 mmHg RVSP: 32.12 mmHg FINDINGS -------- Sinus rhythm. This was a technically adequate study. The left ventricular size is normal. There is borderline concentric left ventricular hypertrophy. Overall left ventricular systolic function is normal with, an EF between 55 - 60 %. The right ventricle is normal in size. Normal LA size by volume 22+/-6 ml/m2. The right atrial size is normal. Interatrial and interventricular septum intact. The aortic valve is trileaflet, and appears structurally normal. No aortic stenosis or regurgitation. The mitral valve is normal. No mitral regurgitation. The tricuspid valve appears structurally normal. Mild tricuspid regurgitation present. Right vent ricular systolic pressure is normal at < 35 mmHg. Trace/mild (physiologic) pulmonic regurgitation. The aortic root size is normal. Normal inferior vena cava with normal inspiratory collapse consistent with estimated right atrial pre ssure of 5 mmHg. There is no pericardial effusion. CONCLUSIONS -------- 1. There is borderline concentric left ventricular hypertrophy. 2. Overall left ventricular systolic function is normal with, an EF between 55 - 60 %. 3. Normal LA size by volume 22+/-6 ml/m2. 4. The aortic valve is trileaflet, and appears structurally normal. No aortic stenosis or regurgitati on. 5. Mild tricuspid regurgitation present. 6. Trace/mild (physiologic) pulmonic regurgitation. 7. There is no pericardial effusion. TECHNOLOGY APPLICATIONS ENGINEER: Sherry Lopez RDCS
== END 2021-02-03 18:20 ==
LOC: EC 11:33 → 6NMEDSUR 14:21
PROVIDERS: ADMIT Internal Medicine; ATTEND Internal Medicine
DX: R07.89 Other chest pain (principal); R06.02 Shortness of breath; D83.9 Common variable immunodeficiency, unspecified; K50.90 Crohn's disease, unspecified, without complications; K21.9 Gastro-esophageal reflux disease without esophagitis; E78.5 Hyperlipidemia, unspecified; M54.81 Occipital neuralgia; F31.30 Bipolar disorder, current episode depressed, mild or moderate severity, unspecified; R00.1 Bradycardia, unspecified; E66.9 Obesity, unspecified; Z68.34 Body mass index [BMI] 34.0-34.9, adult; Z20.822 Contact with and (suspected) exposure to COVID-19; Z79.890 Hormone replacement therapy; Z79.82 Long term (current) use of aspirin; Z79.899 Other long term (current) drug therapy; Z88.5 Allergy status to narcotic agent; Z91.030 Bee allergy status; Z90.49 Acquired absence of other specified parts of digestive tract; Z98.51 Tubal ligation status; Z87.891 Personal history of nicotine dependence; Z86.73 Personal history of transient ischemic attack (TIA), and cerebral infarction without residual deficits; Z87.19 Personal history of other diseases of the digestive system; Z98.890 Other specified postprocedural states; Z83.3 Family history of diabetes mellitus; Z82.49 Family history of ischemic heart disease and other diseases of the circulatory system; Z83.49 Family history of other endocrine, nutritional and metabolic diseases; Z82.61 Family history of arthritis; Z80.1 Family history of malignant neoplasm of trachea, bronchus and lung; Z80.8 Family history of malignant neoplasm of other organs or systems
CPT/HCPCS: 96372; 96374; 99285; 36415; 93005; 93306; 93458; 85379; 83880; 80061; 80053; 80048 ×2; 83735; 84484; 85025 ×3; 85610 ×3; 85730 ×3; 87635; 71046; G0378 ×3; C1894; J2250; J3420; J0690; J2001; J3010; J1644 ×3; J1170; Q9967